=== PATIENT | female | born 1940 | race Caucasian/White ===

== ENCOUNTER 2016-10-29 08:51 | Observation (INO) ==
[2016-10-29] MEDS ORDERED: Aspirin 81 MG TAB.CHEW PO STA (09:18)
--- NOTE | 2016-10-29 09:21 | Emergency Department Note ---
Disposition Clinical Impression: Chest pain, Chest pain, rule out acute myocardial infarction Disposition: Admitted As Inpatient Chest Pain HPI - General Chief Complaint: ED Chest Pain Stated Complaint: CP Time Seen by Provider: 10/29/16 09:07 Source: patient Limitations: no limitations - History of Present Illness HPI Narrative: 76-year-old female with history of mesenteric and splenic vein thrombosis presents with chief complaint of chest pain. Patient said her pain started in her left arm one week ago and then went to her her left shoulder, currently it is in her left neck. Yesterday the pain went to her upper back and chest. Pain is an ache it is not associated nausea, vomiting, diaphoresis, shortness of breath. Denies any history of heart disease. Denies history of congestive heart failure. Patient is an active smoker since age 14. She has a family history of cardiac disease. Severity scale (1-10): 5 - Related Data Home Medications Medication Instructions Recorded Confirmed Metoprolol [Lopressor] 12.5 mg PO DAILY 02/03/15 06/14/15 Simvastatin [Zocor] 10 mg PO HS 02/03/15 06/14/15 GlipiZIDE [Glucotrol] 10 mg PO DAILY 02/18/15 06/14/15 Pantoprazole Sodium [Protonix] 40 mg PO DAILY 02/18/15 06/14/15 Allergies Allergy/AdvReac Type Severity Reaction Status Date / Time codeine AdvReac Gastrointestinal Verified 10/29/16 11:58 Upset Review of Systems: Constitutional: Denies fever, chills HEENT: Denies headache, vision changes, neck pain, sore throat, rhinorrhea Heart: Patient states she has chest pain, denies palpitations Lungs: Denies shortness of breath cough Abdomen: Denies abdominal pain nausea vomiting diarrhea Extremities: Reports swelling, denies lower extremity pain. Neuro: Denies numbness, and tingling Chest Pain PMH - Past Medical History Medical history: Reports: COPD, diabetes - Social History Smoking Status: Current every day smoker Alcohol use: Reports: none Drug use: Reports: none Physical Exam General: Alert and oriented to place time and situation. Without distress HEENT: Head atraumatic, normocephalic, EOMI, PERRLA, neck nontender to palpation , absent Lymphadenopathy, Moist Mucous Membranes, Heart: Regular rate and rhythm with no murmur Lungs: Decreased breath sounds bilaterally with diffuse wheezing. Abdomen: Soft nontender, nondistended positive bowel sounds Extremities: Bilateral 2+ pitting edema with mild redness on the distal fairchild. In: Patient has raised brown crusted lesion on her right back measuring 1.5 cm x 2 cm. She has a similar lesion on her abdomen, Neuro: Cranial nerves II through XII intact, sensation equal bilaterally, strength upper and lower extremity 5/5, alert oriented 3 Vascular: Pedal and radial pulses 2 out of 4 - General Limitations: no limitations General appearance: alert, in no apparent distress Course Course Narrative: Patient.EKG, troponin, chest x-ray, CBC, BMP. - Reevaluation(s) Reevaluation #1: Troponin, EKG, CBC, chest x-ray, BMP negative. BNP 109. Patient echocardiogram in 2014 showing 60% ejection fraction with mild diastolic dysfunction, no valvular disease, no wall motion abnormalities. She had a nuclear stress test in 2013negative for ischemia with a gated EF of 70%. Time: 10:32 Reevaluation #2: CTA negative. Will admit for CP rule out. Time: 11:11 Reevaluation #3: Dr. Figueredo accepted patient. Time: 11:26 Vital Signs Temperature 97.8 F 10/29/16 08:51 Pulse Rate 79 10/29/16 08:51 Respiratory Rate 22 10/29/16 08:51 Blood Pressure 137/75 10/29/16 08:51 O2 Sat by Pulse Oximetry 95 10/29/16 08:51 Temperature 97.8 F 10/29/16 08:51 Pulse Rate 79 10/29/16 08:51 Respiratory Rate 22 10/29/16 08:51 Blood Pressure 137/75 10/29/16 08:51 O2 Sat by Pulse Oximetry 95 10/29/16 08:51 Oxygen Delivery Oxygen Delivery Room Air Chest Pain - Medical Records Medical records reviewed: Yes I reviewed the patient's medical records. - Lab Data Lab results reviewed: Yes I reviewed the patient's lab results. Result diagrams: 10/29/16 09:54 10/29/16 09:54 Lab Results 10/29/16 10/29/16 10/29/16 Range/Units 09:54 09:54 09:54 WBC 7.3 (4.3-11.1) K/mcL RBC 4.52 (3.82-4.97) M/mcL Hgb 12.5 (11.5-15.4) g/dL Hct 38.8 (35.3-44.9) % MCV 85.8 (83.0-100.0) fL MCH 27.7 L (28.0-33.3) pg MCHC 32.2 (31.6-35.5) g/dL RDW 13.9 (11.5-14.5) % Plt Count 288 (140-400) K/mcL MPV 10.1 (9.4-12.4) fL Immature Gran % 0.4 (0-4) % Seg Neutrophils % 62.6 % Lymphocytes % 18.8 % Monocytes % 9.8 % Eosinophils % 7.8 % Basophils % 0.6 % Neutrophils # 4.6 (1.6-8.9) K/mcL Lymphocytes # 1.4 (0.6-4.6) K/mcL Monocytes # 0.7 (0.0-1.3) K/mcL Eosinophils # 0.6 (0.0-0.6) K/mcL Basophils # 0.0 (0.0-0.2) K/mcL Immature Plt Fraction 5.0 (1.1-6.1) % PT 11.1 (9.4-12.1) Seconds INR 1.0 APTT 29.8 (26.0-36.0) Seconds Sodium 141 (136-145) mEq/L Potassium 4.5 (3.5-4.5) mEq/L Chloride 109 (98-109) mEq/L Carbon Dioxide 23 (19-29) mEq/L BUN 15 (7-20) mg/dL Creatinine 0.96 (0.57-1.11) mg/dL Est GFR ( Amer) > 60 (> 60) Est GFR (Non-Af Amer) 57 L (> 60) BUN/Creatinine Ratio 16 (6-26) Glucose 262 H (70-99) mg/dL Calculated Osmolality 302 H (280-300) Calcium 8.8 (8.6-10.8) mg/dL Troponin I (0-0.03) ng/mL B-Natriuretic Peptide (0-100) pg/mL 10/29/16 10/29/16 Range/Units 09:54 09:54 WBC (4.3-11.1) K/mcL RBC (3.82-4.97) M/mcL Hgb (11.5-15.4) g/dL Hct (35.3-44.9) % MCV (83.0-100.0) fL MCH (28.0-33.3) pg MCHC (31.6-35.5) g/dL RDW (11.5-14.5) % Plt Count (140-400) K/mcL MPV (9.4-12.4) fL Immature Gran % (0-4) % Seg Neutrophils % % Lymphocytes % % Monocytes % % Eosinophils % % Basophils % % Neutrophils # (1.6-8.9) K/mcL Lymphocytes # (0.6-4.6) K/mcL Monocytes # (0.0-1.3) K/mcL Eosinophils # (0.0-0.6) K/mcL Basophils # (0.0-0.2) K/mcL Immature Plt Fraction (1.1-6.1) % PT (9.4-12.1) Seconds INR APTT (26.0-36.0) Seconds Sodium (136-145) mEq/L Potassium (3.5-4.5) mEq/L Chloride (98-109) mEq/L Carbon Dioxide (19-29) mEq/L BUN (7-20) mg/dL Creatinine (0.57-1.11) mg/dL Est GFR ( Amer) (> 60) Est GFR (Non-Af Amer) (> 60) BUN/Creatinine Ratio (6-26) Glucose (70-99) mg/dL Calculated Osmolality (280-300) Calcium (8.6-10.8) mg/dL Troponin I 0.00 (0-0.03) ng/mL B-Natriuretic Peptide 109 H (0-100) pg/mL - Radiology Data Radiology results reviewed: Yes I reviewed the patient's radiology results. - EKG Data EKG attestation: Yes I reviewed and interpreted this EKG. EKG results narrative: Sinus with rate 75, no ST elevation or depression, flattening of T waves. No changes from previous EKG. Sinus rhythm. Heart Score - Score History: Moderately Suspicious EKG: Normal Age: Greater than 65 Risk Factors: Equal/Greater than 3 risk factor or history of atherosclerotic disease Troponin: Less than normal limit HEART Score Total: 5 Attestation Statement - Attestation Attestation: I performed a history and physical examination of the patient and discussed his management with the resident. I reviewed the residents note and agree with the documented findings and plan of care. This is a 76-year-old female who presented with chest pain that sounds like she does not really have any previous cardiac history but had multiple risk factors from a cardiac standpoint. She also had a history of a splenic vein thrombosis in the past although when asking the patient about this she did not seem to remember much about that. In any case it seemed to be a potential risk for a pulmonary embolism. We have ruled out pulmonary embolism by a negative CT scan of the chest. Her first troponin has come back negative. She had some lower extremity swelling however there is no evidence of congestive heart failure on her chest x-ray. Her beta natruretic peptide is a little bit elevated. Lungs are clear, heart is regular. EKG interpreted by me showing sinus rhythm at a rate of 75, QRS of 92, QTC of 400, axis of 11. No ischemic changes. We have arranged admission to the hospitalist service See resident note for further details this patient's care.
[2016-10-29 10:04] LABS: Basophils % 0.6 %; Eosinophils # 0.6 K/mcL (0.0-0.6); Eosinophils % 7.8 %; Hematocrit 38.8 % (35.3-44.9); Hemoglobin 12.5 g/dL (11.5-15.4); Immature Granulocytes % 0.4 % (0-4); Lymphocytes # 1.4 K/mcL (0.6-4.6); Lymphocytes % 18.8 %; Mean Corpuscular HGB Conc 32.2 g/dL (31.6-35.5); Mean Corpuscular Hemoglobin 27.7 pg (28.0-33.3); Mean Corpuscular Volume 85.8 fL (83.0-100.0); Mean Platelet Volume 10.1 fL (9.4-12.4); Monocytes # 0.7 K/mcL (0.0-1.3); Monocytes % 9.8 %; Neutrophils # 4.6 K/mcL (1.6-8.9); Platelet Count 288 K/mcL (140-400); Red Blood Count 4.52 M/mcL (3.82-4.97); Red Cell Distribution Width 13.9 % (11.5-14.5); Segmented Neutrophils % 62.6 %
[2016-10-29 10:09] LABS: Prothrombin Time 11.1 Seconds (9.4-12.1)
[2016-10-29 10:11] LABS: Activated Partial Thrombo Time 29.8 Seconds (26.0-36.0)
[2016-10-29 10:17] LABS: BUN/Creatinine Ratio 16 (6-26); Blood Urea Nitrogen 15 mg/dL (7-20); Calcium 8.8 mg/dL (8.6-10.8); Carbon Dioxide 23 mEq/L (19-29); Chloride 109 mEq/L (98-109); Glucose 262 mg/dL (70-99); Osmolality,Calculated 302 (280-300); Potassium 4.5 mEq/L (3.5-4.5); Sodium 141 mEq/L (136-145); eGFR For African Americans > 60 (> 60); eGFR For Non-African Americans 57 (> 60)
[2016-10-29] MEDS ORDERED: Naloxone 0.4 MG/ML INJ IVP PRN (13:12)
--- NOTE | 2016-10-29 13:21 | Internal Med History&Physical ---
Date of Encounter: 10/29/16 Time of Encounter: 12:45 Assessment and Plan (1) Chest pain Current visit: Yes Status: Acute Patient with chest pain radiating to the back. Risk factors for coronary artery disease include age, sex, chronic smoking history, diabetes and hypertension. Will place patient for observation in the hospital. Trend troponins. Get 2-D echocardiogram. Telemetry. Check lipid profile. For associated pedal edema, we will give IV Lasix. Qualifiers: Chest pain type: precordial pain Qualified Code(s): R07.2 - Precordial pain (2) Left shoulder pain Current visit: Yes Status: Acute Acute on chronic left shoulder pain. Related to arthritis, possibly rheumatoid arthritis. Patient is on leflunomide and Plaquenil. Being followed by rheumatology. Patient has developed a erythematous macular spots on her extremities. We will stop leflunomide for now. Consult rheumatology. Qualifiers: Chronicity: acute Qualified Code(s): M25.512 - Pain in left shoulder (3) Essential hypertension Current visit: Yes Status: Chronic Monitor blood pressure. Resume home medications. We will adjust medications based on response (4) Diabetes mellitus Current visit: Yes Status: Chronic Check A1c. Monitor blood sugars. Sliding scale insulin. Diabetic diet. Qualifiers: Diabetes mellitus type: type 2 Diabetes mellitus complication status: with hyperglycemia Diabetes mellitus alf insulin use: without alf use Qualified Code(s): E11.65 - Type 2 diabetes mellitus with hyperglycemia (5) COPD (chronic obstructive pulmonary disease) Current visit: Yes Status: Chronic No acute exacerbation. Use albuterol inhalers as needed. Qualifiers: COPD type: unspecified COPD Qualified Code(s): J44.9 - Chronic obstructive pulmonary disease, unspecified (6) Skin macule or macular rash Current visit: Yes Status: Acute Patient with macular spots on extremities. Will hold leflunomide. Consider dermatology consult. Internal Medicine - H&P: HPI Chief complaint: Left arm pain, shoulder pain and left chest and back pain Admitted From: Emergency Dept Plans for Post Hospital Care: Home History of present illness: Ms. Barber is a 76 year old female patient with a history of arthritis, splenic and mesenteric vein thrombosis, COPD and diabetes mellitus type 2 presented to the ER with complaints of left arm pain that has been going on for about 2 weeks and progressively worsening. She is also been having left-sided chest pain radiating to the back since yesterday. She also has left shoulder pain. She has had arthritis for a long time especially in her left shoulder and is unable to lift her left hand above her head as a result of this. She takes Plaquenil and leflunomide. She denies any fever chills or night sweats. She reports her heart rhythm problem and also reports occasional palpitations and pedal edema. She complains of hearing her heartbeat in her ears. She has also noticed many Red colored spots on her skin especially in her upper extremities. No nausea or vomiting. No fever chills or night sweats. No cough. She does use albuterol inhaler occasionally. Past Med Surg Social Fam HX - Past Medical History Attestation: Yes The following information was validated with the patient. Source: patient, old records reviewed Medical history: COPD, diabetes - Social History Smoking Status: Current every day smoker Alcohol use: none Drug use: none - Additional Family History Additional family history: Reviewed and found to be noncontributory Internal Medicine - H&P: Meds GlipiZIDE [Glucotrol] 20 mg PO DAILY 02/18/15 [History] Pantoprazole Sodium [Protonix] 40 mg PO DAILY 02/18/15 [History] Albuterol Sulfate [Ventolin Hfa] 2 puff IH Q4H PRN 10/29/16 [History] Alendronate Sodium [Fosamax] 70 mg PO QWEEK 10/29/16 [History] Hydroxychloroquine [Plaquenuil] 300 mg PO DAILY 10/29/16 [History] Leflunomide [Arava] 20 mg PO DAILY 10/29/16 [History] Metoprolol XL (24 HR) Succ [Toprol XL] 25 mg PO DAILY 10/29/16 [History] Pravastatin Sodium [Pravachol] 80 mg PO DAILY 10/29/16 [History] Allergies codeine Adverse Reaction (Verified 10/29/16 11:58) Gastrointestinal Upset All Systems PM: A 10-system review of systems was performed and is negative for pertinent findings except as documented above in the HPI. - Constitutional Constitutional: no chills, no fever(s), no night sweats - EENT Eyes: no change in vision, no discharge, no pain, no photophobia Ears: no ear discharge, no ear pain, no tinnitus Nose, mouth and throat: no dysphagia, no nasal discharge, no neck pain, no sore throat - Cardiovascular Cardiovascular ROS IM: chest pain, edema, palpitations, no diaphoresis, no dyspnea, no lightheadedness, no syncope - Respiratory Respiratory: no cough, no dyspnea, no wheezing, no excessive phlegm production - Gastrointestinal Gastrointestinal: no abdominal pain, no diarrhea, no hematemesis, no hematochezia, no melena, no nausea, no vomiting - Genitourinary Genitourinary: no change in urinary stream, no dysuria, no flank pain, no hematuria - Musculoskeletal Musculoskeletal ROS IM: arthralgias, no numbness, no tingling Additional comments: Left shoulder pain - Integumentary Integumentary IM: no rash, no unusual bruising - Neurological Neurological ROS: no confusion, no convulsions, no focal weakness, no numbness, no tingling, no tremor(s) - Hematologic/Lymphatic Hematologic/Lymphatic: no easy bruising - Constitutional Vitals: Temp Pulse Resp BP Pulse Ox 0 F L 69 18 172/85 95 10/29/16 13:05 10/29/16 10:56 10/29/16 13:05 10/29/16 13:05 10/29/16 08:51 General appearance: Present: cooperative, mild distress, A&O X 3, answers questions appropriately - Eye Eye exam: Present: EOMI, PERRL, conjuntiva pink, sclera anicteric - Neck Neck exam general surgery: Present: supple, trachea midline. Absent: lymphadenopathy - Respiratory Respiratory exam: Present: prolonged expiratory phase, rhonchi, wheezes. Absent : accessory muscle use, rales - Cardiovascular Cardiovascular exam: Present: RRR, +S1, +S2. Absent: diastolic murmur, gallop, rubs, systolic murmur - GI/Abdominal GI/Abdominal exam: Present: normal bowel sounds, soft, no peritoneal signs. Absent: distended, tenderness - Extremities Exam Extremities exam: Present: pedal edema (Bilateral pitting), warm, radial pulses palpable and symetrical. Absent: calf tenderness, cyanotic Additional comments: Tenderness over the left shoulder joint over the glenohumeral joint and over the scapula. Decreased range of motion at the left shoulder joint - Neurological Exam Neurological exam: Present: alert, oriented X3, no focal deficits. Absent: facial droop, speech deficit - Skin Skin exam: Present: dry, intact Internal Med - H&P Results - Labs CBC & Chem 7: 10/29/16 09:54 10/29/16 09:54 - EKG Data -: EKG Interpreted by Myself EKG shows normal: sinus rhythm - EKG Data EKG comments: 10/29/16 13:[address] segment changes - Impressions Impressions Chest X-Ray 10/29/16 09:18 IMPRESSION: No acute process. D/ / Sal Moore MD / Sal Moore MD Interpreting Provider: Sal Moore MD Chest CTA 10/29/16 09:26 IMPRESSION: No evidence of pulmonary embolism or acute pulmonary abnormality. D/ / Sal Moore MD / Sal Moore MD Interpreting Provider: Sal Moore MD - Attending Attestation This document has been at least partially created by [employer] recognition technology by Dr. Figeuredo. Errors in grammar, wording or other phrases may exist. If errors are found after the documentation is signed, they will be addressed individually in the addendum section of this document when appropriate.
[2016-10-29] MEDS ORDERED: D5% in Water 1,000 ML IVC PRN (13:33)
[2016-10-29] MEDS ORDERED: Dextrose Gel 15 GM PO PRN ×2 (13:33)
[2016-10-29] MEDS ORDERED: *HR* Dextrose 50 % in Water (Syg) 50 ML SYRINGE IVP PRN (13:33)
[2016-10-29] MEDS: traMADol 50 MG TABLET PO PRN ×2 (15:02→23:37)
[2016-10-29] MEDS ORDERED: *HR* Morphine 2 MG/ML SYRINGE IVP PRN (17:03)
[2016-10-29] MEDS: Insulin LISPRO 300 UNITS/3 ML VIAL SQ SCH ×2 (18:14→20:20)
[2016-10-30 03:59] LABS: Hemoglobin A1C 7.5 %
[2016-10-30 04:05] LABS: Chol/HDL Ratio 3.5 (0-4.9)
[2016-10-30] MEDS: traMADol 50 MG TABLET PO PRN ×2 (04:11→13:13)
[2016-10-30] MEDS: Insulin LISPRO 300 UNITS/3 ML VIAL SQ SCH ×4 (07:59→21:39)
[2016-10-30] MEDS: Metoprolol XL (24 HR) Succ 25 MG TAB.ER.24H PO SCH (08:02)
[2016-10-30] MEDS ORDERED: Regadenoson 0.4 MG/5 ML SYRINGE IVP ONE (08:44)
--- NOTE | 2016-10-30 09:46 | ECHO - Doppler Report ---
Echocardiogram Name: Lorena Barber Date of Study: 10/30/2016 Date: 1940 Ht: 64.0 in Medical Record#: [id number] Age: 76 Wt: 169.0 lb Gender: Female BSA: 1.82 Order #: [id number] Location: [facility] Room #: 3B12 Reading Physician: Patrick Lilly DO, FACCYN Fowler Reconcilement Clerk: Maurisio Glass RN Ordering Physician: Tacho Figueredo MD Primary Physician: Mary Galeana MD Indications: Shortness of breath Impressions: LVEF 60%. Normal LV chamber size, wall thickness and function. Mild left ventricular diastolic dysfunction. Normal right ventricular structure and function. Unable to estimate RVSP due to lack of TR jet. No significant valvular dysfunction. Left Ventricular Wall Motion: Rest Echo Findings All wall segments showed normal motion. Findings: Study Quality * Technically adequate exam. ECG Findings * Normal sinus rhythm. Left Ventricle * LVEF 60%. * Normal LV chamber size, wall thickness and function. * Mild left ventricular diastolic dysfunction. Right Ventricle * Normal right ventricular structure and function. Left Atrium * Mildly dilated left atrium. Right Atrium * Mildly dilated right atrium. Interatrial Septum * No evidence of PFO by color Doppler. Aortic Valve * Trileaflet aortic valve with normal function. * No aortic regurgitation. * No aortic stenosis. Mitral Valve * Normal mitral valve structure and function. * No mitral regurgitation. * No mitral stenosis. Tricuspid Valve * Normal tricuspid valve structure and function. * No tricuspid regurgitation. * Unable to estimate RVSP due to lack of TR jet. Pulmonic Valve * Normal pulmonic valve structure and function. * No pulmonic regurgitation. Aorta * Normally sized aortic root. Pericardium * The pericardium appears normal. IVC * Normal IVC dimensions and inspiratory collapse. Pulmonary Artery * Normal visualized portions of the main pulmonary artery. History Diabetes Hypercholesteremia History of Smoking Years 52 Packs 0.5 Family History of CAD 01/28/2015 a Previous Echo was performed. Measurements: BP: 118/ 75 2D Normal Values RVIDd: 2.20 cm <2.7 cm IVSd: .90 cm 0.6 - 1.0 cm LVIDd: 4.40 cm 3.7 - 5.6 cm LVPWd: .90 cm 0.6 - 1.1 cm LVIDs: 2.80 cm 1.5 - 3.6 cm LA: 3.70 cm 2.0 - 4.0cm %FS: 36.40 cm >25 % LVOT Diam: 1.80 cm LA volume: 60 Mitral Valve Peak E:.60 m/sec Peak A:.99 m/sec E/A Ratio:0.6 Peak E' Lat Cody:9.65 cm/s Peak E' Med Cody:5.56 cm/s E/E' Lat Ratio:6.2 E/E' Med Ratio:10.7 Updated by Patrick Lilly DO, FARRAH, CYN, MELISA on 10/30/2016 9:40:27 AM electronically signed on 10/30/2016 9:41:02 AM with status of Final Wall Motion Palacio: 1=Normal, 2=Hypokinesis, 3=Akinesis, 4=Dyskinesis, 5=Aneurysmal, 6=Hyperkinetic, X=Not Visualized (Blank)=Missing
--- NOTE | 2016-10-30 11:56 | Electrocardiograph Report ---
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
--- NOTE | 2016-10-30 14:20 | Internal Med Progress Note ---
Date of Encounter: 10/30/16 Time of Encounter: 09:50 - Assessment and plan (1) Chest pain Current Visit: Yes Status: Acute Assessment and plan: Troponins have been negative. Echocardiogram shows normal ejection fraction with normal systolic function. There is mild LV diastolic dysfunction. Cardiac stress test was ordered for today. However patient does not wish to undergo a stress test at this time. Continue statin, beta amisha. Qualifiers: Chest pain type: precordial pain Qualified Code(s): R07.2 - Precordial pain (2) Left shoulder pain Current Visit: Yes Status: Acute Assessment and plan: Related to arthritis. Shoulder x-ray shows degenerative changes. Consult orthopedics for further recommendations. Moderate risk for complications due to use of narcotic medications to control pain Qualifiers: Chronicity: acute Qualified Code(s): M25.512 - Pain in left shoulder (3) Essential hypertension Current Visit: Yes Status: Chronic Assessment and plan: Blood pressure is well controlled (4) Diabetes mellitus Current Visit: Yes Status: Chronic Assessment and plan: Blood sugars are uncontrolled. We will add Long-acting insulin. Diabetic diet. Qualifiers: Diabetes mellitus type: type 2 Diabetes mellitus complication status: with hyperglycemia Diabetes mellitus long-term insulin use: without long-term use Qualified Code(s): E11.65 - Type 2 diabetes mellitus with hyperglycemia (5) COPD (chronic obstructive pulmonary disease) Current Visit: Yes Status: Chronic Assessment and plan: Not in acute exacerbation. Qualifiers: COPD type: unspecified COPD Qualified Code(s): J44.9 - Chronic obstructive pulmonary disease, unspecified (6) Skin macule or macular rash Current Visit: Yes Status: Acute Assessment and plan: Discussed with rheumatology. Given the appearance of the rash, he does not appear to be related to leflunomide use. Recommend resuming leflunomide and follow-up with rheumatology as outpatient. - Subjective Interval history: Patient's chest pain has subsided. She continues to have left shoulder pain although this is improving compared to yesterday. No fever chills or night sweats overnight. No palpitations. No shortness of breath. No wheezing - Constitutional Vitals: Temp Pulse Resp BP Pulse Ox 97.3 F L 68 16 115/73 91 10/30/16 07:17 10/30/16 07:17 10/30/16 07:17 10/30/16 07:17 10/30/16 07:17 General appearance: Present: cooperative, mild distress, A&O X 3, answers questions appropriately - Respiratory Respiratory exam: Present: CTAB. Absent: accessory muscle use, rales, rhonchi, wheezes - Cardiovascular Cardiovascular exam: Present: RRR, +S1, +S2. Absent: diastolic murmur, gallop, rubs, systolic murmur - Extremities Exam Extremities exam: Present: tenderness, warm, radial pulses palpable and symetrical. Absent: calf tenderness, cyanotic, pedal edema Additional comments: Tenderness in the left shoulder joint - Neurological Exam Neurological exam: Present: alert, oriented X3, no focal deficits. Absent: facial droop, speech deficit - Skin Skin exam: Present: dry, intact Additional comments: Macular rash spots are improving Internal Medicine: Result - Labs CBC & Chem 7: 10/29/16 09:54 10/29/16 09:54 Labs: Cardiac Enzymes 10/29/16 10/29/16 Range/Units 16:21 23:17 Troponin I 0.00 0.00 (0-0.03) ng/mL - ABG Interpretation ABG results: PT/INR, D-dimer PT 11.1 Seconds (9.4-12.1) 10/29/16 09:54 - Impressions Impressions Shoulder X-Ray 10/30/16 09:39 IMPRESSION: Chronic degenerative changes of the left shoulder. D/ / Sree Ruiz MD / Sree Ruiz MD Interpreting Provider: Sree Ruiz MD Consult Discharge Plan - Plan Referrals: Mary Galeana MD [Primary Care Provider] - - Attending Attestation This document has been at least partially created by [employer] recognition technology by Dr. Figueredo. Errors in grammar, wording or other phrases may exist. If errors are found after the documentation is signed, they will be addressed individually in the addendum section of this document when appropriate.
[2016-10-30] MEDS ORDERED: Acetaminophen 325 MG TABLET PO PRN (16:35)
[2016-10-30] MEDS ORDERED: Dexamethasone 4 MG/ML VIAL INTRAART ONE ×2 (20:04→20:45)
[2016-10-30] MEDS ORDERED: MethylPREDNISolone Acet(DEPOT) 80 MG/ML VIAL INTRAART ONE ×2 (20:06→20:59)
--- NOTE | 2016-10-30 20:20 | Orthopedic Consult Note ---
Date of Encounter: 10/30/16 Time of Encounter: 20:11 History of Present Illness Chief complaint: Left shoulder pain HPI: Ms. Barber is a 76 year old [id number] female who is well-known to me from previous treatment including a left total hip arthroplasty more than 2 years ago. The patient has a history of rheumatoid arthritis and has multiple joint involvement. Patient states that she has had left shoulder and arm pain with extension up into her neck for about the past 2-3 weeks. She also complains of limited ability to elevate or abductor her shoulder. As describes some vague numbness in the fingers. She denies any acute trauma. For complete history and physical data please see the completed portion of the medical record. Pertinent orthopedic examination reveals no overt rotator cuff weakness at the side. Patient does have abduction limitation to probably about 70-75 degrees. She is able to forward flex about 90 degrees. He can passively abduct her to 90 degrees at which point I get strong resistance. She has positive impingement signs. She does have crepitance with range of motion. I reviewed x-rays of the left shoulder. This reveals a somewhat high riding humeral head with a very narrowed subacromial space with near articulation of the humeral head and the acromion. There is rather advanced arthritic changes at the acromioclavicular joint. There are some generalized osteopenia. Impression: Left rotator cuff arthropathy, arthritic shoulder with probable rotator cuff tear. Secondary adhesive capsulitis left shoulder. Recommendation: I discussed with the patient this is a chronic condition and treatment options are either symptomatic or possibly more aggressive. Symptomatic treatment would be a corticosteroid injection and more aggressive treatment would include possible therapy program to try to improve her function or even more aggressive in the form of either a manipulation and arthroscopic surgery or ultimate treatment would be probably a reverse ball shoulder replacement. We discussed his treatment options at length and both came to the conclusion that symptomatic treatment with a subacromial steroid injection would be her best bet. I have made plans to proceed with this now. Informed consent has been obtained. An awaiting medications from pharmacy, 0.5% Marcaine , 10 mg of Decadron and 80 mg of Depo-Medrol will be administered. Patient is stable from an orthopedic sporty view. I will be happy to see her in follow-up as an outpatient. Thank you very much for alignment is seen care for Mrs. Barber. Sincerely, Jose Daniel Lerner,DO Past Med Surg Social Fam HX - Past Medical History Medical history: COPD, diabetes Psychiatric history: no psych history - Past Surgical History Surgical History: - Social History Smoking Status: Current every day smoker Packs per day: 1 Smokeless Tobacco Status: No Alcohol use: none Drug use: none Medications and Allergies GlipiZIDE [Glucotrol] 20 mg PO DAILY 02/18/15 [History] Pantoprazole Sodium [Protonix] 40 mg PO DAILY 02/18/15 [History] Albuterol Sulfate [Ventolin Hfa] 2 puff IH Q4H PRN 10/29/16 [History] Alendronate Sodium [Fosamax] 70 mg PO QWEEK 10/29/16 [History] Hydroxychloroquine [Plaquenuil] 300 mg PO DAILY 10/29/16 [History] Leflunomide [Arava] 20 mg PO DAILY 10/29/16 [History] Metoprolol XL (24 HR) Succ [Toprol XL] 25 mg PO DAILY 10/29/16 [History] Pravastatin Sodium [Pravachol] 80 mg PO DAILY 10/29/16 [History] Allergies codeine Adverse Reaction (Verified 10/29/16 11:58) Gastrointestinal Upset All Systems Reviewed: A 10-system review of systems was performed and is negative for pertinent findings except as documented above in the HPI. Physical Exam - Constitutional Vitals: Temp Pulse Resp BP Pulse Ox 97.6 F 69 16 147/76 93 10/30/16 18:26 10/30/16 18:26 10/30/16 18:26 10/30/16 18:26 10/30/16 18:26 Results - Labs Result Diagrams: 10/29/16 09:54 10/29/16 09:54 Labs: Abnormal lab results MCH 27.7 pg (28.0-33.3) L 10/29/16 09:54 Est GFR (Non-Af Amer) 57 (> 60) L 10/29/16 09:54 Glucose 262 mg/dL (70-99) H 10/29/16 09:54 POC Glucose 235 (58-89) H 10/30/16 10:47 Hemoglobin A1c 7.5 % (-5.6) H 10/30/16 03:22 Calculated Osmolality 302 (280-300) H 10/29/16 09:54 B-Natriuretic Peptide 109 pg/mL (0-100) H 10/29/16 09:54 All other labs normal. - Diagnostic results Shoulder x-ray: image reviewed Consult Discharge Plan - Plan Referrals: Yadira Morse CNP [Advanced Practice Nurse] - 11/10/16 11:00 am Mary Galeana MD [Primary Care Provider] -
[2016-10-31 07:51] VITALS: BP 111/75
[2016-10-31] MEDS: Metoprolol XL (24 HR) Succ 25 MG TAB.ER.24H PO SCH (08:54)
[2016-10-31] MEDS ORDERED: (Leflunomide [Arava] 20 MG) PO SCH (09:00)
--- NOTE | 2016-10-31 10:58 | Discharge Summary ---
Date of Encounter: 10/31/16 Time of Encounter: 10:52 - Discharge Diagnosis (1) Rotator cuff arthropathy Priority: Primary Status: Acute Qualifiers: Laterality: left Qualified Code(s): M12.812 - Other specific arthropathies , not elsewhere classified, left shoulder (2) Chest pain Priority: Primary Status: Acute Qualifiers: Chest pain type: precordial pain Qualified Code(s): R07.2 - Precordial pain (3) Left shoulder pain Priority: Primary Status: Acute Qualifiers: Chronicity: chronic Qualified Code(s): M25.512 - Pain in left shoulder; G89.29 - Other chronic pain (4) Essential hypertension Priority: Secondary Status: Chronic (5) Diabetes mellitus Priority: Secondary Status: Chronic Qualifiers: Diabetes mellitus type: type 2 Diabetes mellitus complication status: with hyperglycemia Diabetes mellitus long-term insulin use: without long-term use Qualified Code(s): E11.65 - Type 2 diabetes mellitus with hyperglycemia (6) COPD (chronic obstructive pulmonary disease) Priority: Secondary Status: Chronic Qualifiers: COPD type: unspecified COPD Qualified Code(s): J44.9 - Chronic obstructive pulmonary disease, unspecified - Discharge Medications Home Medications: GlipiZIDE [Glucotrol] 20 mg PO DAILY 02/18/15 [History] Pantoprazole Sodium [Protonix] 40 mg PO DAILY 02/18/15 [History] Albuterol Sulfate [Ventolin Hfa] 2 puff IH Q4H PRN 10/29/16 [History] Alendronate Sodium [Fosamax] 70 mg PO QWEEK 10/29/16 [History] Hydroxychloroquine [Plaquenuil] 300 mg PO DAILY 10/29/16 [History] Leflunomide [Arava] 20 mg PO DAILY 10/29/16 [History] Metoprolol XL (24 HR) Succ [Toprol Xl] 25 mg PO DAILY 10/29/16 [History] Pravastatin Sodium [Pravachol] 80 mg PO DAILY 10/29/16 [History] Allergies/Adverse Reactions: Allergies codeine Adverse Reaction (Verified 10/29/16 11:58) Gastrointestinal Upset Procedures/tests Complete & Pending: Procedures Performed prior 72 hours Category Date Time Status NM antonella perf SPECT multi [NM] Routine Exams 10/30/16 07:51 Ordered EV echocardiogram Routine Y 10/30/16 13:14 Completed Date of admission: 10/29/16 11:34 Primary care physician: Mary Galeana, Consults: 10/29/16 14:57 Consult to Supervisor Product Inspection [CONS] Routine Reason for SW Consult: 76 home alone 10/30/16 09:40 Consult to Orthopedic Surgery [CONS] Routine Consulting Provider: Jose Daniel Lerner Reason for Consult: Left shoulder pain Time Notified: 09:40 Call Completed: Yes Discharging clinician: Grisel Donahue Anticipated date of discharge: 10/31/16 - Patient Status Disposition: Home, Self-Care Condition: Good Functional capacity at discharge: independent ambulation Overall status at discharge: patient is progressing back to baseline - Discharge Instructions Instructions: Chronic Obstructive Pulmonary Disease (DC) Follow Up With: Yadira Morse CNP [Advanced Practice Nurse] - 11/07/16 2:00 pm Mary Galeana MD [Primary Care Provider] - Additional Instructions: F/up with , Orthopedic Surgery, in 2-3 weeks - Diet and Activity Activity: resume usual activities as tolerated Diet: diabetic diet, low fat, low cholesterol, low salt diet Hospital course: Ms. Barber is a 76 year old female with the above medical problems was admitted with left-sided chest and shoulder pain. Initial labs and EKG done in the emergency room showed no acute abnormality. Telemetry monitoring remained uneventful and serial troponins were negative for ACS. Echocardiogram showed preserved ejection fraction with mild left ventricular diastolic dysfunction. CT angiogram of chest was done which was negative for PE. Patient was recommended stress test, which she refused. Left shoulder x-ray revealed osteoarthritis. Orthopedic surgery was consulted and patient was diagnosed with left shoulder rotator cuff arthropathy and she received steroid injection with improvement in symptoms. Patient is now medically stable for discharge with outpatient follow-up in orthopedics clinic. - Time Spent with Patient Total time spent providing and/or coordinating discharge services: Greater than 30 minutes (45 min) - Constitutional Vitals: Temp Pulse Resp BP Pulse Ox 97.7 F 85 17 111/75 90 10/31/16 07:50 10/31/16 07:50 10/31/16 07:50 10/31/16 07:50 10/31/16 07:50 General appearance: Present: A&O X 3, answers questions appropriately - Respiratory Respiratory exam: Present: CTAB. Absent: accessory muscle use, rales, rhonchi, wheezes - Cardiovascular Cardiovascular exam: Present: RRR, +S1, +S2. Absent: diastolic murmur, gallop, rubs, systolic murmur
--- NOTE | 2016-11-03 08:04 | Nuclear Medicine Stress Report ---
Regadenoson Nuclear Stress Name: Lorena Barber Date of Study: 10/30/2016 Date: 1940 Ht: Medical Record#: [id number] Age: 76 Wt: Gender: Female Order #: [id number] Location: [facility] Room: [facility] [place] Physician: Patrick Lilly DO, FACC, FASE, FASNC Ordering Physician: Tacho Figueredo MD Primary Care Physician: Mary Galeana MD Stress Technologist: Cherie Norton RRT Past Due Accounts Clerk: Sylvain Frazier Indications: CP Impression: The apex, apical anterior, and apical inferior segments demonstrate a mild reduction in perfusion. Per reports, patient refused to complete the study. Stress imaging not obtained. Unclear if defects seen on rest imaging due to artifact or prior infarct. History: Hypertension Diabetes History of Smoking Nuclear Summary: SPECT myocardial perfusion imaging using Tc99m Sestamibi given intravenously was performed at rest and following cardiac stress testing. The resting images were obtained following initial dose of 10.9 mCi. Findings: Apical Perfusion Rest * The apex, apical anterior, and apical inferior segments demonstrate a mild reduction in perfusion. Updated by Patrick Lilly DO, FACC, FASE, FASNC on 11/03/2016 7:59:47 AM electronically signed on 11/03/2016 8:01:17 AM with status of Final
== END 2016-10-31 12:24 | disposition home health service (06) ==
LOC: EMEROO 08:51 → 3BNU 08:51 → SUATTDRO 11:34 → 3BNU 13:10
PROVIDERS: ADMIT Internal Medicine; ATTEND Internal Medicine

== ENCOUNTER 2017-04-18 09:40 | Inpatient (IN) ==
--- NOTE | 2017-04-18 09:55 | Emergency Department Note ---
Disposition Clinical Impression: Pneumonia, Acute exacerbation of chronic obstructive airways disease, ST segment changes on electrocardiogram Disposition: Admitted As Inpatient Condition: Fair General Adult HPI - General Chief complaint: ED Shortness of Breath/Dyspnea Stated complaint: JOHN Time Seen by Provider: 04/18/17 09:48 Source: patient Limitations: no limitations - History of Present Illness Pain Scale: 0 - Related Data Home Medications Medication Instructions Recorded Confirmed GlipiZIDE [Glucotrol] 10 mg PO QPM 02/18/15 04/18/17 Pantoprazole Sodium [Protonix] 40 mg PO DAILY 02/18/15 04/18/17 Albuterol Sulfate [Ventolin Hfa] 2 puff IH Q4H PRN 10/29/16 04/18/17 Alendronate Sodium [Fosamax] 70 mg PO QWEEK 10/29/16 04/18/17 Hydroxychloroquine [Plaquenuil] 300 mg PO DAILY 10/29/16 04/18/17 Leflunomide [Arava] 20 mg PO DAILY 10/29/16 04/18/17 Metoprolol XL (24 HR) Succ [Toprol 25 mg PO DAILY 10/29/16 04/18/17 Xl] Pravastatin Sodium [Pravachol] 80 mg PO DAILY 10/29/16 04/18/17 glipiZIDE [Glucotrol] 15 mg PO QAM 04/18/17 04/18/17 Allergies Allergy/AdvReac Type Severity Reaction Status Date / Time codeine AdvReac Gastrointestinal Verified 04/18/17 09:47 Upset Past Medical History - Past Medical History Medical history: Reports: COPD, diabetes Surgical history: Reports: Psychiatric history: Reports: no psych history - Social History Smoking Status: Current every day smoker Smokeless Tobacco Status: No Alcohol use: Reports: none Drug use: Reports: none Physical Exam - General Limitations: no limitations General appearance: alert, in distress Course Vital Signs Temperature 98.2 F 04/18/17 09:44 Pulse Rate 105 04/18/17 09:44 Respiratory Rate 24 04/18/17 09:44 Blood Pressure 149/63 04/18/17 09:44 O2 Sat by Pulse Oximetry 86 04/18/17 09:44 Temperature 96.8 F L 04/19/17 08:02 Pulse Rate 90 04/19/17 08:02 Respiratory Rate 18 04/19/17 11:13 Blood Pressure 105/54 04/19/17 08:02 O2 Sat by Pulse Oximetry 99 04/19/17 11:13 Oxygen Delivery Oxygen Delivery Nasal Cannula Medical Decision Making - Lab Data Result diagrams: 04/19/17 03:38 04/19/17 03:38 Lab Results 04/18/17 04/18/17 04/18/17 Range/Units 10:02 10:33 10:33 WBC (4.3-11.1) K/mcL RBC (3.82-4.97) M/mcL Hgb (11.5-15.4) g/dL Hct (35.3-44.9) % MCV (83.0-100.0) fL MCH (28.0-33.3) pg MCHC (31.6-35.5) g/dL RDW (11.5-14.5) % Plt Count (140-400) K/mcL MPV (9.4-12.4) fL Immature Gran % (0-4) % Seg Neutrophils % % Lymphocytes % % Monocytes % % Eosinophils % % Basophils % % Neutrophils # (1.6-8.9) K/mcL Lymphocytes # (0.6-4.6) K/mcL Monocytes # (0.0-1.3) K/mcL Eosinophils # (0.0-0.6) K/mcL Basophils # (0.0-0.2) K/mcL PT 12.0 (9.4-12.1) Seconds INR 1.1 APTT 21.5 L (26.0-36.0) Seconds Sodium (136-145) mEq/L Potassium (3.5-4.5) mEq/L Chloride (98-109) mEq/L Carbon Dioxide (19-29) mEq/L BUN (7-20) mg/dL Creatinine (0.57-1.11) mg/dL Est GFR ( Amer) (> 60) Est GFR (Non-Af Amer) (> 60) BUN/Creatinine Ratio (6-26) Glucose (70-99) mg/dL POC Glucose 252 H (58-89) Calculated Osmolality (280-300) Lactic Acid (0.5-2.2) mmol/L Calcium (8.6-10.8) mg/dL Phosphorus (2.3-4.7) mg/dL Magnesium (1.6-2.6) mg/dL Total Bilirubin (0.2-1.2) mg/dL Direct Bilirubin (0.0-0.5) mg/dL Indirect Bilirubin (0.0-1.2) mg/dL AST (5-34) Units/L ALT (0-55) Units/L Alkaline Phosphatase (38-126) Units/L Troponin I (0-0.03) ng/mL B-Natriuretic Peptide 97 (0-100) pg/mL Serum Total Protein (6.0-8.3) g/dL Albumin (3.5-5.0) g/dL Globulin (2.4-3.5) g/dL Albumin/Globulin Ratio (1.1-2.2) Urine Color (Yellow) Urine Clarity (Clear) Urine pH (5.0-8.0) pH Units Ur Specific Carlton (1.010-1.025) Urine Protein (Neg-Trace) mg/dL Urine Glucose (UA) (Normal) mg/dL Urine Ketones (Negative) mg/dL Urine Blood (Negative) Urine Nitrite (Negative) Urine Bilirubin (Negative) Urine Urobilinogen (Normal) mg/dL Ur Leukocyte Esterase (Negative) Urine Microscopic RBC (0-3) per hpf Urine Microscopic WBC (0-3) per hpf Ur Squamous Epith Cells (None-Few) per lpf Urine Bacteria (None-Few) per hpf Hyaline Casts (None-Few) per lpf Ur Culture Indicated? (NO) A. baumannii (PCR) (Not Detect) Betty albicans (PCR) (Not Detect) C. glabrata (PCR) (Not Detect) C. krusei (PCR) (Not Detect) C. parapsilosis (PCR) (Not Detect) C. tropicalis (PCR) (Not Detect) Enterobacteriac sp PCR (Not Detect) E. cloacae complex PCR (Not Detect) Enterococcus sp PCR (Not Detect) E. coli (PCR) (Not Detect) H. influenzae (PCR) (Not Detect) Klebsiella oxytoca PCR (Not Detect) Klebsiella pneumoniae (Not Detect) List. monocytogenes PCR (Not Detect) N. meningitidis (PCR) (Not Detect) Proteus species (PCR) (Not Detect) Serratia marcescens PCR (Not Detect) Staphylococcus sp PCR (Not Detect) Staph aureus (PCR) (Not Detect) mecA-Methicil Res Gene (Not Detect) Streptococcus sp PCR (Not Detect) Group A Strep DNA (Not Detect) Group B Strep (PCR) (Not Detect) Strep pneumoniae (PCR) (Not Detect) P. aeruginosa (PCR) (Not Detect) Brian/B-Vanco Res Genes (Not Detect) KPC (blaKPC) Detect PCR (Not Detect) 04/18/17 04/18/17 04/18/17 Range/Units 10:33 10:33 10:33 WBC 19.7 H (4.3-11.1) K/mcL RBC 4.98 H (3.82-4.97) M/mcL Hgb 14.1 (11.5-15.4) g/dL Hct 43.3 (35.3-44.9) % MCV 86.9 (83.0-100.0) fL MCH 28.3 (28.0-33.3) pg MCHC 32.6 (31.6-35.5) g/dL RDW 14.5 (11.5-14.5) % Plt Count 243 (140-400) K/mcL MPV 10.5 (9.4-12.4) fL Immature Gran % 1.0 (0-4) % Seg Neutrophils % 91.1 % Lymphocytes % 2.5 % Monocytes % 5.0 % Eosinophils % 0.1 % Basophils % 0.3 % Neutrophils # 17.9 H (1.6-8.9) K/mcL Lymphocytes # 0.5 L (0.6-4.6) K/mcL Monocytes # 1.0 (0.0-1.3) K/mcL Eosinophils # 0.0 (0.0-0.6) K/mcL Basophils # 0.1 (0.0-0.2) K/mcL PT (9.4-12.1) Seconds INR APTT (26.0-36.0) Seconds Sodium 135 L (136-145) mEq/L Potassium 4.3 (3.5-4.5) mEq/L Chloride 103 (98-109) mEq/L Carbon Dioxide 23 (19-29) mEq/L BUN 10 (7-20) mg/dL Creatinine 0.86 (0.57-1.11) mg/dL Est GFR ( Amer) > 60 (> 60) Est GFR (Non-Af Amer) > 60 (> 60) BUN/Creatinine Ratio 12 (6-26) Glucose 245 H (70-99) mg/dL POC Glucose (58-89) Calculated Osmolality 287 (280-300) Lactic Acid (0.5-2.2) mmol/L Calcium 8.9 (8.6-10.8) mg/dL Phosphorus (2.3-4.7) mg/dL Magnesium (1.6-2.6) mg/dL Total Bilirubin (0.2-1.2) mg/dL Direct Bilirubin (0.0-0.5) mg/dL Indirect Bilirubin (0.0-1.2) mg/dL AST (5-34) Units/L ALT (0-55) Units/L Alkaline Phosphatase (38-126) Units/L Troponin I 0.00 (0-0.03) ng/mL B-Natriuretic Peptide (0-100) pg/mL Serum Total Protein (6.0-8.3) g/dL Albumin (3.5-5.0) g/dL Globulin (2.4-3.5) g/dL Albumin/Globulin Ratio (1.1-2.2) Urine Color (Yellow) Urine Clarity (Clear) Urine pH (5.0-8.0) pH Units Ur Specific Carlton (1.010-1.025) Urine Protein (Neg-Trace) mg/dL Urine Glucose (UA) (Normal) mg/dL Urine Ketones (Negative) mg/dL Urine Blood (Negative) Urine Nitrite (Negative) Urine Bilirubin (Negative) Urine Urobilinogen (Normal) mg/dL Ur Leukocyte Esterase (Negative) Urine Microscopic RBC (0-3) per hpf Urine Microscopic WBC (0-3) per hpf Ur Squamous Epith Cells (None-Few) per lpf Urine Bacteria (None-Few) per hpf Hyaline Casts (None-Few) per lpf Ur Culture Indicated? (NO) A. baumannii (PCR) (Not Detect) Betty albicans (PCR) (Not Detect) C. glabrata (PCR) (Not Detect) C. krusei (PCR) (Not Detect) C. parapsilosis (PCR) (Not Detect) C. tropicalis (PCR) (Not Detect) Enterobacteriac sp PCR (Not Detect) E. cloacae complex PCR (Not Detect) Enterococcus sp PCR (Not Detect) E. coli (PCR) (Not Detect) H. influenzae (PCR) (Not Detect) Klebsiella oxytoca PCR (Not Detect) Klebsiella pneumoniae (Not Detect) List. monocytogenes PCR (Not Detect) N. meningitidis (PCR) (Not Detect) Proteus species (PCR) (Not Detect) Serratia marcescens PCR (Not Detect) Staphylococcus sp PCR (Not Detect) Staph aureus (PCR) (Not Detect) mecA-Methicil Res Gene (Not Detect) Streptococcus sp PCR (Not Detect) Group A Strep DNA (Not Detect) Group B Strep (PCR) (Not Detect) Strep pneumoniae (PCR) (Not Detect) P. aeruginosa (PCR) (Not Detect) Brian/B-Vanco Res Genes (Not Detect) KPC (blaKPC) Detect PCR (Not Detect) 04/18/17 04/18/17 04/18/17 Range/Units 10:52 11:09 11:09 WBC (4.3-11.1) K/mcL RBC (3.82-4.97) M/mcL Hgb (11.5-15.4) g/dL Hct (35.3-44.9) % MCV (83.0-100.0) fL MCH (28.0-33.3) pg MCHC (31.6-35.5) g/dL RDW (11.5-14.5) % Plt Count (140-400) K/mcL MPV (9.4-12.4) fL Immature Gran % (0-4) % Seg Neutrophils % % Lymphocytes % % Monocytes % % Eosinophils % % Basophils % % Neutrophils # (1.6-8.9) K/mcL Lymphocytes # (0.6-4.6) K/mcL Monocytes # (0.0-1.3) K/mcL Eosinophils # (0.0-0.6) K/mcL Basophils # (0.0-0.2) K/mcL PT (9.4-12.1) Seconds INR APTT (26.0-36.0) Seconds Sodium (136-145) mEq/L Potassium (3.5-4.5) mEq/L Chloride (98-109) mEq/L Carbon Dioxide (19-29) mEq/L BUN (7-20) mg/dL Creatinine (0.57-1.11) mg/dL Est GFR ( Amer) (> 60) Est GFR (Non-Af Amer) (> 60) BUN/Creatinine Ratio (6-26) Glucose (70-99) mg/dL POC Glucose (58-89) Calculated Osmolality (280-300) Lactic Acid 1.9 (0.5-2.2) mmol/L Calcium (8.6-10.8) mg/dL Phosphorus 1.3 L (2.3-4.7) mg/dL Magnesium 1.6 (1.6-2.6) mg/dL Total Bilirubin 0.5 (0.2-1.2) mg/dL Direct Bilirubin 0.4 (0.0-0.5) mg/dL Indirect Bilirubin 0.1 (0.0-1.2) mg/dL AST 11 (5-34) Units/L ALT 13 (0-55) Units/L Alkaline Phosphatase 90 (38-126) Units/L Troponin I (0-0.03) ng/mL B-Natriuretic Peptide (0-100) pg/mL Serum Total Protein 6.8 (6.0-8.3) g/dL Albumin 3.1 L (3.5-5.0) g/dL Globulin 3.7 H (2.4-3.5) g/dL Albumin/Globulin Ratio 0.8 L (1.1-2.2) Urine Color Yellow (Yellow) Urine Clarity Clear (Clear) Urine pH 6.5 (5.0-8.0) pH Units Ur Specific Carlton 1.017 (1.010-1.025) Urine Protein Trace (Neg-Trace) mg/dL Urine Glucose (UA) Normal (Normal) mg/dL Urine Ketones 15 H (Negative) mg/dL Urine Blood Negative (Negative) Urine Nitrite Negative (Negative) Urine Bilirubin Negative (Negative) Urine Urobilinogen Normal (Normal) mg/dL Ur Leukocyte Esterase Negative (Negative) Urine Microscopic RBC 0-3 (0-3) per hpf Urine Microscopic WBC 0-3 (0-3) per hpf Ur Squamous Epith Cells Many H (None-Few) per lpf Urine Bacteria None Seen (None-Few) per hpf Hyaline Casts None Seen (None-Few) per lpf Ur Culture Indicated? NO (NO) A. baumannii (PCR) (Not Detect) Betty albicans (PCR) (Not Detect) C. glabrata (PCR) (Not Detect) C. krusei (PCR) (Not Detect) C. parapsilosis (PCR) (Not Detect) C. tropicalis (PCR) (Not Detect) Enterobacteriac sp PCR (Not Detect) E. cloacae complex PCR (Not Detect) Enterococcus sp PCR (Not Detect) E. coli (PCR) (Not Detect) H. influenzae (PCR) (Not Detect) Klebsiella oxytoca PCR (Not Detect) Klebsiella pneumoniae (Not Detect) List. monocytogenes PCR (Not Detect) N. meningitidis (PCR) (Not Detect) Proteus species (PCR) (Not Detect) Serratia marcescens PCR (Not Detect) Staphylococcus sp PCR (Not Detect) Staph aureus (PCR) (Not Detect) mecA-Methicil Res Gene (Not Detect) Streptococcus sp PCR (Not Detect) Group A Strep DNA (Not Detect) Group B Strep (PCR) (Not Detect) Strep pneumoniae (PCR) (Not Detect) P. aeruginosa (PCR) (Not Detect) Biran/B-Vanco Res Genes (Not Detect) KPC (blaKPC) Detect PCR (Not Detect) 04/18/17 Range/Units 11:09 WBC (4.3-11.1) K/mcL RBC (3.82-4.97) M/mcL Hgb (11.5-15.4) g/dL Hct (35.3-44.9) % MCV (83.0-100.0) fL MCH (28.0-33.3) pg MCHC (31.6-35.5) g/dL RDW (11.5-14.5) % Plt Count (140-400) K/mcL MPV (9.4-12.4) fL Immature Gran % (0-4) % Seg Neutrophils % % Lymphocytes % % Monocytes % % Eosinophils % % Basophils % % Neutrophils # (1.6-8.9) K/mcL Lymphocytes # (0.6-4.6) K/mcL Monocytes # (0.0-1.3) K/mcL Eosinophils # (0.0-0.6) K/mcL Basophils # (0.0-0.2) K/mcL PT (9.4-12.1) Seconds INR APTT (26.0-36.0) Seconds Sodium (136-145) mEq/L Potassium (3.5-4.5) mEq/L Chloride (98-109) mEq/L Carbon Dioxide (19-29) mEq/L BUN (7-20) mg/dL Creatinine (0.57-1.11) mg/dL Est GFR ( Amer) (> 60) Est GFR (Non-Af Amer) (> 60) BUN/Creatinine Ratio (6-26) Glucose (70-99) mg/dL POC Glucose (58-89) Calculated Osmolality (280-300) Lactic Acid (0.5-2.2) mmol/L Calcium (8.6-10.8) mg/dL Phosphorus (2.3-4.7) mg/dL Magnesium (1.6-2.6) mg/dL Total Bilirubin (0.2-1.2) mg/dL Direct Bilirubin (0.0-0.5) mg/dL Indirect Bilirubin (0.0-1.2) mg/dL AST (5-34) Units/L ALT (0-55) Units/L Alkaline Phosphatase (38-126) Units/L Troponin I (0-0.03) ng/mL B-Natriuretic Peptide (0-100) pg/mL Serum Total Protein (6.0-8.3) g/dL Albumin (3.5-5.0) g/dL Globulin (2.4-3.5) g/dL Albumin/Globulin Ratio (1.1-2.2) Urine Color (Yellow) Urine Clarity (Clear) Urine pH (5.0-8.0) pH Units Ur Specific Carlton (1.010-1.025) Urine Protein (Neg-Trace) mg/dL Urine Glucose (UA) (Normal) mg/dL Urine Ketones (Negative) mg/dL Urine Blood (Negative) Urine Nitrite (Negative) Urine Bilirubin (Negative) Urine Urobilinogen (Normal) mg/dL Ur Leukocyte Esterase (Negative) Urine Microscopic RBC (0-3) per hpf Urine Microscopic WBC (0-3) per hpf Ur Squamous Epith Cells (None-Few) per lpf Urine Bacteria (None-Few) per hpf Hyaline Casts (None-Few) per lpf Ur Culture Indicated? (NO) A. baumannii (PCR) Not Detected (Not Detect) Betty albicans (PCR) Not Detected (Not Detect) C. glabrata (PCR) Not Detected (Not Detect) C. krusei (PCR) Not Detected (Not Detect) C. parapsilosis (PCR) Not Detected (Not Detect) C. tropicalis (PCR) Not Detected (Not Detect) Enterobacteriac sp PCR Not Detected (Not Detect) E. cloacae complex PCR Not Detected (Not Detect) Enterococcus sp PCR Not Detected (Not Detect) E. coli (PCR) Not Detected (Not Detect) H. influenzae (PCR) DETECTED A (Not Detect) Klebsiella oxytoca PCR Not Detected (Not Detect) Klebsiella pneumoniae Not Detected (Not Detect) List. monocytogenes PCR Not Detected (Not Detect) N. meningitidis (PCR) Not Detected (Not Detect) Proteus species (PCR) Not Detected (Not Detect) Serratia marcescens PCR Not Detected (Not Detect) Staphylococcus sp PCR Not Detected (Not Detect) Staph aureus (PCR) Not Detected (Not Detect) mecA-Methicil Res Gene Not Detected (Not Detect) Streptococcus sp PCR Not Detected (Not Detect) Group A Strep DNA Not Detected (Not Detect) Group B Strep (PCR) Not Detected (Not Detect) Strep pneumoniae (PCR) Not Detected (Not Detect) P. aeruginosa (PCR) Not Detected (Not Detect) Brian/B-Vanco Res Genes Not Detected (Not Detect) KPC (blaKPC) Detect PCR Not Detected (Not Detect) Critical Care Time Critical Care Time: Yes Total Critical Care Time: 30 Attestation: SIRS criteria, meets sepsis criteria for PNA. Empiric antibiotics initiated. Patient admitted Attestation Statement - Attestation Attestation: I examined this patient and my medical decision-making was reviewed with the Resident Physician. I agree with the documented findings, disposition and treatment plan as described except to the extent set forth below. [id number] time provided Patient presents with shortness of breath. She is visibly dyspneic on exam and is using accessory muscles to breathe. She is not oxygen dependent at baseline
[2017-04-18] MEDS ORDERED: Aspirin 81 MG TAB.CHEW PO ONE (09:58)
[2017-04-18] MEDS ORDERED: Ipratropium/Albuterol Neb 3 ML IH ONE (10:01)
[2017-04-18] MEDS ORDERED: methylPREDNISolone 125 MG/2 ML VIAL IVP ONE (10:02)
--- NOTE | 2017-04-18 10:13 | Emergency Department Note ---
Disposition Clinical Impression: Acute exacerbation of chronic obstructive airways disease, ST segment changes on electrocardiogram Pneumonia Qualifiers: Pneumonia type: due to unspecified organism Laterality: right Lung location: lower lobe of lung Qualified Code(s): J18.1 - Lobar pneumonia, unspecified organism Disposition: Admitted As Inpatient Condition: Fair Referrals: Mary Galeana MD [Primary Care Provider] - Forms: ED Satisfaction Letter Time of Disposition: 12:37 General Adult HPI - General Chief complaint: ED Shortness of Breath/Dyspnea Stated complaint: JOHN Time Seen by Provider: 04/18/17 09:48 Source: patient Limitations: no limitations Nursing Notes Reviewed: Yes Vital Signs Reviewed: Yes - History of Present Illness HPI Narrative: 76-year-old female with a previous medical history of COPD, DVT, hypertension, diabetes presents to the emergency department with shortness of breath. Patient states that she has pleuritic pain as well as chest pressure and tightness. Patient is not on nasal cannula home Pain Scale: 0 - Related Data Home Medications Medication Instructions Recorded Confirmed GlipiZIDE [Glucotrol] 20 mg PO DAILY 02/18/15 10/29/16 Pantoprazole Sodium [Protonix] 40 mg PO DAILY 02/18/15 10/29/16 Albuterol Sulfate [Ventolin Hfa] 2 puff IH Q4H PRN 10/29/16 10/29/16 Alendronate Sodium [Fosamax] 70 mg PO QWEEK 10/29/16 10/29/16 Hydroxychloroquine [Plaquenuil] 300 mg PO DAILY 10/29/16 10/29/16 Leflunomide [Arava] 20 mg PO DAILY 10/29/16 10/29/16 Metoprolol XL (24 HR) Succ [Toprol 25 mg PO DAILY 10/29/16 10/29/16 Xl] Pravastatin Sodium [Pravachol] 80 mg PO DAILY 10/29/16 10/29/16 glipiZIDE [Glucotrol] 15 mg PO QAM 04/18/17 04/18/17 Allergies Allergy/AdvReac Type Severity Reaction Status Date / Time codeine AdvReac Gastrointestinal Verified 04/18/17 09:47 Upset All systems ED: reviewed and negative except as stated. Review of Systems: As Per HPI Constitutional: Denies: fever, chills Eyes: Denies: eye pain ENT ED: Denies: ear pain Cardiovascular: Reports: chest pain, palpitations Respiratory: Reports: cough, dyspnea, wheezes Gastrointestinal: Denies: nausea, vomiting, diarrhea Musculoskeletal: Denies: back pain, neck pain Integumentary: Denies: rash Neurological: Denies: headache, weakness Past Medical History - Past Medical History Medical history: Reports: COPD, diabetes Surgical history: Reports: Psychiatric history: Reports: no psych history - Social History Smoking Status: Current every day smoker Smokeless Tobacco Status: No Alcohol use: Reports: none Drug use: Reports: none Physical Exam General: Elderly female in respiratory distress. Head: autraumatic, EOMI, no conjuncitval pallor, no scleral icterus, Mouth: oral mucous membranes moist Neck: neck soft, trachea midline Chest:: Equal chest wall rise Lungs: Diffuse wheezes throughout, respiratory distress Heart: normal heart sounds, normal rhythm Abdomen: soft, non-tender, no rigidity, no guarding, no rebdound tenderness Lower Extremities: no pedal edema, calves non-tender Integumentary: Skin warm, dry, and intact Neuro: Alert Psych: normal affect, normal mood - General Limitations: no limitations General appearance: alert, in distress Course Course Narrative: 76-year-old female presents to the emergency department with shortness of breath and chest pain. We have concern for ACS due to ST depressions on her electrocardiogram. Patient may also have a COPD exacerbation. Patient has a history of DVTs, so there is concern for a pulmonary embolus. We will be performing a CT angiogram of the chest. Patient is not on nasal cannula at home and she came to the emergency department with a O2 saturation of 86% on room air. We are providing this patient with 3 DuoNeb's, 125 mg of Solu-Medrol , and 325 mg of aspirin. Patient was febrile at 103.5, tachycardic, had a leukocytosis. This patient meets SIRS criteria. Patient was given 2.5 L of normal saline bolus via sepsis protocol. Chest x-ray revealed right lower lobe pneumonia. A CT angiogram also confirm this. There are no signs of pulmonary embolism. Patient was doing a lot better after her administration 3 DuoNeb. Patient's troponin was negative. Patient was not complaining of any chest pressure or tightness upon repeat exam. Patient was admitted to the hospitalist for right lower lobe pneumonia as well as COPD exacerbation. Patient is hemodynamically stable at time of admission. Vital Signs Temperature 98.2 F 04/18/17 09:44 Pulse Rate 105 04/18/17 09:44 Respiratory Rate 24 04/18/17 09:44 Blood Pressure 149/63 04/18/17 09:44 O2 Sat by Pulse Oximetry 86 04/18/17 09:44 Temperature 103.2 F H 04/18/17 11:02 Pulse Rate 115 04/18/17 11:02 Respiratory Rate 24 04/18/17 11:02 Blood Pressure 116/44 04/18/17 11:02 O2 Sat by Pulse Oximetry 92 04/18/17 10:14 Oxygen Delivery Oxygen Delivery Nasal Cannula Medical Decision Making - Medical Records Medical records reviewed: Yes I reviewed the patient's medical records. - Lab Data Lab results reviewed: Yes I reviewed the patient's lab results. Result diagrams: 04/18/17 10:33 04/18/17 10:33 Lab Results 04/18/17 04/18/17 04/18/17 Range/Units 10:02 10:33 10:33 WBC (4.3-11.1) K/mcL RBC (3.82-4.97) M/mcL Hgb (11.5-15.4) g/dL Hct (35.3-44.9) % MCV (83.0-100.0) fL MCH (28.0-33.3) pg MCHC (31.6-35.5) g/dL RDW (11.5-14.5) % Plt Count (140-400) K/mcL MPV (9.4-12.4) fL Immature Gran % (0-4) % Seg Neutrophils % % Lymphocytes % % Monocytes % % Eosinophils % % Basophils % % Neutrophils # (1.6-8.9) K/mcL Lymphocytes # (0.6-4.6) K/mcL Monocytes # (0.0-1.3) K/mcL Eosinophils # (0.0-0.6) K/mcL Basophils # (0.0-0.2) K/mcL PT 12.0 (9.4-12.1) Seconds INR 1.1 APTT 21.5 L (26.0-36.0) Seconds Sodium (136-145) mEq/L Potassium (3.5-4.5) mEq/L Chloride (98-109) mEq/L Carbon Dioxide (19-29) mEq/L BUN (7-20) mg/dL Creatinine (0.57-1.11) mg/dL Est GFR ( Amer) (> 60) Est GFR (Non-Af Amer) (> 60) BUN/Creatinine Ratio (6-26) Glucose (70-99) mg/dL POC Glucose 252 H (58-89) Calculated Osmolality (280-300) Lactic Acid (0.5-2.2) mmol/L Calcium (8.6-10.8) mg/dL Phosphorus (2.3-4.7) mg/dL Magnesium (1.6-2.6) mg/dL Total Bilirubin (0.2-1.2) mg/dL Direct Bilirubin (0.0-0.5) mg/dL Indirect Bilirubin (0.0-1.2) mg/dL AST (5-34) Units/L ALT (0-55) Units/L Alkaline Phosphatase (38-126) Units/L Troponin I (0-0.03) ng/mL B-Natriuretic Peptide 97 (0-100) pg/mL Serum Total Protein (6.0-8.3) g/dL Albumin (3.5-5.0) g/dL Globulin (2.4-3.5) g/dL Albumin/Globulin Ratio (1.1-2.2) Urine Color (Yellow) Urine Clarity (Clear) Urine pH (5.0-8.0) pH Units Ur Specific Lane (1.010-1.025) Urine Protein (Neg-Trace) mg/dL Urine Glucose (UA) (Normal) mg/dL Urine Ketones (Negative) mg/dL Urine Blood (Negative) Urine Nitrite (Negative) Urine Bilirubin (Negative) Urine Urobilinogen (Normal) mg/dL Ur Leukocyte Esterase (Negative) Urine Microscopic RBC (0-3) per hpf Urine Microscopic WBC (0-3) per hpf Ur Squamous Epith Cells (None-Few) per lpf Urine Bacteria (None-Few) per hpf Hyaline Casts (None-Few) per lpf Ur Culture Indicated? (NO) 04/18/17 04/18/17 04/18/17 Range/Units 10:33 10:33 10:33 WBC 19.7 H (4.3-11.1) K/mcL RBC 4.98 H (3.82-4.97) M/mcL Hgb 14.1 (11.5-15.4) g/dL Hct 43.3 (35.3-44.9) % MCV 86.9 (83.0-100.0) fL MCH 28.3 (28.0-33.3) pg MCHC 32.6 (31.6-35.5) g/dL RDW 14.5 (11.5-14.5) % Plt Count 243 (140-400) K/mcL MPV 10.5 (9.4-12.4) fL Immature Gran % 1.0 (0-4) % Seg Neutrophils % 91.1 % Lymphocytes % 2.5 % Monocytes % 5.0 % Eosinophils % 0.1 % Basophils % 0.3 % Neutrophils # 17.9 H (1.6-8.9) K/mcL Lymphocytes # 0.5 L (0.6-4.6) K/mcL Monocytes # 1.0 (0.0-1.3) K/mcL Eosinophils # 0.0 (0.0-0.6) K/mcL Basophils # 0.1 (0.0-0.2) K/mcL PT (9.4-12.1) Seconds INR APTT (26.0-36.0) Seconds Sodium 135 L (136-145) mEq/L Potassium 4.3 (3.5-4.5) mEq/L Chloride 103 (98-109) mEq/L Carbon Dioxide 23 (19-29) mEq/L BUN 10 (7-20) mg/dL Creatinine 0.86 (0.57-1.11) mg/dL Est GFR ( Amer) > 60 (> 60) Est GFR (Non-Af Amer) > 60 (> 60) BUN/Creatinine Ratio 12 (6-26) Glucose 245 H (70-99) mg/dL POC Glucose (58-89) Calculated Osmolality 287 (280-300) Lactic Acid (0.5-2.2) mmol/L Calcium 8.9 (8.6-10.8) mg/dL Phosphorus (2.3-4.7) mg/dL Magnesium (1.6-2.6) mg/dL Total Bilirubin (0.2-1.2) mg/dL Direct Bilirubin (0.0-0.5) mg/dL Indirect Bilirubin (0.0-1.2) mg/dL AST (5-34) Units/L ALT (0-55) Units/L Alkaline Phosphatase (38-126) Units/L Troponin I 0.00 (0-0.03) ng/mL B-Natriuretic Peptide (0-100) pg/mL Serum Total Protein (6.0-8.3) g/dL Albumin (3.5-5.0) g/dL Globulin (2.4-3.5) g/dL Albumin/Globulin Ratio (1.1-2.2) Urine Color (Yellow) Urine Clarity (Clear) Urine pH (5.0-8.0) pH Units Ur Specific Lane (1.010-1.025) Urine Protein (Neg-Trace) mg/dL Urine Glucose (UA) (Normal) mg/dL Urine Ketones (Negative) mg/dL Urine Blood (Negative) Urine Nitrite (Negative) Urine Bilirubin (Negative) Urine Urobilinogen (Normal) mg/dL Ur Leukocyte Esterase (Negative) Urine Microscopic RBC (0-3) per hpf Urine Microscopic WBC (0-3) per hpf Ur Squamous Epith Cells (None-Few) per lpf Urine Bacteria (None-Few) per hpf Hyaline Casts (None-Few) per lpf Ur Culture Indicated? (NO) 04/18/17 04/18/17 04/18/17 Range/Units 10:52 11:09 11:09 WBC (4.3-11.1) K/mcL RBC (3.82-4.97) M/mcL Hgb (11.5-15.4) g/dL Hct (35.3-44.9) % MCV (83.0-100.0) fL MCH (28.0-33.3) pg MCHC (31.6-35.5) g/dL RDW (11.5-14.5) % Plt Count (140-400) K/mcL MPV (9.4-12.4) fL Immature Gran % (0-4) % Seg Neutrophils % % Lymphocytes % % Monocytes % % Eosinophils % % Basophils % % Neutrophils # (1.6-8.9) K/mcL Lymphocytes # (0.6-4.6) K/mcL Monocytes # (0.0-1.3) K/mcL Eosinophils # (0.0-0.6) K/mcL Basophils # (0.0-0.2) K/mcL PT (9.4-12.1) Seconds INR APTT (26.0-36.0) Seconds Sodium (136-145) mEq/L Potassium (3.5-4.5) mEq/L Chloride (98-109) mEq/L Carbon Dioxide (19-29) mEq/L BUN (7-20) mg/dL Creatinine (0.57-1.11) mg/dL Est GFR ( Amer) (> 60) Est GFR (Non-Af Amer) (> 60) BUN/Creatinine Ratio (6-26) Glucose (70-99) mg/dL POC Glucose (58-89) Calculated Osmolality (280-300) Lactic Acid 1.9 (0.5-2.2) mmol/L Calcium (8.6-10.8) mg/dL Phosphorus 1.3 L (2.3-4.7) mg/dL Magnesium 1.6 (1.6-2.6) mg/dL Total Bilirubin 0.5 (0.2-1.2) mg/dL Direct Bilirubin 0.4 (0.0-0.5) mg/dL Indirect Bilirubin 0.1 (0.0-1.2) mg/dL AST 11 (5-34) Units/L ALT 13 (0-55) Units/L Alkaline Phosphatase 90 (38-126) Units/L Troponin I (0-0.03) ng/mL B-Natriuretic Peptide (0-100) pg/mL Serum Total Protein 6.8 (6.0-8.3) g/dL Albumin 3.1 L (3.5-5.0) g/dL Globulin 3.7 H (2.4-3.5) g/dL Albumin/Globulin Ratio 0.8 L (1.1-2.2) Urine Color Yellow (Yellow) Urine Clarity Clear (Clear) Urine pH 6.5 (5.0-8.0) pH Units Ur Specific Lane 1.017 (1.010-1.025) Urine Protein Trace (Neg-Trace) mg/dL Urine Glucose (UA) Normal (Normal) mg/dL Urine Ketones 15 H (Negative) mg/dL Urine Blood Negative (Negative) Urine Nitrite Negative (Negative) Urine Bilirubin Negative (Negative) Urine Urobilinogen Normal (Normal) mg/dL Ur Leukocyte Esterase Negative (Negative) Urine Microscopic RBC 0-3 (0-3) per hpf Urine Microscopic WBC 0-3 (0-3) per hpf Ur Squamous Epith Cells Many H (None-Few) per lpf Urine Bacteria None Seen (None-Few) per hpf Hyaline Casts None Seen (None-Few) per lpf Ur Culture Indicated? NO (NO) - EKG Data EKG #1 EKG attestation: Yes I reviewed and interpreted this EKG. EKG results narrative: 9:53 Ventricular rate 107 bpm, TN interval 156 ms, QRS duration 79 ms, QT 287 ms, QTC 350 ms, normal axis. Sinus tachycardia with a ventricular rate of 107 bpm. There is half a millimeter of ST depression in the inferior lead two and aVF. There is evidence of [address] segment in V4, V5, V6 that is new in comparison with an electrocardiogram performed on 10/29/2016
[2017-04-18] MEDS ORDERED: 0.9 % Sodium Chloride 1,000 ML IVC ONE ×2 (10:42→10:46)
[2017-04-18 10:46] LABS: Basophils # 0.1 K/mcL (0.0-0.2); Basophils % 0.3 %; Eosinophils % 0.1 %; Hematocrit 43.3 % (35.3-44.9); Hemoglobin 14.1 g/dL (11.5-15.4); INR 1.1; Lymphocytes # 0.5 K/mcL (0.6-4.6); Lymphocytes % 2.5 %; Mean Corpuscular HGB Conc 32.6 g/dL (31.6-35.5); Mean Corpuscular Hemoglobin 28.3 pg (28.0-33.3); Mean Corpuscular Volume 86.9 fL (83.0-100.0); Mean Platelet Volume 10.5 fL (9.4-12.4); Neutrophils # 17.9 K/mcL (1.6-8.9); Platelet Count 243 K/mcL (140-400); Red Blood Count 4.98 M/mcL (3.82-4.97); Red Cell Distribution Width 14.5 % (11.5-14.5); Segmented Neutrophils % 91.1 %
[2017-04-18 10:48] LABS: Activated Partial Thrombo Time 21.5 Seconds (26.0-36.0)
[2017-04-18 10:58] LABS: BUN/Creatinine Ratio 12 (6-26); Blood Urea Nitrogen 10 mg/dL (7-20); Calcium 8.9 mg/dL (8.6-10.8); Carbon Dioxide 23 mEq/L (19-29); Chloride 103 mEq/L (98-109); Glucose 245 mg/dL (70-99); Osmolality,Calculated 287 (280-300); Potassium 4.3 mEq/L (3.5-4.5); Sodium 135 mEq/L (136-145); eGFR For African Americans > 60 (> 60); eGFR For Non-African Americans > 60 (> 60)
[2017-04-18] MEDS ORDERED: Levofloxacin 750 MG/150 ML 750 MG/150 ML BAG IVPB SCH (11:00)
[2017-04-18 11:08] LABS: Bilirubin,Urine Negative (Negative); Blood,Urine Negative (Negative); Clarity,Urine Clear (Clear); Color,Urine Yellow (Yellow); Glucose,Urine (UA) Normal (Normal); Ketones,Urine 15 mg/dL (Negative); Leukocyte Esterase,Urine Negative (Negative); Nitrite,Urine Negative (Negative); PH,Urine 6.5 pH Units (5.0-8.0); Protein,Urine Trace mg/dL (Neg-Trace); Specific Gravity,Urine 1.017 (1.010-1.025); Urobilinogen,Urine Normal (Normal)
[2017-04-18 11:10] LABS: Bacteria,Urine None Seen per hpf (None-Few); Hyaline Casts,Urine None Seen per lpf (None-Few); RBC,Urine 0-3 per hpf (0-3); Squamous Epithelial Cell,Urine Many per lpf (None-Few); WBC,Urine 0-3 per hpf (0-3)
[2017-04-18 11:33] LABS: Albumin 3.1 g/dL (3.5-5.0); Albumin/Globulin Ratio 0.8 (1.1-2.2); Bilirubin,Direct 0.4 mg/dL (0.0-0.5); Bilirubin,Indirect 0.1 mg/dL (0.0-1.2); Bilirubin,Total 0.5 mg/dL (0.2-1.2); Globulin 3.7 g/dL (2.4-3.5); Magnesium 1.6 mg/dL (1.6-2.6); Phosphorous 1.3 mg/dL (2.3-4.7); Total Protein 6.8 g/dL (6.0-8.3)
[2017-04-18] MEDS ORDERED: Levofloxacin 750 MG/150 ML 750 MG/150 ML BAG IVPB ONE (11:56)
[2017-04-18] MEDS ORDERED: 0.9 % Sodium Chloride 500 ML IVC ONE (12:08)
[2017-04-18] MEDS ORDERED: Ondansetron 4 MG/2 ML VIAL IVP PRN (13:22)
[2017-04-18] MEDS ORDERED: Naloxone 0.4 MG/ML INJ IVP PRN (13:22)
[2017-04-18] MEDS ORDERED: Acetaminophen 325 MG TABLET PO PRN (13:22)
[2017-04-18] MEDS ORDERED: Benzonatate 100 MG CAPSULE PO PRN (13:30)
[2017-04-18] MEDS ORDERED: Dextrose Gel 15 GM PO PRN ×2 (13:34)
[2017-04-18] MEDS ORDERED: D5% in Water 1,000 ML IVC PRN (13:34)
[2017-04-18] MEDS ORDERED: *HR* Dextrose 50 % in Water (Syg) 50 ML SYRINGE IVP PRN (13:34)
[2017-04-18] MEDS: 0.9 % Sodium Chloride 1,000 ML IVC SCH (13:54)
--- NOTE | 2017-04-18 13:54 | Internal Med History&Physical ---
<Bo Gunter - Last Filed: 04/18/17 17:22> Date of Encounter: 04/18/17 Internal Medicine - H&P: HPI History of present illness: Ms. Barber is a 76 year old female Internal Medicine - H&P: Meds GlipiZIDE [Glucotrol] 10 mg PO QPM 02/18/15 [History] Pantoprazole Sodium [Protonix] 40 mg PO DAILY 02/18/15 [History] Albuterol Sulfate [Ventolin Hfa] 2 puff IH Q4H PRN 10/29/16 [History] Alendronate Sodium [Fosamax] 70 mg PO QWEEK 10/29/16 [History] Hydroxychloroquine [Plaquenuil] 300 mg PO DAILY 10/29/16 [History] Leflunomide [Arava] 20 mg PO DAILY 10/29/16 [History] Metoprolol XL (24 HR) Succ [Toprol Xl] 25 mg PO DAILY 10/29/16 [History] Pravastatin Sodium [Pravachol] 80 mg PO DAILY 10/29/16 [History] glipiZIDE [Glucotrol] 15 mg PO QAM 04/18/17 [History] 3 Allergy/AdvReac Type Severity Reaction Status Date / Time codeine AdvReac Gastrointestinal Verified 04/18/17 09:47 Upset All Systems PM: A 10-system review of systems was performed and is negative for pertinent findings except as documented above in the HPI. - Constitutional Vitals: Temp Pulse Resp BP Pulse Ox 98.4 F 94 20 97/50 93 04/18/17 16:31 04/18/17 16:31 04/18/17 16:31 04/18/17 16:31 04/18/17 16:31 Internal Med - H&P Results - Labs CBC & Chem 7: 04/18/17 10:33 04/18/17 10:33 Labs: Cardiac Enzymes 04/18/17 Range/Units 16:04 Troponin I 0.00 (0-0.03) ng/mL - Attending Attestation I independently obtained history and examined this patient and my medical decision-making was reviewed with the nurse practitioner. I agree with the documented findings, disposition and treatment plan as described. My findings are summarized below: Patient presented to the hospital with shortness of breath. She also reported right-sided chest pain worse with cough and deep inspiration. Chest pain has resolved after she received inhaled bronchodilators. On exam she has expiratory wheezing and bilateral crackles. Plan: IV Levaquin for pneumonia. Sputum culture and Legionella antigen. Check urine pneumococcal antigen. Increase Solu-Medrol to 60 mg every 6 hours. I discussed smoking cessation with the patient. Bo Gunter MD <Raudel Harris - Last Filed: 04/19/17 10:12> Date of Encounter: 04/19/17 Time of Encounter: 12:00 Assessment and Plan (1) SIRS (systemic inflammatory response syndrome) Current visit: Yes Status: Acute Patient presents with SIRS criteria related to current pneumonia dx. WBC 19.7, temperature 103.2 F, heart rate 1:15 bpm, respiratory rate 24. BP on admission 116/44. Patient received 30 mL/kg IV fluids with follow-up of 125 mL/HR. Blood cultures x2 ordered. IVPB levaquin administered in the ED and will be continued for infection coverage. Initial lactic acid 1.9. Will repeat lactic. Patient placed on supplemental O2 with titration and SpO2 monitoring. Patient placed on continuous cardiac telemetry for tachycardia. Follow-up labs ordered. Will monitor patient for signs of increased infection, cardiac, and/or respiratory distress. (2) Pneumonia Current visit: Yes Status: Acute Patient is is shortness of breath, dyspnea, and cough 2 days. Patient reports cough producing white to perea sputum. Patient denies recent illness or recent hospitalization. 1-View CXR today shows infiltrates in the right midlung zone concerning for pneumonia. Follow-up radiographs are recommended to ensure resolution as malignancy cannot be excluded. Previous concern was for PE, however CT a of the chest today shows right lower lobe consolidation involving the superior segment compatible with pneumonia. Radiographic or CT follow-up is suggested in 2-3 months to confirm resolution. IVPB levaquin 750 mg daily administered in the ED and will be continued for infection coverage. Follow-up labs ordered to monitor infection status. Supplemental O2 with SpO2 monitoring, DuoNeb Q4 scheduled, Tessalon 100 mg TID for cough. Blood cultures x2. Sputum culture. Qualifiers: Pneumonia type: due to unspecified organism Laterality: right Lung location: lower lobe of lung Qualified Code(s): J18.1 - Lobar pneumonia, unspecified organism (3) Chest pain, rule out acute myocardial infarction Current visit: Yes Status: Acute Patient is with acute chest pain is most likely pleuritic pain as she describes it under her right breast and worse with inspiration. Patient denies any previous cardiac history. Initial troponin 0.00. Will trend 2. Patient placed on continuous cardiac telemetry. Will monitor patient closely. (4) Hyponatremia Current visit: Yes Status: Acute Patient presents with acute hyponatremia with sodium of 135 on admission. Patient receiving IV fluids per SIRS criteria which should resolve hyponatremia. Monitor follow-up labs for sodium status. (5) COPD (chronic obstructive pulmonary disease) Current visit: Yes Status: Chronic Hx of chronic COPD. Patient denies use of home oxygen, BiPAP, CPAP, breathing treatments. Patient reports she is a former smoker smoking one half pack per day and quitting 2 weeks ago. Supplemental O2 with titration at SPO2 monitoring. Solu-Medrol 40 mg every 12 ordered. Qualifiers: COPD type: unspecified COPD Qualified Code(s): J44.9 - Chronic obstructive pulmonary disease, unspecified (6) Diabetes mellitus Current visit: No Status: Chronic Hx of chronic diabetes controlled with oral antihyperglycemic medication. BG on admission is 245. Will hold patient's glipizide and administer low-dose correction insulin sliding scale with hypoglycemic protocol. BG checks ACHS. A1c ordered in a.m. labs. Qualifiers: Diabetes mellitus type: type 2 Diabetes mellitus complication status: with hyperglycemia Diabetes mellitus fci insulin use: without fci use Qualified Code(s): E11.65 - Type 2 diabetes mellitus with hyperglycemia (7) DVT prophylaxis Current visit: Yes Status: Acute Heparin 5,000 units SQ every 8 for DVT prophylaxis. Internal Medicine - H&P: HPI Chief complaint: SOB/Dyspnea Admitted From: Emergency Dept Plans for Post Hospital Care: Home History of present illness: Ms. Barber is a 76 year old female medical history of COPD and diabetes controlled with oral anti-hyperglycemic medications percents from the ED with chief complaint of shortness of breath, dyspnea, cough, and fever for the past 2 days. Patient reports chest pressure and tightness with pleuritic pain located under the right breast with inspiration. Patient also reports heart palpitations. Patient is a former smoker, smoking one half pack per day and reporting that she quit 2 weeks ago. Patient denies use of home oxygen and breathing treatments. Patient denies recent illness, chills, nausea, vomiting, changes in vision, diarrhea, constipation, headache, weakness, lightheadedness, presyncope, or syncope. Patient currently meets SIRS criteria based on leukocytosis of 19.7, temperature 103.2 F, heart rate of 1:15 bpm, and respiratory rate of 24. Past Med Surg Social Fam HX - Past Medical History Source: patient, old records reviewed Medical history: COPD, diabetes Psychiatric history: no psych history - Past Surgical History Surgical History: (x4), orthopedic, other (Left hip replacement), other (Tonsillectomy) - Social History Smoking Status: Former smoker Packs per day: /2 PPD - Reports quitting 2 weeks ago Smokeless Tobacco Status: No Alcohol use: none Drug use: none Current living situation: Home Activity Level: Independent ambulation Recent Out of Country Travel Within the Last 8 Weeks: No Exposure or Possible Exposure to Illness During Travel: No All Systems PM: A 10-system review of systems was performed and is negative for pertinent findings except as documented above in the HPI. - Constitutional Constitutional: as per HPI, fever(s) (103.2F on admission), no chills, no night sweats - EENT Eyes: no change in vision, no discharge, no pain, no photophobia Ears: no ear discharge, no ear pain, no tinnitus Nose, mouth and throat: no dysphagia, no nasal discharge, no neck pain, no sore throat - Breasts Breasts: as per HPI - Cardiovascular Cardiovascular ROS IM: as per HPI, chest pain, dyspnea, dyspnea on exertion, palpitations - Respiratory Respiratory: as per HPI, cough, dyspnea, dyspnea on exertion, wheezing - Gastrointestinal Gastrointestinal: no abdominal pain, no diarrhea, no hematemesis, no hematochezia, no melena, no nausea, no vomiting - Genitourinary Genitourinary: no change in urinary stream, no dysuria, no flank pain, no hematuria Menstruation: as per HPI - Musculoskeletal Musculoskeletal ROS IM: no numbness, no tingling - Integumentary Integumentary IM: no rash, no unusual bruising - Neurological Neurological ROS: no confusion, no convulsions, no focal weakness, no numbness, no tingling, no tremor(s) - Psychiatric Psychiatric: as per HPI - Endocrine Endocrine IM: as per HPI - Hematologic/Lymphatic Hematologic/Lymphatic: no easy bruising - Allergic/Immunologic Allergic/Immunologic: as per HPI - Constitutional Vitals: Temp Pulse Resp BP Pulse Ox 101.2 F H 105 20 97/56 92 04/18/17 13:30 04/18/17 12:23 04/18/17 13:30 04/18/17 13:30 04/18/17 12:23 General appearance: Present: cooperative, mild distress, A&O X 3, pleasant, obese, answers questions appropriately - Head Head exam: Present: atraumatic, normocephalic - Eye Eye exam: Present: PERRL, conjuntiva pink, sclera anicteric Pupils: Present: PERRL - ENT ENT exam: Present: normal exam, normal external ear exam - Neck Neck exam general surgery: Present: normal inspection, supple, trachea midline. Absent: lymphadenopathy - Respiratory Respiratory exam: Present: accessory muscle use, wheezes (Inspiratory and expiratory wheezes bilaterally) - Cardiovascular Cardiovascular exam: Present: tachycardia - GI/Abdominal GI/Abdominal exam: Present: normal bowel sounds, soft, no peritoneal signs. Absent: distended, tenderness - Rectal Rectal exam: Present: deferred - Additional comments: exam deferred. - Extremities Exam Extremities exam: Present: pedal edema (Mild, non-pitting edema bilaterally that patient reports is chronic), warm, radial pulses palpable and symmetrical - Back Exam Back exam: Present: normal inspection - Neurological Exam Neurological exam: Present: alert, CN II-XII intact, oriented X3, no focal deficits. Absent: pronater drift, facial droop, speech deficit - Psychiatric Psychiatric exam: Present: normal affect, normal mood - Skin Skin exam: Present: dry, intact Internal Med - H&P Results - Labs CBC & Chem 7: 04/19/17 03:38 04/19/17 03:38 - EKG Data EKG shows normal: sinus rhythm Rate: tachycardia - EKG Data Prior EKG available for review: yes Interpretation IM: suggestive of ischemia EKG comments: 04/18/17 14:04 EKG dated 10/29/16 shows sinus rhythm and nonspecific T-wave abnormality.'EKG dated 04/18/[address] deviation and moderate T-wave abnormality, consider lateral ischemia. - Diagnostic Studies Chest x-ray Additional comments: Impressions Chest X-Ray 04/18/17 09:59 IMPRESSION: 1. Infiltrate in the right mid lung zone, concerning for pneumonia. Follow-up radiographs are recommended to ensure resolution as malignancy cannot be excluded. D/ / 04/18/2017 10:24:15 Alfredo Chavez MD / sheela Interpreting Provider: Alfredo Chavez MD Other Images Additional comments: Impressions Chest CTA 04/18/17 10:01 IMPRESSION: Right lower lobe consolidation involving the superior segment compatible with pneumonia. Radiographic or CT follow-up is suggested in 2-3 months to confirm resolution. D/ / 04/18/2017 11:57:50 Jatinder Nelson MD / sierra Interpreting Provider: Jatinder Nelson MD
[2017-04-18] MEDS: Pantoprazole 40 MG VIAL IVP SCH (13:58)
[2017-04-18] MEDS: Ipratropium/Albuterol Neb 3 ML IH SCH ×3 (16:09→23:55)
[2017-04-18] MEDS: Insulin LISPRO 300 UNITS/3 ML VIAL SQ SCH ×2 (16:59→21:04)
[2017-04-18] MEDS: *HR* Heparin 5,000 UNIT/ML VIAL SQ SCH (17:00)
[2017-04-18] MEDS ORDERED: MethylPREDNISolone 40 MG/ML VIAL IVP SCH (18:00)
[2017-04-18] MEDS: methylPREDNISolone 125 MG/2 ML VIAL IVP SCH (18:26)
[2017-04-19] MEDS: *HR* Heparin 5,000 UNIT/ML VIAL SQ SCH ×4 (00:01→23:44)
[2017-04-19] MEDS: methylPREDNISolone 125 MG/2 ML VIAL IVP SCH ×4 (00:02→17:01)
[2017-04-19] MEDS: 0.9 % Sodium Chloride 1,000 ML IVC SCH ×2 (00:10→07:31)
[2017-04-19 04:11] LABS: Basophils % 0.1 %; Hematocrit 32.8 % (35.3-44.9); Immature Granulocytes % 0.9 % (0-4); Lymphocytes # 0.8 K/mcL (0.6-4.6); Lymphocytes % 3.7 %; Mean Corpuscular Hemoglobin 27.8 pg (28.0-33.3); Mean Corpuscular Volume 86.8 fL (83.0-100.0); Mean Platelet Volume 10.5 fL (9.4-12.4); Monocytes # 0.8 K/mcL (0.0-1.3); Monocytes % 3.9 %; Platelet Count 222 K/mcL (140-400); Red Blood Count 3.78 M/mcL (3.82-4.97); Red Cell Distribution Width 14.6 % (11.5-14.5); Segmented Neutrophils % 91.4 %
[2017-04-19 04:12] LABS: Hemoglobin 10.5 g/dL (11.5-15.4)
[2017-04-19] MEDS: Ipratropium/Albuterol Neb 3 ML IH SCH ×6 (04:29→23:03)
[2017-04-19 04:32] LABS: Alanine Aminotransferase 8 Units/L (0-55); Albumin/Globulin Ratio 0.7 (1.1-2.2); Alkaline Phosphatase 60 Units/L (38-126); Aspartate Amino Transferase 12 Units/L (5-34); BUN/Creatinine Ratio 20 (6-26); Bilirubin,Total 0.3 mg/dL (0.2-1.2); Blood Urea Nitrogen 17 mg/dL (7-20); Carbon Dioxide 18 mEq/L (19-29); Chloride 111 mEq/L (98-109); Cholesterol 127 mg/dL (< 200); Globulin 3.2 g/dL (2.4-3.5); Glucose 338 mg/dL (70-99); Magnesium 1.4 mg/dL (1.6-2.6); Osmolality,Calculated 299 (280-300); Potassium 3.9 mEq/L (3.5-4.5); Sodium 137 mEq/L (136-145); Total Protein 5.5 g/dL (6.0-8.3); Triglycerides 50 mg/dL (< 150); eGFR For African Americans > 60 (> 60); eGFR For Non-African Americans > 60 (> 60)
[2017-04-19 04:34] LABS: Albumin 2.3 g/dL (3.5-5.0); Calcium 7.2 mg/dL (8.6-10.8); INR 1.4; Prothrombin Time 15.1 Seconds (9.4-12.1)
[2017-04-19 04:51] LABS: Chol/HDL Ratio 2.8 (0-4.9); HDL Cholesterol 46 mg/dL (40-59); LDL Cholesterol,Calculated 71 mg/dL (0-99)
[2017-04-19] MEDS ORDERED: (Alendronate Sodium [Fosamax] 70 MG) PO SCH (07:00)
[2017-04-19] MEDS: Pantoprazole 40 MG VIAL IVP SCH (07:31)
[2017-04-19] MEDS: Metoprolol XL (24 HR) Succ 25 MG TAB.ER.24H PO SCH (08:48)
[2017-04-19] MEDS: Insulin LISPRO 300 UNITS/3 ML VIAL SQ SCH ×5 (08:50→20:37)
[2017-04-19] MEDS: (Leflunomide [Arava] 20 MG) PO SCH (08:51)
[2017-04-19 09:18] LABS: Acinetobacter baumannii by PCR Not Detected (Not Detect); Candida albicans by PCR Not Detected (Not Detect); Candida glabrata by PCR Not Detected (Not Detect); Candida krusei by PCR Not Detected (Not Detect); Candida parapsilosis by PCR Not Detected (Not Detect); Candida tropicalis by PCR Not Detected (Not Detect); Enterococcus by PCR Not Detected (Not Detect); Escherichia coli by PCR Not Detected (Not Detect); Klebsiella oxytoca by PCR Not Detected (Not Detect); Klebsiella pneumoniae by PCR Not Detected (Not Detect); Pseudomonas aeruginosa by PCR Not Detected (Not Detect); Serratia marcescens by PCR Not Detected (Not Detect); Staphylococcus aureus by PCR Not Detected (Not Detect); Streptococcus agalactiae(B)PCR Not Detected (Not Detect); Streptococcus by PCR Not Detected (Not Detect); Streptococcus pneumoniae PCR Not Detected (Not Detect); Streptococcus pyogenes (A) PCR Not Detected (Not Detect); blaKPC Carbapenem-Resist Gene Not Detected (Not Detect); mecA Methicillin-Resist Gene Not Detected (Not Detect); vanA/B Vancomycin-Resist Genes Not Detected (Not Detect)
--- NOTE | 2017-04-19 10:22 | Internal Med Progress Note ---
Date of Encounter: 04/19/17 Time of Encounter: 10:21 - Assessment and plan (1) Sepsis Current Visit: Yes Status: Acute Assessment and plan: patient presented with pleuritic chest pain, cough, SOB, WBC 19.7, temperature 103.2 F, heart rate 1:15 bpm, respiratory rate 24. BP on admission 116/44 CXR showed RLL pneumonia Blood culture with H.influenza Received levaquin on admission Started on 2g Ceftriaxone daily today Add Azithromycin for atypicals Blood culture 04/18 growing H.infleunzae-follow final reports Repeat blood culture a.m Leukocytosis picture may be impacted by high dose steroids, will continue to monitor BP is acceptable, hold IVF for now High risk condition, Qualifiers: Sepsis type: Haemophilus influenzae Qualified Code(s): A41.3 - Sepsis due to Hemophilus influenzae (2) Bacteremia Current Visit: Yes Status: Acute Assessment and plan: As above (3) Essential hypertension Current Visit: Yes Status: Chronic Assessment and plan: Continue current meds (4) Diabetes mellitus Current Visit: Yes Status: Chronic Assessment and plan: Uncontrolled , with hyperglycemia, exacerbated by steroids A1C 8.0 Increase basal insulin, add prandial and low dose coverage FS ACHS ADA diet Qualifiers: Diabetes mellitus type: type 2 Diabetes mellitus complication status: with hyperglycemia Diabetes mellitus intermediate card tender insulin use: without intermediate card tender use Qualified Code(s): E11.65 - Type 2 diabetes mellitus with hyperglycemia (5) Pneumonia Current Visit: Yes Status: Acute Assessment and plan: As in sepsis Qualifiers: Pneumonia type: due to Haemophilus influenzae Laterality: right Lung location: lower lobe of lung Qualified Code(s): J14 - Pneumonia due to Hemophilus influenzae (6) Acute exacerbation of chronic obstructive airways disease Current Visit: Yes Status: Acute Assessment and plan: Continue duonebs, solumedrol Change solumedrol to prednisone po am (7) Hypomagnesemia Current Visit: Yes Status: Acute Assessment and plan: Mag replaced, continue to monitor - Subjective Interval history: Seen and evaluated at bedside patient with sepsis secondary to RLL pneumonia, H. influenza bacteremia, Pleuritic chest pain secondary to PNA and COPDE She is seen at bedside, diffusely wheezing Blood culture growing H. influenza-change a/b to drug of choice-bacteremia/ sepsis dose - Constitutional Vitals: Temp Pulse Resp BP Pulse Ox 96.8 F L 90 18 105/54 99 04/19/17 08:02 04/19/17 08:02 04/19/17 08:02 04/19/17 08:02 04/19/17 08:02 General appearance: Present: cooperative, A&O X 3, pleasant, no acute distress, obese, answers questions appropriately - Head Head exam: Present: atraumatic, normocephalic - Eye Eye exam: Present: PERRL, conjuntiva pink, sclera anicteric Pupils: Present: PERRL - Neck Neck exam general surgery: Present: supple, trachea midline. Absent: lymphadenopathy - Respiratory Respiratory exam: Present: rhonchi, wheezes. Absent: accessory muscle use, rales - Cardiovascular Cardiovascular exam: Present: RRR, +S1, +S2. Absent: diastolic murmur, gallop, rubs, systolic murmur - GI/Abdominal GI/Abdominal exam: Present: normal bowel sounds, soft, no peritoneal signs. Absent: distended, tenderness - Extremities Exam Extremities exam: Present: warm, radial pulses palpable and symmetrical. Absent : calf tenderness, cyanotic, pedal edema - Neurological Exam Neurological exam: Present: alert, CN II-XII intact, oriented X3, no focal deficits. Absent: pronater drift, facial droop, speech deficit - Skin Skin exam: Present: dry, intact Internal Medicine: Result - Labs CBC & Chem 7: 04/19/17 03:38 04/19/17 03:38 Labs: Short CBC 04/19/17 Range/Units 03:38 WBC 20.8 H (4.3-11.1) K/mcL Hgb 10.5 L D (11.5-15.4) g/dL Hct 32.8 L (35.3-44.9) % Plt Count 222 (140-400) K/mcL Neutrophils # 19.0 H (1.6-8.9) K/mcL BMP 04/19/17 03:38 Sodium 137 Potassium 3.9 Chloride 111 H Carbon Dioxide 18 L BUN 17 Creatinine 0.86 Glucose 338 H Calcium 7.2 L D Cardiac Enzymes 04/18/17 04/18/17 Range/Units 16:04 22:37 Troponin I 0.00 0.00 (0-0.03) ng/mL Liver Function 04/19/17 Range/Units 03:38 Total Bilirubin 0.3 (0.2-1.2) mg/dL AST 12 (5-34) Units/L ALT 8 (0-55) Units/L Alkaline Phosphatase 60 (38-126) Units/L Albumin 2.3 L D (3.5-5.0) g/dL - ABG Interpretation ABG results: PT/INR, D-dimer PT 15.1 Seconds (9.4-12.1) H 04/19/17 03:38 D-Dimer 1048 ng/mLFEU (0-500) H 04/18/17 17:46 Consult Discharge Plan - Plan Referrals: Yadira Morse, MAXILLOFACIAL PROSTHETICS DENTIST [Advanced Practice Nurse] - 04/25/17 2:00 pm
[2017-04-19] MEDS ORDERED: Ipratropium/Albuterol Neb 3 ML IH ONE (10:33)
[2017-04-19] MEDS: Azithromycin 500 MG in D5% in Water 250 ML IVPB SCH (11:49)
[2017-04-19] MEDS ORDERED: Magnesium Sulfate 2 GM in D5% in Water 100 ML IVPB ONE (15:00)
[2017-04-19] MEDS ORDERED: Insulin DETEMIR 100 UNIT/ML X5UNITS SQ SCH (21:00)
[2017-04-20] MEDS: Ipratropium/Albuterol Neb 3 ML IH SCH ×5 (04:12→20:58)
[2017-04-20 04:13] LABS: Basophils % 0.1 %; Hematocrit 31.6 % (35.3-44.9); Hemoglobin 10.2 g/dL (11.5-15.4); Lymphocytes # 0.8 K/mcL (0.6-4.6); Lymphocytes % 4.9 %; Mean Corpuscular HGB Conc 32.3 g/dL (31.6-35.5); Mean Corpuscular Hemoglobin 27.3 pg (28.0-33.3); Mean Corpuscular Volume 84.7 fL (83.0-100.0); Mean Platelet Volume 10.9 fL (9.4-12.4); Monocytes # 0.7 K/mcL (0.0-1.3); Monocytes % 4.1 %; Neutrophils # 15.5 K/mcL (1.6-8.9); Platelet Count 261 K/mcL (140-400); Red Blood Count 3.73 M/mcL (3.82-4.97); Red Cell Distribution Width 14.8 % (11.5-14.5); Segmented Neutrophils % 89.9 %
[2017-04-20 04:22] LABS: Alanine Aminotransferase 10 Units/L (0-55); Albumin 2.3 g/dL (3.5-5.0); Albumin/Globulin Ratio 0.7 (1.1-2.2); Alkaline Phosphatase 57 Units/L (38-126); Aspartate Amino Transferase 13 Units/L (5-34); BUN/Creatinine Ratio 23 (6-26); Bilirubin,Total 0.2 mg/dL (0.2-1.2); Blood Urea Nitrogen 18 mg/dL (7-20); Calcium 7.2 mg/dL (8.6-10.8); Carbon Dioxide 19 mEq/L (19-29); Chloride 103 mEq/L (98-109); Globulin 3.3 g/dL (2.4-3.5); Glucose 303 mg/dL (70-99); Osmolality,Calculated 281 (280-300); Potassium 3.9 mEq/L (3.5-4.5); Total Protein 5.6 g/dL (6.0-8.3); eGFR For African Americans > 60 (> 60); eGFR For Non-African Americans > 60 (> 60)
[2017-04-20 04:25] LABS: Sodium 129 mEq/L (136-145)
[2017-04-20] MEDS: Pantoprazole 40 MG VIAL IVP SCH (07:42)
[2017-04-20] MEDS: *HR* Heparin 5,000 UNIT/ML VIAL SQ SCH ×2 (07:42→15:46)
[2017-04-20] MEDS: Metoprolol XL (24 HR) Succ 25 MG TAB.ER.24H PO SCH (07:42)
[2017-04-20] MEDS: Insulin LISPRO 300 UNITS/3 ML VIAL SQ SCH ×7 (07:42→21:24)
[2017-04-20] MEDS ORDERED: Levofloxacin 750 MG/150 ML 750 MG/150 ML BAG IVPB SCH (09:00)
[2017-04-20] MEDS: predniSONE 20 MG TABLET PO SCH (09:02)
--- NOTE | 2017-04-20 09:48 | Internal Med Progress Note ---
Date of Encounter: 04/20/17 Time of Encounter: 09:43 - Assessment and plan (1) Sepsis Current Visit: Yes Status: Acute Assessment and plan: patient presented with pleuritic chest pain, cough, SOB, WBC 19.7, temperature 103.2 F, heart rate 115 bpm, respiratory rate 24. BP on admission 116/44 CXR showed RLL pneumonia Blood culture with H.influenza, sensitivity is pending Received levaquin on admission Started on 2g Ceftriaxone daily -day 2, continue same Continue Azithromycin-day 2 Blood culture 04/18 grdone today 04/20, will follow Leukocytosis picture may be impacted by high dose steroids, will continue to monitor BP is acceptable, D/C IVF High risk condition, Qualifiers: Sepsis type: Haemophilus influenzae Qualified Code(s): A41.3 - Sepsis due to Hemophilus influenzae (2) Bacteremia Current Visit: Yes Status: Acute Assessment and plan: As above (3) Essential hypertension Current Visit: Yes Status: Chronic Assessment and plan: Continue current meds (4) Diabetes mellitus Current Visit: Yes Status: Chronic Assessment and plan: Uncontrolled , with hyperglycemia, exacerbated by steroids A1C 8.0 Increase basal insulin, add prandial and low dose coverage FS ACHS ADA diet Qualifiers: Diabetes mellitus type: type 2 Diabetes mellitus complication status: with hyperglycemia Diabetes mellitus skilled nursing insulin use: without skilled nursing use Qualified Code(s): E11.65 - Type 2 diabetes mellitus with hyperglycemia (5) Pneumonia Current Visit: Yes Status: Acute Assessment and plan: As in sepsis Qualifiers: Pneumonia type: due to Haemophilus influenzae Laterality: right Lung location: lower lobe of lung Qualified Code(s): J14 - Pneumonia due to Hemophilus influenzae (6) Acute exacerbation of chronic obstructive airways disease Current Visit: Yes Status: Acute Assessment and plan: Continue duonebs, prednisone, antibiotics for pneumonia (7) Hypomagnesemia Current Visit: Yes Status: Acute Assessment and plan: Mag replaced, continue to monitor (8) Rheumatoid arthritis Current Visit: Yes Status: Chronic Qualifiers: Rheumatoid arthritis location: unspecified site Rheumatoid factor presence : unspecified presence Qualified Code(s): M06.9 - Rheumatoid arthritis, unspecified - Subjective Interval history: Seen and evaluated at bedside patient with sepsis secondary to RLL pneumonia, H. influenza bacteremia, Pleuritic chest pain secondary to PNA and COPDE She denies new complains She also reports resolution of chest pain - Constitutional Vitals: Temp Pulse Resp BP Pulse Ox 97.8 F 91 16 103/66 92 04/20/17 05:09 04/20/17 05:20 04/20/17 08:02 04/20/17 05:09 04/20/17 08:02 General appearance: Present: cooperative, A&O X 3, pleasant, no acute distress, obese, answers questions appropriately - Head Head exam: Present: atraumatic, normocephalic - Eye Eye exam: Present: PERRL, conjuntiva pink, sclera anicteric Pupils: Present: PERRL - Neck Neck exam general surgery: Present: supple, trachea midline. Absent: lymphadenopathy - Respiratory Respiratory exam: Present: rhonchi, wheezes. Absent: accessory muscle use, rales - Cardiovascular Cardiovascular exam: Present: RRR, +S1, +S2. Absent: diastolic murmur, gallop, rubs, systolic murmur - GI/Abdominal GI/Abdominal exam: Present: normal bowel sounds, soft, no peritoneal signs. Absent: distended, tenderness - Extremities Exam Extremities exam: Present: warm, radial pulses palpable and symmetrical. Absent : calf tenderness, cyanotic, pedal edema - Neurological Exam Neurological exam: Present: alert, CN II-XII intact, oriented X3, no focal deficits. Absent: pronater drift, facial droop, speech deficit - Skin Skin exam: Present: dry, intact Internal Medicine: Result - Labs CBC & Chem 7: 04/20/17 03:13 04/20/17 03:13 Labs: Short CBC 04/20/17 Range/Units 03:13 WBC 17.3 H (4.3-11.1) K/mcL Hgb 10.2 L (11.5-15.4) g/dL Hct 31.6 L (35.3-44.9) % Plt Count 261 (140-400) K/mcL Neutrophils # 15.5 H (1.6-8.9) K/mcL BMP 04/20/17 03:13 Sodium 129 L D Potassium 3.9 Chloride 103 Carbon Dioxide 19 BUN 18 Creatinine 0.80 Glucose 303 H Calcium 7.2 L Liver Function 04/20/17 Range/Units 03:13 Total Bilirubin 0.2 (0.2-1.2) mg/dL AST 13 (5-34) Units/L ALT 10 (0-55) Units/L Alkaline Phosphatase 57 (38-126) Units/L Albumin 2.3 L (3.5-5.0) g/dL - ABG Interpretation ABG results: PT/INR, D-dimer PT 15.1 Seconds (9.4-12.1) H 04/19/17 03:38 D-Dimer 1048 ng/mLFEU (0-500) H 04/18/17 17:46 Consult Discharge Plan - Plan Referrals: Yadira Morse, INNERSOLE FITTER [Advanced Practice Nurse] - 04/25/17 2:00 pm
[2017-04-20] MEDS: Azithromycin 500 MG in D5% in Water 250 ML IVPB SCH (11:53)
[2017-04-20] MEDS: (Leflunomide [Arava] 20 MG) PO SCH (18:16)
[2017-04-20] MEDS: Insulin DETEMIR 100 UNIT/ML X5UNITS SQ SCH (21:25)
[2017-04-21] MEDS: *HR* Heparin 5,000 UNIT/ML VIAL SQ SCH ×3 (00:35→16:44)
[2017-04-21] MEDS: Ipratropium/Albuterol Neb 3 ML IH SCH ×7 (00:54→23:58)
[2017-04-21 06:27] LABS: Basophils % 0.1 %; Hematocrit 32.5 % (35.3-44.9); Hemoglobin 10.6 g/dL (11.5-15.4); Immature Granulocytes % 0.7 % (0-4); Lymphocytes # 1.3 K/mcL (0.6-4.6); Lymphocytes % 12.3 %; Mean Corpuscular HGB Conc 32.6 g/dL (31.6-35.5); Mean Corpuscular Hemoglobin 27.5 pg (28.0-33.3); Mean Corpuscular Volume 84.2 fL (83.0-100.0); Mean Platelet Volume 10.5 fL (9.4-12.4); Monocytes # 0.7 K/mcL (0.0-1.3); Monocytes % 6.6 %; Neutrophils # 8.4 K/mcL (1.6-8.9); Platelet Count 279 K/mcL (140-400); Red Blood Count 3.86 M/mcL (3.82-4.97); Red Cell Distribution Width 14.9 % (11.5-14.5); Segmented Neutrophils % 80.3 %
[2017-04-21 06:45] LABS: Alanine Aminotransferase 12 Units/L (0-55); Albumin 2.4 g/dL (3.5-5.0); Albumin/Globulin Ratio 0.8 (1.1-2.2); Alkaline Phosphatase 57 Units/L (38-126); Aspartate Amino Transferase 12 Units/L (5-34); BUN/Creatinine Ratio 21 (6-26); Bilirubin,Total 0.2 mg/dL (0.2-1.2); Blood Urea Nitrogen 16 mg/dL (7-20); Calcium 7.7 mg/dL (8.6-10.8); Carbon Dioxide 20 mEq/L (19-29); Chloride 108 mEq/L (98-109); Globulin 3.2 g/dL (2.4-3.5); Glucose 109 mg/dL (70-99); Osmolality,Calculated 282 (280-300); Potassium 4.1 mEq/L (3.5-4.5); Sodium 135 mEq/L (136-145); Total Protein 5.6 g/dL (6.0-8.3); eGFR For African Americans > 60 (> 60); eGFR For Non-African Americans > 60 (> 60)
[2017-04-21] MEDS: Insulin LISPRO 300 UNITS/3 ML VIAL SQ SCH ×7 (07:46→20:46)
[2017-04-21] MEDS: Metoprolol XL (24 HR) Succ 25 MG TAB.ER.24H PO SCH (07:52)
[2017-04-21] MEDS: predniSONE 20 MG TABLET PO SCH (07:52)
[2017-04-21] MEDS: (Leflunomide [Arava] 20 MG) PO SCH (07:54)
--- NOTE | 2017-04-21 10:33 | Internal Med Progress Note ---
Date of Encounter: 04/21/17 Time of Encounter: 10:33 - Assessment and plan (1) Sepsis Current Visit: Yes Status: Acute Assessment and plan: patient presented with pleuritic chest pain, cough, SOB, WBC 19.7, temperature 103.2 F, heart rate 115 bpm, respiratory rate 24. BP on admission 116/44 CXR showed RLL pneumonia Blood culture with H.influenza, sensitivity is pending Received levaquin on admission Started on 2g Ceftriaxone daily -day 3, continue same Continue Azithromycin-day 3 Blood culture 04/18 with H.infleunza, Repeat blood culture done 04/20 preliminary no growth Leukocytosis resolved Await final blood culture report patient may be transferred out of SDU prn Qualifiers: Sepsis type: Haemophilus influenzae Qualified Code(s): A41.3 - Sepsis due to Hemophilus influenzae (2) Bacteremia Current Visit: Yes Status: Acute Assessment and plan: As above (3) Essential hypertension Current Visit: Yes Status: Chronic Assessment and plan: Continue current meds (4) Diabetes mellitus Current Visit: Yes Status: Chronic Assessment and plan: Uncontrolled , with hyperglycemia, exacerbated by steroids A1C 8.0 Increase basal insulin, add prandial and low dose coverage FS ACHS ADA diet Qualifiers: Diabetes mellitus type: type 2 Diabetes mellitus complication status: with hyperglycemia Diabetes mellitus fci insulin use: without fci use Qualified Code(s): E11.65 - Type 2 diabetes mellitus with hyperglycemia (5) Pneumonia Current Visit: Yes Status: Acute Assessment and plan: As in sepsis Qualifiers: Pneumonia type: due to Haemophilus influenzae Laterality: right Lung location: lower lobe of lung Qualified Code(s): J14 - Pneumonia due to Hemophilus influenzae (6) Acute exacerbation of chronic obstructive airways disease Current Visit: Yes Status: Acute Assessment and plan: Continue duonebs, prednisone, antibiotics for pneumonia (7) Hypomagnesemia Current Visit: Yes Status: Acute Assessment and plan: Mag replaced, continue to monitor (8) Rheumatoid arthritis Current Visit: Yes Status: Chronic Assessment and plan: Continue home meds Qualifiers: Rheumatoid arthritis location: unspecified site Rheumatoid factor presence : unspecified presence Qualified Code(s): M06.9 - Rheumatoid arthritis, unspecified - Subjective Interval history: Seen and evaluated at bedside patient with sepsis secondary to RLL pneumonia, H. influenza bacteremia, Pleuritic chest pain secondary to PNA and COPDE She denies new complains She is ambulatory She has some mild wheezing on exam Repeat blood culture preliminary negative - Constitutional Vitals: Temp Pulse Resp BP Pulse Ox 97.5 F L 85 16 110/53 93 04/21/17 07:24 04/21/17 08:01 04/21/17 08:06 04/21/17 08:06 04/21/17 08:06 General appearance: Present: cooperative, A&O X 3, pleasant, no acute distress, obese, answers questions appropriately - Head Head exam: Present: atraumatic, normocephalic - Eye Eye exam: Present: PERRL, conjuntiva pink, sclera anicteric Pupils: Present: PERRL - Neck Neck exam general surgery: Present: supple, trachea midline. Absent: lymphadenopathy - Respiratory Respiratory exam: Present: rhonchi, wheezes (few, scattered) - Cardiovascular Cardiovascular exam: Present: RRR, +S1, +S2. Absent: diastolic murmur, gallop, rubs, systolic murmur - GI/Abdominal GI/Abdominal exam: Present: normal bowel sounds, soft, no peritoneal signs. Absent: distended, tenderness - Extremities Exam Extremities exam: Present: warm, radial pulses palpable and symmetrical. Absent : calf tenderness, cyanotic, pedal edema - Neurological Exam Neurological exam: Present: alert, CN II-XII intact, oriented X3, no focal deficits. Absent: pronater drift, facial droop, speech deficit - Skin Skin exam: Present: dry, intact Internal Medicine: Result - Labs CBC & Chem 7: 04/21/17 05:48 04/21/17 05:48 Labs: Short CBC 04/21/17 Range/Units 05:48 WBC 10.5 (4.3-11.1) K/mcL Hgb 10.6 L (11.5-15.4) g/dL Hct 32.5 L (35.3-44.9) % Plt Count 279 (140-400) K/mcL Neutrophils # 8.4 (1.6-8.9) K/mcL BMP 04/21/17 05:48 Sodium 135 L Potassium 4.1 Chloride 108 Carbon Dioxide 20 BUN 16 Creatinine 0.75 Glucose 109 H Calcium 7.7 L Liver Function 04/21/17 Range/Units 05:48 Total Bilirubin 0.2 (0.2-1.2) mg/dL AST 12 (5-34) Units/L ALT 12 (0-55) Units/L Alkaline Phosphatase 57 (38-126) Units/L Albumin 2.4 L (3.5-5.0) g/dL - ABG Interpretation ABG results: PT/INR, D-dimer PT 15.1 Seconds (9.4-12.1) H 04/19/17 03:38 D-Dimer 1048 ng/mLFEU (0-500) H 04/18/17 17:46 Consult Discharge Plan - Plan Referrals: Yadira Morse, VACUUM CLEANER OPERATOR [Advanced Practice Nurse] - 04/25/17 2:00 pm
[2017-04-21] MEDS: Azithromycin 500 MG in D5% in Water 250 ML IVPB SCH (12:07)
[2017-04-21] MEDS: Insulin DETEMIR 100 UNIT/ML X5UNITS SQ SCH (20:46)
[2017-04-22] MEDS: *HR* Heparin 5,000 UNIT/ML VIAL SQ SCH ×2 (01:11→08:03)
[2017-04-22] MEDS: Ipratropium/Albuterol Neb 3 ML IH SCH ×3 (04:36→11:21)
[2017-04-22 06:54] VITALS: BP 111/57
[2017-04-22] MEDS: Insulin LISPRO 300 UNITS/3 ML VIAL SQ SCH ×2 (07:58→08:02)
[2017-04-22] MEDS: predniSONE 20 MG TABLET PO SCH (08:02)
[2017-04-22] MEDS: Metoprolol XL (24 HR) Succ 25 MG TAB.ER.24H PO SCH (08:02)
[2017-04-22] MEDS: (Leflunomide [Arava] 20 MG) PO SCH (08:02)
--- NOTE | 2017-04-22 08:49 | Discharge Summary ---
Date of Encounter: 04/22/17 Time of Encounter: 08:49 - Discharge Diagnosis (1) Sepsis Priority: Primary Status: Resolved Qualifiers: Sepsis type: Haemophilus influenzae Qualified Code(s): A41.3 - Sepsis due to Hemophilus influenzae (2) Bacteremia Priority: Primary Status: Resolved (3) Essential hypertension Priority: Secondary Status: Chronic (4) Diabetes mellitus Priority: Secondary Status: Chronic Qualifiers: Diabetes mellitus type: type 2 Diabetes mellitus complication status: with hyperglycemia Diabetes mellitus residential insulin use: without residential use Qualified Code(s): E11.65 - Type 2 diabetes mellitus with hyperglycemia (5) Pneumonia Priority: Primary Status: Acute Qualifiers: Pneumonia type: due to Haemophilus influenzae Laterality: right Lung location: lower lobe of lung Qualified Code(s): J14 - Pneumonia due to Hemophilus influenzae (6) Acute exacerbation of chronic obstructive airways disease Priority: Primary Status: Acute (7) Hypomagnesemia Priority: Primary Status: Resolved (8) Rheumatoid arthritis Priority: Secondary Status: Chronic Qualifiers: Rheumatoid arthritis location: unspecified site Rheumatoid factor presence : unspecified presence Qualified Code(s): M06.9 - Rheumatoid arthritis, unspecified - Discharge Medications Prescriptions: Azithromycin [Zithromax Tri-Patrice] 500 mg PO DAILY #2 tablet Benzonatate [Tessalon] 100 mg PO TID PRN #12 capsule PRN Reason: Cough Cefdinir [Omnicef] 300 mg PO BID #10 capsule predniSONE [PredniSONE] 40 mg PO DAILY #4 tablet Home Medications: GlipiZIDE [Glucotrol] 10 mg PO QPM 02/18/15 [History] Pantoprazole Sodium [Protonix] 40 mg PO DAILY 02/18/15 [History] Albuterol Sulfate [Ventolin Hfa] 2 puff IH Q4H PRN 10/29/16 [History] Alendronate Sodium [Fosamax] 70 mg PO QWEEK 10/29/16 [History] Hydroxychloroquine [Plaquenuil] 300 mg PO DAILY 10/29/16 [History] Leflunomide [Arava] 20 mg PO DAILY 10/29/16 [History] Metoprolol XL (24 HR) Succ [Toprol Xl] 25 mg PO DAILY 10/29/16 [History] Pravastatin Sodium [Pravachol] 80 mg PO DAILY 10/29/16 [History] glipiZIDE [Glucotrol] 15 mg PO QAM 04/18/17 [History] Azithromycin [Zithromax Tri-Patrice] 500 mg PO DAILY #2 tablet 04/22/17 [Rx] Benzonatate [Tessalon] 100 mg PO TID PRN #12 capsule 04/22/17 [Rx] Cefdinir [Omnicef] 300 mg PO BID #10 capsule 04/22/17 [Rx] predniSONE [PredniSONE] 40 mg PO DAILY #4 tablet 04/22/17 [Rx] Allergies/Adverse Reactions: 3 Allergy/AdvReac Type Severity Reaction Status Date / Time codeine AdvReac Gastrointestinal Verified 04/18/17 09:47 Upset Date of admission: 04/18/17 12:24 Primary care physician: Mary Galeana, Consults: 04/18/17 13:27 Consult to Campaign Specialist [CONS] Routine Reason for SW Consult: Please assess patient for home needs for post- discharge planning. Patient reports she does not currently use home O2. [facility] Discharging clinician: Sumeet Gordillo Anticipated date of discharge: 04/22/17 - Patient Status Disposition: Home, Self-Care Condition: Fair - Discharge Instructions Instructions: Benzonatate (By mouth), Prednisone (By mouth), Azithromycin (By mouth), Cefdinir (By mouth) Follow Up With: Yadira Morse, BODY SANDER [Advanced Practice Nurse] - 04/25/17 2:00 pm Additional Instructions: Follow-up appointments: If there is not an appointment listed below, please call your physician and schedule a follow-up appointment. If you have congestive heart failure and your symptoms return, make an appointment with your physician. Medication List: Carry an up to date list of medications you are taking at all time. We have given you an updated medication list including any new medications that you have been prescribed. Please provide that list to your primary provider If you smoke, STOP: Smoking or tobacco use significantly increases your risk of heart and lung disease. Your chance of disease greatly increases if you continue to smoke. For more information, call the [place] tobacco quit line for smoking cessation - QUIT-NOW ( ) - Diet and Activity Activity: resume usual activities as tolerated Diet: diabetic diet, low fat, low cholesterol, low salt diet Interval History: See below Hospital course: Ms. Barber is a 76 year old female who was admitted for management of sepsis secondary to H.infleunza pnemonia and bacteremia She has a PMH of rheumatoid arthritis, HTN, DM She presented with pleuritic chest pain, cough, SOB, WBC 19.7, temperature 103.2 F, heart rate 115 bpm, respiratory rate 24. BP on admission 116/44, her admitting CXR showed RLL pneumonia and admitting Blood culture with H.influenza , sensitivity is pending Received levaquin on admission and started on IV 2g Ceftriaxone daily and 500mg azithromycin, she recived a total of 4 days of antibiotics Repeat blood culture done 04/20 preliminary no growth, with clearance of bactremia demonstrated, Leukocytosis resolved Patient was seen and evaluated at bedside and is clinically improved, she has no O2 requirement and her chest exam is remarkably improved. Sepsis has resolved. She is stable to be discharged home for total of 10 days of cephalosporin and 5 days azithromycin She Refused flu shot Follow up with PCP Plan of care discussed, verbalized understanding - Time Spent with Patient Total time spent providing and/or coordinating discharge services: Greater than 30 minutes - Constitutional Vitals: Temp Pulse Resp BP Pulse Ox 97.7 F 81 16 111/57 94 04/22/17 06:50 04/22/17 08:08 04/22/17 07:48 04/22/17 06:50 04/22/17 07:48 General appearance: Present: cooperative, A&O X 3, pleasant, no acute distress, obese, answers questions appropriately - Head Head exam: Present: atraumatic, normocephalic - Eye Eye exam: Present: PERRL, conjuntiva pink, sclera anicteric Pupils: Present: PERRL - Neck Neck exam general surgery: Present: supple, trachea midline. Absent: lymphadenopathy - Respiratory Additional comments: rhonchorous on R lung zone, no wheezing - Cardiovascular Cardiovascular exam: Present: RRR, +S1, +S2. Absent: diastolic murmur, gallop, rubs, systolic murmur - GI/Abdominal GI/Abdominal exam: Present: normal bowel sounds, soft, no peritoneal signs. Absent: distended, tenderness - Extremities Exam Extremities exam: Present: warm, radial pulses palpable and symmetrical. Absent : calf tenderness, cyanotic, pedal edema - Neurological Exam Neurological exam: Present: alert, CN II-XII intact, oriented X3, no focal deficits. Absent: pronater drift, facial droop, speech deficit - Skin Skin exam: Present: dry, intact
[2017-04-22 10:00] LABS: Basophils % 0.3 %; Hemoglobin 11.8 g/dL (11.5-15.4); Immature Granulocytes % 1.6 % (0-4); Lymphocytes # 1.6 K/mcL (0.6-4.6); Mean Corpuscular HGB Conc 31.9 g/dL (31.6-35.5); Mean Corpuscular Hemoglobin 27.6 pg (28.0-33.3); Mean Corpuscular Volume 86.4 fL (83.0-100.0); Mean Platelet Volume 10.2 fL (9.4-12.4); Neutrophils # 6.8 K/mcL (1.6-8.9); Platelet Count 268 K/mcL (140-400); Red Blood Count 4.28 M/mcL (3.82-4.97); Red Cell Distribution Width 15.4 % (11.5-14.5); Segmented Neutrophils % 71.1 %
--- NOTE | 2017-04-22 10:02 | Physician Discharge Referral ---
Home Health/Hosp Referral Info Transfer to: Home Health Attending Provider: Rand Provider in Charge Post Discharge: PCP - Diagnosis (1) Sepsis Priority: Primary Status: Resolved (2) Bacteremia Priority: Primary Status: Resolved (3) Essential hypertension Priority: Secondary Status: Chronic (4) Diabetes mellitus Priority: Secondary Status: Chronic (5) Pneumonia Priority: Primary Status: Acute (6) Acute exacerbation of chronic obstructive airways disease Priority: Primary Status: Acute (7) Hypomagnesemia Priority: Primary Status: Resolved (8) Rheumatoid arthritis Priority: Secondary Status: Chronic - Respiratory Orders Smoking Cessation: Smoking cessation has been advised. For more information, call the [place] Tobacco Quit Line at 7-382-VDAH-NOW. - Services Needed Following services are medically necessary services: Home Health Aide - Transfer Medications Prescriptions: Azithromycin [Zithromax Tri-Patrice] 500 mg PO DAILY #2 tablet Benzonatate [Tessalon] 100 mg PO TID PRN #12 capsule PRN Reason: Cough Cefdinir [Omnicef] 300 mg PO BID #10 capsule predniSONE [PredniSONE] 40 mg PO DAILY #4 tablet Home Medications: GlipiZIDE [Glucotrol] 10 mg PO QPM 02/18/15 [History] Pantoprazole Sodium [Protonix] 40 mg PO DAILY 02/18/15 [History] Albuterol Sulfate [Ventolin Hfa] 2 puff IH Q4H PRN 10/29/16 [History] Alendronate Sodium [Fosamax] 70 mg PO QWEEK 10/29/16 [History] Hydroxychloroquine [Plaquenuil] 300 mg PO DAILY 10/29/16 [History] Leflunomide [Arava] 20 mg PO DAILY 10/29/16 [History] Metoprolol XL (24 HR) Succ [Toprol Xl] 25 mg PO DAILY 10/29/16 [History] Pravastatin Sodium [Pravachol] 80 mg PO DAILY 10/29/16 [History] glipiZIDE [Glucotrol] 15 mg PO QAM 04/18/17 [History] Azithromycin [Zithromax Tri-Patrice] 500 mg PO DAILY #2 tablet 04/22/17 [Rx] Benzonatate [Tessalon] 100 mg PO TID PRN #12 capsule 04/22/17 [Rx] Cefdinir [Omnicef] 300 mg PO BID #10 capsule 04/22/17 [Rx] predniSONE [PredniSONE] 40 mg PO DAILY #4 tablet 04/22/17 [Rx] Allergies/Adverse Reactions: 3 Allergy/AdvReac Type Severity Reaction Status Date / Time codeine AdvReac Gastrointestinal Verified 04/18/17 09:47 Upset Certification: Further, I certify that my clinical findings support that this patient is homebound (i.e. absences from home require considerable and taxing effort and are for medical reasons or worship services or infrequently or short duration when for other reasons) because: Homebound Reason: Patient requires assistance of a person or device to safely leave home Attestation: My signature below is to certify that this patient is under my care and that I, or nurse practitioner, or a physician's custody assistant working with me, has a face-to -face encounter with this patient.
[2017-04-22 10:12] LABS: Alanine Aminotransferase 15 Units/L (0-55); Albumin 2.7 g/dL (3.5-5.0); Albumin/Globulin Ratio 0.8 (1.1-2.2); Alkaline Phosphatase 60 Units/L (38-126); Aspartate Amino Transferase 16 Units/L (5-34); BUN/Creatinine Ratio 21 (6-26); Bilirubin,Total 0.3 mg/dL (0.2-1.2); Blood Urea Nitrogen 17 mg/dL (7-20); Calcium 8.3 mg/dL (8.6-10.8); Carbon Dioxide 22 mEq/L (19-29); Chloride 113 mEq/L (98-109); Globulin 3.3 g/dL (2.4-3.5); Glucose 98 mg/dL (70-99); Osmolality,Calculated 296 (280-300); Potassium 4.1 mEq/L (3.5-4.5); eGFR For African Americans > 60 (> 60); eGFR For Non-African Americans > 60 (> 60)
[2017-04-22 10:13] LABS: Sodium 142 mEq/L (136-145)
== END 2017-04-22 12:10 | disposition home or self-care (01) | DRG 871 ==
LOC: EMEROO 09:40 → 2NNU 12:24
PROVIDERS: ADMIT Nurse Practitioner Family; ATTEND Internal Medicine

== ENCOUNTER 2018-04-05 18:16 | Observation (INO) ==
[2018-04-05] MEDS ORDERED: Acetaminophen 325 MG TABLET PO ONE (18:46)
--- NOTE | 2018-04-05 21:52 | Emergency Department Note ---
Disposition Clinical Impression: Unable to ambulate Closed fibular fracture Qualifiers: Encounter type: initial encounter Fibula location: shaft Fracture morphology: unspecified fracture morphology Laterality: left Qualified Code(s): S82.402A - Unspecified fracture of shaft of left fibula, initial encounter for closed fracture Disposition: Admitted As Inpatient Condition: Good Referrals: Mary Galeana MD [Primary Care Provider] - Forms: ED Satisfaction Letter General Adult HPI - General Chief complaint: ED Fall Stated complaint: fall Time Seen by Provider: 04/05/18 18:46 Source: patient, EMS Limitations: no limitations Nursing Notes Reviewed: Yes Vital Signs Reviewed: Yes - History of Present Illness HPI Narrative: Patient presents today with daughter for evaluation after fall. Patient was trying to walk out the door where there is a small step to get to the porch. Patient fell onto the left leg. Patient was unable to get up afterwards. Daughter was unable to help her get up and had to call EMS. The patient states that she did not hit her head. It does appear to be a mechanical fall. Patient does not take any anticoagulation. We will perform x-rays of the left leg as this is where she is tender. Patient has no other obvious trauma. Patient has no C-spine tenderness. She has no numbness and tingling in the upper arms or the extremities. There is no other bruising other than what she states is related to aging in her upper extremities. Pain Scale: 5 - Related Data Home Medications Medication Instructions Recorded Confirmed GlipiZIDE [Glucotrol] 10 mg PO QPM 02/18/15 04/18/17 Pantoprazole Sodium [Protonix] 40 mg PO DAILY 02/18/15 04/18/17 Albuterol Sulfate [Ventolin Hfa] 2 puff IH Q4H PRN 10/29/16 04/18/17 Alendronate Sodium [Fosamax] 70 mg PO QWEEK 10/29/16 04/18/17 Hydroxychloroquine [Plaquenuil] 300 mg PO DAILY 10/29/16 04/18/17 Leflunomide [Arava] 20 mg PO DAILY 10/29/16 04/18/17 Metoprolol XL (24 HR) Succ [Toprol 25 mg PO DAILY 10/29/16 04/18/17 Xl] Pravastatin Sodium [Pravachol] 80 mg PO DAILY 10/29/16 04/18/17 glipiZIDE [Glucotrol] 15 mg PO QAM 04/18/17 04/18/17 Previous Rx's Medication Instructions Recorded Azithromycin [Zithromax Tri-Patrice] 500 mg PO DAILY #2 tablet 04/22/17 Benzonatate [Tessalon] 100 mg PO TID PRN #12 capsule 04/22/17 Cefdinir [Omnicef] 300 mg PO BID #10 capsule 04/22/17 predniSONE [PredniSONE] 40 mg PO DAILY #4 tablet 04/22/17 Lidocaine Patch [Lidoderm 5% patch] 1 each TP BID PRN #1 packet 02/26/18 Tramadol HCl [Ultram] 50 mg PO BID PRN 3 Days #6 tab 02/26/18 Allergies Allergy/AdvReac Type Severity Reaction Status Date / Time codeine AdvReac Gastrointestinal Verified 08/31/17 22:54 Upset Oxycodone AdvReac Gastrointestinal Verified 08/31/17 22:55 Upset Review of Systems: CONSTITUTIONAL: No weight loss, fever, chills, weakness or fatigue. HEENT: Eyes: No visual changes. Ears, Nose, Throat: No hearing loss, difficulty talking or unable to swallow. SKIN: No rash or itching. CARDIOVASCULAR: No chest pain, chest pressure or chest discomfort. No palpitations or edema. RESPIRATORY: No shortness of breath, cough or sputum. GASTROINTESTINAL: No anorexia, nausea, vomiting or diarrhea. No abdominal pain or blood. GENITOURINARY: No burning on urination or hematuria. NEUROLOGICAL: No headache, dizziness, syncope, paralysis, ataxia, numbness or tingling in the extremities. No change in bowel or bladder control. MUSCULOSKELETAL: Left leg pain Past Medical History - Past Medical History Medical history: Reports: COPD, diabetes Surgical history: Reports: Psychiatric history: Reports: no psych history - Social History Smoking Status: Former smoker Smokeless Tobacco Status: No Alcohol use: Reports: none Drug use: Reports: none Physical Exam General appearance: NAD, conversant Eyes: anicteric sclerae, moist conjunctivae; no lid-lag; PERRL HENT: Atraumatic; oropharynx clear with moist mucous membranes Neck: Normal appearance; Trachea midline Chest: Symmetrical chest rise; No respiratory distress; Lungs clear to auscultation bilaterally Heart regular rate and rhythm Extremities: Left leg with tenderness to the proximal ankle. Neurovascularly intact distally. Mild associated edema. Skin: Normal temperature, turgor and texture; no rash, ulcers or subcutaneous nodules Psych: Appropriate mood and affect Neuro: Awake and alert - General Limitations: no limitations General appearance: alert, in no apparent distress Course - Reevaluation(s) Reevaluation #1: X-ray shows concern for a midshaft fibula fracture. Tib-fib films were ordered and no show any other signs of injury. The case was discussed with Dr. Livingston, orthopedic surgery, the patient cannot be seen until Sunday for evaluation of possible walking boot. We will attempt to splint the ankle as she is allowed her weight on the side. We will attempt to walk patient with a walker. Patient was unable to tolerate the and ablation trial. Not go very well at all. Patient will need admission for inability to ambulate. - Consultations Consultation #1: Discussed with orthopedic surgery. Please see above. Consultation #2: Discussed with hospitalist. Patient accepted for admission. Vital Signs Temperature 98.3 F 04/05/18 18:19 Pulse Rate 76 04/05/18 18:19 Respiratory Rate 16 04/05/18 18:19 Blood Pressure 121/63 04/05/18 18:19 O2 Sat by Pulse Oximetry 97 04/05/18 18:19 Temperature 98.3 F 04/05/18 18:19 Pulse Rate 68 04/05/18 20:51 Respiratory Rate 16 04/05/18 20:51 Blood Pressure 122/64 04/05/18 20:51 O2 Sat by Pulse Oximetry 95 04/05/18 20:51 Oxygen Delivery Oxygen Delivery Room Air
[2018-04-05 23:49] LABS: Basophils % 0.3 %; Eosinophils # 0.3 K/mcL (0.0-0.6); Eosinophils % 2.5 %; Hematocrit 35.6 % (35.3-44.9); Hemoglobin 12.1 g/dL (11.5-15.4); Immature Granulocytes % 0.7 % (0-4); Lymphocytes # 2.2 K/mcL (0.6-4.6); Lymphocytes % 21.2 %; Mean Corpuscular Volume 85.4 fL (83.0-100.0); Mean Platelet Volume 9.4 fL (9.4-12.4); Monocytes # 0.9 K/mcL (0.0-1.3); Monocytes % 8.8 %; Neutrophils # 6.8 K/mcL (1.6-8.9); Platelet Count 268 K/mcL (140-400); Red Blood Count 4.17 M/mcL (3.82-4.97); Red Cell Distribution Width 13.4 % (11.5-14.5); Segmented Neutrophils % 66.5 %
[2018-04-06 00:09] LABS: BUN/Creatinine Ratio 18 (6-26); Blood Urea Nitrogen 16 mg/dL (8-23); Calcium 8.6 mg/dL (8.6-10.3); Carbon Dioxide 25 mEq/L (23-29); Chloride 101 mEq/L (98-107); Glucose 121 mg/dL (70-105); Osmolality,Calculated 278 (280-300); Potassium 3.8 mEq/L (3.5-5.1); Sodium 133 mEq/L (136-145); eGFR For Non-African Americans > 60 (> 60)
[2018-04-06] MEDS ORDERED: Acetaminophen 325 MG TABLET PO PRN (00:44)
[2018-04-06] MEDS ORDERED: Naloxone 0.4 MG/ML INJ IVP PRN (00:44)
[2018-04-06] MEDS ORDERED: D5% in Water 1,000 ML IVC PRN (00:45)
[2018-04-06] MEDS ORDERED: *HR* Dextrose 50 % in Water (Syg) 50 ML SYRINGE IVP PRN (00:45)
[2018-04-06] MEDS ORDERED: Dextrose Gel 15 GM/37.5 ML TUBE PO PRN ×2 (00:45)
--- NOTE | 2018-04-06 00:48 | Internal Med History&Physical ---
Date of Encounter: 04/06/18 Time of Encounter: 00:34 Internal Medicine - H&P: HPI Chief complaint: Left fibula fracture Admitted From: Emergency Dept Plans for Post Hospital Care: Home History of present illness: Ms. Barber is a 77 year old female Patient states she was walking from her back patio into her garage. There is a high step that leads into the garage, she tripped on this landing on her left side. After which she had pain in her left leg and was not able to get up so ambulance was called. She denies hitting her head or other injuries. In the emergency room left ankle x-ray showed oblique fracture of the mid-shaft fibula, left tibial fibula x-ray showed a fracture of mid-shaft fibula as well. Orthopedic surgery was contacted and stated that she would not be able to be seen until Sunday outpatient where she would be fitted for a walking boot. Emergency room placed the patient in a splint and tried to ambulate her, but she was unable to walk. She was admitted to the hospital for inability to ambulate. Upon my evaluation patient states that she is not in any pain as she rests in the hospital bed. She denies nausea, vomiting, diarrhea, constipation, chest pain and abdominal pain. Past Med Surg Social Fam HX - Past Medical History Medical history: COPD, diabetes Psychiatric history: no psych history - Past Surgical History Surgical History: Additional surgical history: TUBAL LIGATION. L hip - Social History Smoking Status: Former smoker Smokeless Tobacco Status: No Alcohol use: none Drug use: none - Family History Father Hx Family Cardiac Disorders: Yes (pacemaker) Mother Hx Family Cardiac Disorders: Yes (heart problems) Hx Family Cancer: Yes (liver) Internal Medicine - H&P: Meds Albuterol Sulfate [Ventolin Hfa] 2 puff IH Q4H PRN 10/29/16 [History] Alendronate Sodium [Fosamax] 70 mg PO QWEEK 10/29/16 [History] Hydroxychloroquine [Plaquenuil] 300 mg PO DAILY 10/29/16 [History] Leflunomide [Arava] 20 mg PO DAILY 10/29/16 [History] Metoprolol XL (24 HR) Succ [Toprol Xl] 25 mg PO DAILY 10/29/16 [History] Pravastatin Sodium [Pravachol] 80 mg PO DAILY 10/29/16 [History] glipiZIDE [Glucotrol] 15 mg PO QAM 04/18/17 [History] Budesonide/Formoterol 160/4.5 [Symbicort 160/4.5] 2 puff IH BID 04/05/18 [ History] Furosemide [Lasix] 20 mg PO DAILY 04/05/18 [History] Liraglutide [Victoza 2-Patrice] 1.2 mg SQ DAILY 04/05/18 [History] glipiZIDE [Glucotrol] 10 mg PO QPM 04/05/18 [History] 3 Allergy/AdvReac Type Severity Reaction Status Date / Time codeine AdvReac Gastrointestinal Verified 08/31/17 22:54 Upset Oxycodone AdvReac Gastrointestinal Verified 08/31/17 22:55 Upset All Systems PM: A 10-system review of systems was performed and is negative for pertinent findings except as documented above in the HPI. - Constitutional Vitals: Temp Pulse Resp BP Pulse Ox 97.7 F 74 18 125/83 95 04/06/18 00:18 04/06/18 00:18 04/06/18 00:18 04/06/18 00:18 04/06/18 00:18 General appearance: Present: cooperative, A&O X 3, pleasant, no acute distress, answers questions appropriately Exam: As above - Head Head exam: Present: normal inspection - Eye Eye exam: Present: EOMI, normal appearance - Neck Neck exam general surgery: Present: full ROM - Respiratory Respiratory exam: Present: CTAB, wheezes. Absent: chest wall tenderness, decreased breath sounds, rales, respiratory distress, rhonchi - Cardiovascular Cardiovascular exam: Present: RRR. Absent: diastolic murmur, systolic murmur - GI/Abdominal GI/Abdominal exam: Present: normal bowel sounds, soft. Absent: tenderness - Extremities Exam Extremities exam: Present: pedal edema, warm, radial pulses palpable and symmetrical. Absent: tenderness Additional comments: 1+ pitting edema right lower extremity Left lower extremity in splint from knee to foot. - Neurological Exam Neurological exam: Present: no focal deficits. Absent: motor sensory deficit, facial droop, speech deficit - Skin Skin exam: Present: dry, normal color, warm Internal Med - H&P Results - Labs CBC & Chem 7: 04/05/18 23:42 04/05/18 23:42 Labs: Short CBC 04/05/18 Range/Units 23:42 WBC 10.3 (4.3-11.1) K/mcL Hgb 12.1 (11.5-15.4) g/dL Hct 35.6 (35.3-44.9) % Plt Count 268 (140-400) K/mcL Neutrophils # 6.8 (1.6-8.9) K/mcL BMP 04/05/18 23:42 Sodium 133 L Potassium 3.8 Chloride 101 Carbon Dioxide 25 BUN 16 Creatinine 0.87 Glucose 121 H Calcium 8.6 - Assessment and plan (1) Closed fibular fracture Current Visit: Yes Status: Acute Assessment and plan: Patient fell while stepping up to a high step into her garage. She landed on her left side and then could not get up afterwards. Left tibia-fibula x-ray showed fracture of the midshaft fibula. She was trialed in the ER to ambulate but was not able to. Orthopedic surgery called from the ER, recommended walking boot Continue Tylenol for pain as needed Qualifiers: Encounter type: initial encounter Fibula location: shaft Fracture morphology: unspecified fracture morphology Laterality: left Qualified Code( s): S82.402A - Unspecified fracture of shaft of left fibula, initial encounter for closed fracture (2) Unable to ambulate Current Visit: Yes Status: Acute Assessment and plan: Patient unable to walk secondary to pain in the left leg. Physical therapy evaluation in the morning Occupational therapy evaluation in the morning (3) Lower extremity edema Current Visit: Yes Status: Acute Assessment and plan: Chronic, takes furosemide at home. Continue home meds (4) Diabetes mellitus Current Visit: No Status: Chronic Assessment and plan: Monitor sugars with meals and at night Low-dose sliding scale insulin as needed Qualifiers: Diabetes mellitus type: type 2 Diabetes mellitus forestry adviser insulin use: without forestry adviser use Diabetes mellitus complication status: with hyperglycemia Qualified Code(s): E11.65 - Type 2 diabetes mellitus with hyperglycemia (5) DVT prophylaxis Current Visit: No Status: Acute Assessment and plan: Heparin subcutaneous - Time Spent With Patient Total time spent is greater than 50% in coordination of care (as documented) at patient's floor/unit and/or counseling patient: Greater than 35 minutes
[2018-04-06] MEDS: *HR* Heparin 5,000 UNIT/ML VIAL SQ SCH ×2 (06:02→16:47)
--- NOTE | 2018-04-06 08:48 | Internal Med Progress Note ---
Hospitalist Progress Note - Encounter Date of Encounter: 04/06/18 Time of Encounter: 08:45 - Subjective Interval History: No acute changes overnight. She reports that she was able to ambulate to the bedside chair without difficulty with assistance and a walker. - Exam Vitals: Temp Pulse Resp BP Pulse Ox 97.8 F 73 16 115/69 94 04/06/18 07:57 04/06/18 07:57 04/06/18 07:57 04/06/18 07:57 04/06/18 07:57 Exam: PHYSICAL EXAMINATION: GENERAL: The patient is a elderly female, alert and oriented x3. HEENT: Head is normocephalic and atraumatic. Extraocular muscles are intact. Pupils are equal, round, and reactive to light and accommodation. NECK: Supple. No carotid bruits. No lymphadenopathy or thyromegaly. LUNGS: Clear to auscultation B/L AP and L. HEART: Regular rate and rhythm, S1, S2 without murmur rubs or gallops. ABDOMEN: Soft, nontender, and nondistended. Positive bowel sounds. No hepatosplenomegaly was noted. EXTREMITIES: No extremity lesion swelling or edema. Intact distal circulation and LLE - Assessment and Plan (1) Closed fibular fracture Current Visit: Yes Status: Acute Assessment and Plan: Closed fibular fracture S/P fall with ambulatory dysfunction. Left tibia- fibula x-ray shows fracture midshaft fibula. Failed ambulation trial and ED resulting in admission for ambulatory dysfunction. ED physician spoke with orthopedic surgeon who recommends walking boot and follow-up Sunday04/08/18. Patient will need Rx for walker at DC and follow-up appointment with orthopedic surgery. Continue to treat pain with Tylenol as needed. Today she was able to ambulate around the room with minimal assistance and a walker. Walking boot to be delivered to room and fit prior to DC (2) Unable to ambulate Current Visit: Yes Status: Acute Assessment and Plan: Admitted with ambulatory dysfunction S/P fall with fibula fracture. PTOT seen patient this morning. She reports she was able to ambulate with walker to bedside chair with minimal assistance. Consider discharge home this afternoon with walker. She will need an Rx for this. Patient to follow-up with fourth toe on Sunday04/08/18 for walking boot. Schedule follow-up prior to DC (3) Lower extremity edema Current Visit: Yes Status: Acute Assessment and Plan: Chronic, generalized. Takes furosemide at home, and tinea while inpatient (4) Diabetes mellitus Current Visit: No Status: Chronic Assessment and Plan: Prior history, but glucose stable, 93 this morning. Continue sliding scale coverage DVT Prophylaxis: Subcutaneous heparin - Time Spent with Patient Total time spent is greater than 50% in coordination of care (as documented) at patient's floor/unit and/or counseling patient: less than 15 minutes Plan of Care Discussed with: patient Internal Medicine: Result - Labs CBC & Chem 7: 04/05/18 23:42 04/05/18 23:42 Labs: Short CBC 04/05/18 Range/Units 23:42 WBC 10.3 (4.3-11.1) K/mcL Hgb 12.1 (11.5-15.4) g/dL Hct 35.6 (35.3-44.9) % Plt Count 268 (140-400) K/mcL Neutrophils # 6.8 (1.6-8.9) K/mcL BMP 04/05/18 23:42 Sodium 133 L Potassium 3.8 Chloride 101 Carbon Dioxide 25 BUN 16 Creatinine 0.87 Glucose 121 H Calcium 8.6 Consult Discharge Plan - Plan Referrals: Mary Galeana MD [Primary Care Provider] - (1) Closed fibular fracture Qualifiers: Encounter type: initial encounter Fibula location: shaft Fracture morphology : unspecified fracture morphology Laterality: left Qualified Code(s): S82.402A - Unspecified fracture of shaft of left fibula, initial encounter for closed fracture (4) Diabetes mellitus Qualifiers: Diabetes mellitus type: type 2 Diabetes mellitus correction insulin use: without correction use Diabetes mellitus complication status: with hyperglycemia Qualified Code(s): E11.65 - Type 2 diabetes mellitus with hyperglycemia
[2018-04-06] MEDS: Insulin LISPRO 300 UNITS/3 ML VIAL SQ SCH ×3 (10:01→16:44)
--- NOTE | 2018-04-06 10:31 | Orthopedic Consult Note ---
Date of Encounter: 04/06/18 Time of Encounter: 10:31 Assessment and Plan (1) Closed fibular fracture Current Visit: Yes Status: Acute The diagnosis and recommended treatment options were discussed with patient. She may be weight-bear as tolerated in a walking boot. Continue with nonoperative management of the left leg. We will sign off, follow-up in orthopedic clinic in 2-3 weeks. Qualifiers: Encounter type: initial encounter Fibula location: shaft Fracture morphology: unspecified fracture morphology Laterality: left Qualified Code( s): S82.402A - Unspecified fracture of shaft of left fibula, initial encounter for closed fracture History of Present Illness HPI: Ms. Barber is a 77 year old female with COPD, diabetes admitted with left leg pain and midshaft fibula fracture after a fall yesterday. Patient had a mechanical fall on the left leg and had pain and inability to ambulate afterwards. She is brought to the emergency department and x-rays revealed a minimally displaced midshaft fibular fracture. She was unable to ambulate and so was admitted for pain control purposes. Denies numbness or tingling. Denies pain in other extremities. Denies previous injury to the leg. No prodromal symptoms prior to fall. Past Med Surg Social Fam HX - Past Medical History Medical history: COPD, diabetes Psychiatric history: no psych history - Past Surgical History Surgical History: Additional surgical history: TUBAL LIGATION. L hip - Social History Smoking Status: Former smoker Smokeless Tobacco Status: No Alcohol use: none Drug use: none - Family History Father Hx Family Cardiac Disorders: Yes (pacemaker) Mother Hx Family Cardiac Disorders: Yes (heart problems) Hx Family Cancer: Yes (liver) Medications and Allergies Albuterol Sulfate [Ventolin Hfa] 2 puff IH Q4H PRN 10/29/16 [History] Alendronate Sodium [Fosamax] 70 mg PO QWEEK 10/29/16 [History] Hydroxychloroquine [Plaquenuil] 300 mg PO DAILY 10/29/16 [History] Leflunomide [Arava] 20 mg PO DAILY 10/29/16 [History] Metoprolol XL (24 HR) Succ [Toprol Xl] 25 mg PO DAILY 10/29/16 [History] Pravastatin Sodium [Pravachol] 80 mg PO DAILY 04/30/17 [History] glipiZIDE [Glucotrol] 15 mg PO QAM 04/18/17 [History] Budesonide/Formoterol 160/4.5 [Symbicort 160/4.5] 2 puff IH BID 04/05/18 [ History] Furosemide [Lasix] 20 mg PO DAILY 04/05/18 [History] Liraglutide [Victoza 2-Patrice] 1.2 mg SQ DAILY 04/05/18 [History] glipiZIDE [Glucotrol] 10 mg PO QPM 04/05/18 [History] 3 Allergy/AdvReac Type Severity Reaction Status Date / Time codeine AdvReac Gastrointestinal Verified 08/31/17 22:54 Upset Oxycodone AdvReac Gastrointestinal Verified 08/31/17 22:55 Upset All Systems Reviewed: The remainder of the systems were reviewed and are negative except as noted in the history of present illness. Physical Exam - Constitutional Vitals: Temp Pulse Resp BP Pulse Ox 97.8 F 73 16 115/69 94 04/06/18 07:57 04/06/18 07:57 04/06/18 07:57 04/06/18 07:57 04/06/18 07:57 Exam: Consult Exam: Constitutional -Vitals reviewed -The patient is well developed and well nourished. -Mood is pleasant. -The patient is well groomed. Psychiatric -The patient is fully alert and oriented x 3. Respiratory: -Respiratory effort normal Abdomen: -Soft abdomen -Non tender -Non distended: Left upper extremity: -No deformities. The overlying skin is intact. No obvious signs of acute trauma. -No tenderness to palpation throughout. -No significant pain with passive motion of the shoulder, elbow, wrist, and fingers within the limits of the bed. -Able to make an "OK" sign, cross the index and long fingers, and extend the thumb. -Sensation grossly intact to light touch throughout the median, radial, and ulnar distributions. -Radial pulse is present; Fingers have good capillary refill. Right upper extremity: -No deformities. The overlying skin is intact. No obvious signs of acute trauma. -No tenderness to palpation throughout. -No significant pain with passive motion of the shoulder, elbow, wrist, and fingers within the limits of the bed. -Able to make an "OK" sign, cross the index and long fingers, and extend the thumb. -Sensation grossly intact to light touch throughout the median, radial, and ulnar distributions. -Radial pulse is present; Fingers have good capillary refill. Left lower extremity: -No deformities. The overlying skin is intact. No obvious signs of acute trauma. -Tenderness palpation over lateral aspect of the lower leg. -No pain with passive motion of the hip, knee, ankle, and toes within the limits of the bed. -No pain with axial loading of the thigh. -Able to dorsiflex and plantarflex the ankle and toes. -Sensation is grossly intact to light touch throughout the sural, saphenous, superficial peroneal, and deep peroneal distributions. -Toes have good capillary refill. Right lower extremity: -No deformities. The overlying skin is intact. No obvious signs of acute trauma. -No tenderness to palpation throughout. -No pain with passive motion of the hip, knee, ankle, and toes within the limits of the bed. -No pain with axial loading of the thigh. -Able to dorsiflex and plantarflex the ankle and toes. -Sensation is grossly intact to light touch throughout the sural, saphenous, superficial peroneal, and deep peroneal distributions. -Toes have good capillary refill. Results - Labs Result Diagrams: 04/05/18 23:42 04/05/18 23:42 Labs: Abnormal lab results Sodium 133 mEq/L (136-145) L 04/05/18 23:42 Glucose 121 mg/dL (70-105) H 04/05/18 23:42 POC Glucose 115 mg/dL (70-99) H 04/05/18 22:57 Calculated Osmolality 278 (280-300) L 04/05/18 23:42 H & H 04/05/18 Range/Units 23:42 Hgb 12.1 (11.5-15.4) g/dL Hct 35.6 (35.3-44.9) % All other labs normal. - Diagnostic results Knee x-ray: image reviewed (No fracture dislocation of the knee) Ankle/Foot x-ray: image reviewed (Midshaft fracture of the left fibula with minimal displacement and cortical apposition.) Consult Discharge Plan - Plan Referrals: Mary Galeana MD [Primary Care Provider] -
[2018-04-06] MEDS: Furosemide 20 MG TABLET PO SCH (10:43)
--- NOTE | 2018-04-06 12:55 | Discharge Summary ---
- NOTES TO OUTPATIENT PROVIDER Notes to Outpatient Provider: f/u with ortho in 2-3 weeks for fibular fracture Orders not resulted at time of discharge: Pending orders 04/05/18 23:14 EKG [ECG 12 lead ECG] [ECG] Stat Date of Encounter: 04/06/18 Time of Encounter: 12:52 - Discharge Diagnosis (1) Closed fibular fracture Priority: Primary Status: Acute Assessment and Plan: Closed fibular fracture S/P fall with ambulatory dysfunction. Left tibia- fibula x-ray shows a minimally displaced fracture midshaft fibula. Failed ambulation trial and ED resulting in admission for ambulatory dysfunction. Continue to treat pain with Tylenol as needed. On day of DC she has been able to ambulate around the room with minimal assistance and a walker. Recommendations per orthopedic surgeon are for weight bearing as tolerated in walking boot and continue with nonoperative management and conservative pain management measures. Follow up with orthopedic clinic in 2-3 weeks. Qualifiers: Encounter type: initial encounter Fibula location: shaft Fracture morphology: unspecified fracture morphology Laterality: left Qualified Code( s): S82.402A - Unspecified fracture of shaft of left fibula, initial encounter for closed fracture (2) Unable to ambulate Priority: Secondary Status: Acute Assessment and Plan: Admitted with ambulatory dysfunction S/P fall with fibula fracture. PTOT seen patient this morning. She reports she was able to ambulate with walker to bedside chair with minimal assistance. Consider discharge home this afternoon with walker. She will need an Rx for this. Patient to follow-up with fourth toe on Sunday04/08/18 for walking boot. Schedule follow-up prior to DC (3) Lower extremity edema Priority: Secondary Status: Acute Assessment and Plan: Chronic, generalized. Takes furosemide at home, and tinea while inpatient (4) Diabetes mellitus Priority: Secondary Status: Chronic Assessment and Plan: Prior history, but glucose stable, 93 this morning. Continue sliding scale coverage Qualifiers: Diabetes mellitus type: type 2 Diabetes mellitus mcc insulin use: without mcc use Diabetes mellitus complication status: with hyperglycemia Qualified Code(s): E11.65 - Type 2 diabetes mellitus with hyperglycemia Hospital course: Ms. Barber is a 77 year old female who presented from home after a fall. She reports that there is a high step to the garage to which she tripped and landed on her left leg. After the fall patient was unable to stand or weight bear. Failed to ambulate in the ED resulting in admission for ambulatory dysfunction and closed fibular fracture. Left tibia-fibula x-ray shows a minimally displaced fracture midshaft fibula. Continue to treat pain with Tylenol as needed. On day of DC she has been able to ambulate around the room with minimal assistance and a walker. Recommendations per orthopedic surgeon are for weight bearing as tolerated in walking boot and continue with nonoperative management and conservative pain management measures. Follow up with orthopedic clinic in 2-3 weeks. - Time Spent with Patient Total time spent providing and/or coordinating discharge services: - Discharge Medications Home Medications: Albuterol Sulfate [Ventolin Hfa] 2 puff IH Q4H PRN 10/29/16 [History] Alendronate Sodium [Fosamax] 70 mg PO QWEEK 10/29/16 [History] Hydroxychloroquine [Plaquenuil] 300 mg PO DAILY 10/29/16 [History] Leflunomide [Arava] 20 mg PO DAILY 10/29/16 [History] Metoprolol XL (24 HR) Succ [Toprol Xl] 25 mg PO DAILY 10/29/16 [History] Pravastatin Sodium [Pravachol] 80 mg PO DAILY 10/29/16 [History] glipiZIDE [Glucotrol] 15 mg PO QAM 04/18/17 [History] Budesonide/Formoterol 160/4.5 [Symbicort 160/4.5] 2 puff IH BID 04/05/18 [ History] Furosemide [Lasix] 20 mg PO DAILY 04/05/18 [History] Liraglutide [Victoza 2-Patrice] 1.2 mg SQ DAILY 04/05/18 [History] glipiZIDE [Glucotrol] 10 mg PO QPM 04/05/18 [History] Allergies/Adverse Reactions: 3 Allergy/AdvReac Type Severity Reaction Status Date / Time codeine AdvReac Gastrointestinal Verified 08/31/17 22:54 Upset Oxycodone AdvReac Gastrointestinal Verified 08/31/17 22:55 Upset Date of admission: 04/05/18 23:04 Primary care physician: Mary Galeana MD Consults: 04/06/18 01:12 Consult to Physical Therapy [CONS] Routine Comment: Evaluate, develop and implement POC Reason for Consult: Patient fell, has left fibula fracture. Unable to ambulate Does patient have active BEDREST order?: No Is patient medically & hemodynamically stable?: Yes Discharging clinician: Parrish Loja Anticipated date of discharge: 04/06/18 - Constitutional Vitals: Temp Pulse Resp BP Pulse Ox 98.0 F 76 14 114/72 96 04/06/18 11:31 04/06/18 11:31 04/06/18 11:31 04/06/18 11:31 04/06/18 11:31 General appearance: Present: cooperative, A&O X 3, pleasant, no acute distress, answers questions appropriately Exam: PHYSICAL EXAMINATION: GENERAL: The patient is a elderly female, alert and oriented x3. HEENT: Head is normocephalic and atraumatic. Extraocular muscles are intact. Pupils are equal, round, and reactive to light and accommodation. NECK: Supple. No carotid bruits. No lymphadenopathy or thyromegaly. LUNGS: Clear to auscultation B/L AP and L. HEART: Regular rate and rhythm, S1, S2 without murmur rubs or gallops. ABDOMEN: Soft, nontender, and nondistended. Positive bowel sounds. No hepatosplenomegaly was noted. EXTREMITIES: No extremity lesion swelling or edema. Intact distal circulation and LLE - Patient Status Disposition: Home, Self-Care Condition: Good Functional capacity at discharge: uses cane/walker Overall status at discharge: patient is not back to baseline - Discharge Instructions Follow Up With: Mary Galeana MD [Primary Care Provider] - - Diet and Activity Activity: ambulate only with your walker, other (Weightbearing as tolerated with walking boot) Diet: diabetic diet, low fat, low cholesterol, low salt diet
[2018-04-06] MEDS ORDERED: Insulin LISPRO 300 UNITS/3 ML VIAL SQ SCH (21:00)
[2018-04-06] MEDS: Budesonide/Formoterol 160/4.5 1 PUFF INH IH SCH (21:32)
[2018-04-07] MEDS: *HR* Heparin 5,000 UNIT/ML VIAL SQ SCH (05:36)
[2018-04-07] MEDS: Furosemide 20 MG TABLET PO SCH (07:39)
[2018-04-07] MEDS: Insulin LISPRO 300 UNITS/3 ML VIAL SQ SCH (07:39)
[2018-04-07] MEDS: Budesonide/Formoterol 160/4.5 1 PUFF INH IH SCH (08:16)
[2018-04-07] MEDS ORDERED: Metoprolol XL (24 HR) Succ 25 MG TAB.ER.24H PO SCH (09:00)
[2018-04-07] MEDS ORDERED: (Leflunomide [Arava] 20 MG) PO SCH (09:00)
--- NOTE | 2018-04-07 11:12 | Event Note ---
Date of Encounter: 04/07/18 Time of Encounter: 11:09 Patient was discharged yesterday however she did not leave this expected. Her daughter refused to take her yesterday evening because there would not have been enough resources or family at home. There was some additional concern regarding whether or not the patient would have been able to get up C3 stairs and safely into the house without the additional help. The patient and daughter reports that there will be healthier today and the patient will be able to go home without difficulty. Additionally, she will be discharged with his prescription for a wheeled walker and a shower chair as well as a raised commode.
[2018-04-07 11:18] VITALS: BP 103/65
--- NOTE | 2018-04-09 09:48 | Electrocardiograph Report ---
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
== END 2018-04-07 12:12 | disposition home or self-care (01) ==
LOC: 3NENU 18:16 → EMEROOARM 18:16 → 3NENU 23:55
PROVIDERS: ADMIT Pediatrics; ATTEND Pediatrics

== ENCOUNTER 2018-07-28 21:29 | Observation (INO) ==
[2018-07-28] MEDS ORDERED: Aspirin 81 MG TAB.CHEW PO ONE (21:32)
[2018-07-28] MEDS ORDERED: Ipratropium/Albuterol Neb 3 ML IH ONE (21:47)
[2018-07-28] MEDS ORDERED: methylPREDNISolone 125 MG/2 ML VIAL IVP ONE (21:47)
[2018-07-28 22:16] LABS: Bilirubin,Urine Negative (Negative); Blood,Urine Negative (Negative); Clarity,Urine Clear (Clear); Color,Urine Yellow (Yellow); Glucose,Urine (UA) 100 mg/dL (Normal); Ketones,Urine Negative (Negative); Leukocyte Esterase,Urine Negative (Negative); Nitrite,Urine Negative (Negative); PH,Urine 6.5 pH Units (5.0-8.0); Protein,Urine Negative (Neg-Trace); Specific Gravity,Urine 1.013 (1.010-1.025); Urobilinogen,Urine Normal (Normal)
[2018-07-28 22:16] LABS: Basophils % 0.4 %; Eosinophils # 0.2 K/mcL (0.0-0.6); Eosinophils % 2.5 %; Hematocrit 39.7 % (35.3-44.9); Hemoglobin 13.1 g/dL (11.5-15.4); Immature Granulocytes % 0.6 % (0-4); Lymphocytes # 1.4 K/mcL (0.6-4.6); Lymphocytes % 14.9 %; Mean Corpuscular Hemoglobin 28.7 pg (28.0-33.3); Mean Corpuscular Volume 86.9 fL (83.0-100.0); Mean Platelet Volume 9.8 fL (9.4-12.4); Monocytes # 0.9 K/mcL (0.0-1.3); Monocytes % 9.2 %; Neutrophils # 6.8 K/mcL (1.6-8.9); Platelet Count 304 K/mcL (140-400); Red Blood Count 4.57 M/mcL (3.82-4.97); Segmented Neutrophils % 72.4 %
--- NOTE | 2018-07-28 22:20 | Emergency Department Note ---
Disposition Clinical Impression: Palpitation, Sinus arrhythmia, COPD exacerbation Chest pain Qualifiers: Chest pain type: unspecified Qualified Code(s): R07.9 - Chest pain, unspecified Disposition: Admitted As Inpatient Condition: Fair Referrals: NONE,PCP [Primary Care Provider] - Forms: ED Satisfaction Letter General Adult HPI - General Chief complaint: ED Chest Pain Stated complaint: High Blood Sugar Time Seen by Provider: 07/28/18 21:32 Source: patient, EMS Mode of arrival: EMS Limitations: no limitations Nursing Notes Reviewed: Yes Vital Signs Reviewed: Yes - History of Present Illness HPI Narrative: Patient is a 78-year-old female with a past medical history of COPD and diabetes presenting to the emergency department for evaluation of palpitations as well as increased cough. Patient states that earlier today while she was sitting in her chair she felt that her heart was beating irregularly. She states that she also has had intermittent chest pain over the past 3 weeks and describes it as a sharp stabbing pain that is substernal and last for a couple seconds and then goes away states she has not had any episodes in the past few hours and is currently asymptomatic as far as chest pain. She denies dyspnea but states that she has had a worsening cough states that she does inhaler treatments for his COPD once in the morning and once at night. She also has chronic lower ext edema and it is worse than usual. Pain Scale: 0 - Related Data Home Medications Medication Instructions Recorded Confirmed Albuterol Sulfate [Ventolin Hfa] 2 puff IH Q4H PRN 10/29/16 04/05/18 Alendronate Sodium [Fosamax] 70 mg PO QWEEK 10/29/16 04/05/18 Hydroxychloroquine [Plaquenuil] 300 mg PO DAILY 10/29/16 04/05/18 Leflunomide [Arava] 20 mg PO DAILY 10/29/16 04/05/18 Metoprolol XL (24 HR) Succ [Toprol 25 mg PO DAILY 10/29/16 04/05/18 Xl] Pravastatin Sodium [Pravachol] 80 mg PO DAILY 10/29/16 04/05/18 glipiZIDE [Glucotrol] 15 mg PO QAM 04/18/17 04/05/18 Budesonide/Formoterol 160/4.5 2 puff IH BID 04/05/18 04/05/18 [Symbicort 160/4.5] Furosemide [Lasix] 20 mg PO DAILY 04/05/18 04/05/18 Liraglutide [Victoza 2-Patrice] 1.2 mg SQ DAILY 04/05/18 04/05/18 glipiZIDE [Glucotrol] 10 mg PO QPM 04/05/18 04/05/18 Allergies Allergy/AdvReac Type Severity Reaction Status Date / Time codeine AdvReac Gastrointestinal Verified 08/31/17 22:54 Upset oxycodone [Oxycodone] AdvReac Gastrointestinal Verified 08/31/17 22:55 Upset All systems ED: reviewed and negative except as stated. Review of Systems: As Per HPI Constitutional: Denies: fever, chills Cardiovascular: Reports: chest pain, palpitations, edema. Denies: dyspnea on exertion Respiratory: Reports: cough, wheezes. Denies: dyspnea, sputum production Gastrointestinal: Denies: nausea, vomiting Genitourinary: Denies: urgency, dysuria Musculoskeletal: Denies: back pain Past Medical History - Past Medical History Attestation: Yes The following information was validated with the patient. Medical history: Reports: COPD, diabetes Surgical history: Reports: Psychiatric history: Reports: no psych history - Social History Smoking Status: Former smoker Smokeless Tobacco Status: No Alcohol use: Reports: none Drug use: Reports: none Physical Exam CONSTITUTIONAL: Well-appearing; well-nourished; A&O X 3, in no apparent distress. Vitals within normal limits. HEAD: Normocephalic; atraumatic EYES: PERRL, no scleral icterus NOSE: The nose is normal in appearance without rhinorrhea NECK: No JVD or distended neck veins RESP: Wheezes throughout all lung [place], no rhonchi or rales CARD: Irregular rhythm and rate, without murmurs, rub or gallop ABD: Non-distended; non-tender, soft, without rigidity, rebound or guarding,no pulsatile mass CHEST: No pain with palpation SKIN: Normal for age and race; warm and dry without diaphoresis ; no apparent lesions EXTREMITIES: Pulses are 2 plus and equal times 4 extremities, positive for peripheral edema 2+ pitting and no calf muscle pain - General Limitations: no limitations General appearance: alert, in no apparent distress Course Course Narrative: Patient will undergo evaluation for palpitations with EKG and cardiac workup as well as her chest pain. She received a full dose of aspirin. She denies any chest symptoms at this time. She does sound very wheezy on exam however her oxygen saturation is normal. Discussed that we will treat her for COPD exacerbation at this time with steroids and breathing treatments. We will also send off BNP given her edema in her lower extremities even though she is denying any dyspnea. Patient will most likely need to come in due to her symptoms of intermittent chest pain, wheezing and her her regular rhythm. Her EKG mainly shows a sinus arrhythmia with a rate that is mostly in the 80s but occasionally jumping up to the low 100s. Vital Signs Temperature 97.8 F 07/28/18 21:35 Pulse Rate 102 07/28/18 21:35 Respiratory Rate 19 07/28/18 21:35 Blood Pressure 157/92 07/28/18 21:35 O2 Sat by Pulse Oximetry 96 07/28/18 21:35 Temperature 97.8 F 07/28/18 21:35 Pulse Rate 102 07/28/18 21:35 Respiratory Rate 14 07/28/18 22:11 Blood Pressure 157/92 07/28/18 21:35 O2 Sat by Pulse Oximetry 100 07/28/18 22:11 Oxygen Delivery Oxygen Delivery Room Air Medical Decision Making - Medical Records Medical records reviewed: Yes I reviewed the patient's medical records. - Lab Data Lab results reviewed: Yes I reviewed the patient's lab results. Result diagrams: 07/28/18 22:01 07/28/18 22:01 Lab Results 07/28/18 07/28/18 Range/Units 21:54 22:01 WBC 9.4 (4.3-11.1) K/mcL RBC 4.57 (3.82-4.97) M/mcL Hgb 13.1 (11.5-15.4) g/dL Hct 39.7 (35.3-44.9) % MCV 86.9 (83.0-100.0) fL MCH 28.7 (28.0-33.3) pg MCHC 33.0 (31.6-35.5) g/dL RDW 13.0 (11.5-14.5) % Plt Count 304 (140-400) K/mcL MPV 9.8 (9.4-12.4) fL Immature Gran % 0.6 (0-4) % Seg Neutrophils % 72.4 % Lymphocytes % 14.9 % Monocytes % 9.2 % Eosinophils % 2.5 % Basophils % 0.4 % Neutrophils # 6.8 (1.6-8.9) K/mcL Lymphocytes # 1.4 (0.6-4.6) K/mcL Monocytes # 0.9 (0.0-1.3) K/mcL Eosinophils # 0.2 (0.0-0.6) K/mcL Basophils # 0.0 (0.0-0.2) K/mcL Urine Color Yellow (Yellow) Urine Clarity Clear (Clear) Urine pH 6.5 (5.0-8.0) pH Units Ur Specific Bland 1.013 (1.010-1.025) Urine Protein Negative (Neg-Trace) mg/dL Urine Glucose (UA) 100 H (Normal) mg/dL Urine Ketones Negative (Negative) mg/dL Urine Blood Negative (Negative) Urine Nitrite Negative (Negative) Urine Bilirubin Negative (Negative) Urine Urobilinogen Normal (Normal) mg/dL Ur Leukocyte Esterase Negative (Negative) Ur Culture Indicated? NO (NO) - Radiology Data Radiology results reviewed: Yes I reviewed the patient's radiology results. Chest X-Ray 07/28/18 21:33 IMPRESSION: 1. No radiographic evidence of acute cardiopulmonary process. 2. Findings suggestive of COPD. D/ / Bernard Crawford MD / Bernard Crawford MD Interpreting Provider: Bernard Crawford MD - EKG Data EKG #1 EKG attestation: Yes I reviewed and interpreted this EKG. EKG results narrative: NoEKG dated on done at 21:36 shows sinus arrhythmia at a rate of 89 bpm. Normal axis. Intervals within normal limits, except for increased VA interval. No signs of ST elevation, ST depression or Q waves present. Patient does have occasional PVC. Attestation Statement - Attestation Attestation: I, Chava Kam DO, examined this patient [id number] and my medical decision-making was reviewed with Dr. Cristopher Rodriguez, Resident Physician. I agree with the documented findings, disposition and treatment plan as described except to the extent set forth below. Please see my progress notes for details.
[2018-07-28 22:27] LABS: INR 0.9; Prothrombin Time 10.6 Seconds (9.4-12.1)
[2018-07-28 22:29] LABS: Activated Partial Thrombo Time 30.8 Seconds (26.0-36.0)
[2018-07-28 22:39] LABS: BUN/Creatinine Ratio 19 (6-26); Blood Urea Nitrogen 16 mg/dL (8-23); Calcium 9.1 mg/dL (8.6-10.3); Carbon Dioxide 23 mEq/L (23-29); Chloride 99 mEq/L (98-107); Glucose 282 mg/dL (70-105); Magnesium 1.9 mg/dL (1.6-2.6); Osmolality,Calculated 283 (280-300); Potassium 3.5 mEq/L (3.5-5.1); Sodium 131 mEq/L (136-145); Troponin I < 0.03 ng/mL (< 0.04); eGFR For Non-African Americans > 60 (> 60)
--- NOTE | 2018-07-28 22:52 | Emergency Department Note ---
Disposition Clinical Impression: Palpitation, Sinus arrhythmia, COPD exacerbation Chest pain Qualifiers: Chest pain type: unspecified Qualified Code(s): R07.9 - Chest pain, unspecified Disposition: Admitted As Inpatient Condition: Fair Referrals: NONE,PCP [Primary Care Provider] - Forms: ED Satisfaction Letter Time of Disposition: 22:54 General Adult HPI - General Chief complaint: ED Chest Pain Stated complaint: High Blood Sugar Time Seen by Provider: 07/28/18 21:32 Source: patient, EMS Mode of arrival: EMS Limitations: no limitations - History of Present Illness Pain Scale: 0 - Related Data Home Medications Medication Instructions Recorded Confirmed Albuterol Sulfate [Ventolin Hfa] 2 puff IH Q4H PRN 10/29/16 04/05/18 Alendronate Sodium [Fosamax] 70 mg PO QWEEK 10/29/16 04/05/18 Hydroxychloroquine [Plaquenuil] 300 mg PO DAILY 10/29/16 04/05/18 Leflunomide [Arava] 20 mg PO DAILY 10/29/16 04/05/18 Metoprolol XL (24 HR) Succ [Toprol 25 mg PO DAILY 10/29/16 04/05/18 Xl] Pravastatin Sodium [Pravachol] 80 mg PO DAILY 10/29/16 04/05/18 glipiZIDE [Glucotrol] 15 mg PO QAM 04/18/17 04/05/18 Budesonide/Formoterol 160/4.5 2 puff IH BID 04/05/18 04/05/18 [Symbicort 160/4.5] Furosemide [Lasix] 20 mg PO DAILY 04/05/18 04/05/18 Liraglutide [Victoza 2-Patrice] 1.2 mg SQ DAILY 04/05/18 04/05/18 glipiZIDE [Glucotrol] 10 mg PO QPM 04/05/18 04/05/18 Allergies Allergy/AdvReac Type Severity Reaction Status Date / Time codeine AdvReac Gastrointestinal Verified 08/31/17 22:54 Upset oxycodone [Oxycodone] AdvReac Gastrointestinal Verified 08/31/17 22:55 Upset Constitutional: Denies: fever, chills Cardiovascular: Reports: chest pain, palpitations, edema. Denies: dyspnea on exertion Respiratory: Reports: cough, wheezes. Denies: dyspnea, sputum production Gastrointestinal: Denies: nausea, vomiting Genitourinary: Denies: urgency, dysuria Musculoskeletal: Denies: back pain Past Medical History - Past Medical History Medical history: Reports: COPD, diabetes Surgical history: Reports: Psychiatric history: Reports: no psych history - Social History Smoking Status: Former smoker Smokeless Tobacco Status: No Alcohol use: Reports: none Drug use: Reports: none Physical Exam - General Limitations: no limitations General appearance: alert, in no apparent distress Course Vital Signs Temperature 97.8 F 07/28/18 21:35 Pulse Rate 102 07/28/18 21:35 Respiratory Rate 19 07/28/18 21:35 Blood Pressure 157/92 07/28/18 21:35 O2 Sat by Pulse Oximetry 96 07/28/18 21:35 Temperature 97.8 F 07/28/18 21:35 Pulse Rate 104 07/28/18 22:44 Respiratory Rate 20 07/28/18 22:44 Blood Pressure 133/56 07/28/18 22:44 O2 Sat by Pulse Oximetry 95 07/28/18 22:44 Oxygen Delivery Oxygen Delivery Room Air Medical Decision Making - Lab Data Result diagrams: 07/28/18 22:01 07/28/18 22:01 Lab Results 07/28/18 07/28/18 07/28/18 Range/Units 21:54 22:01 22:01 WBC (4.3-11.1) K/mcL RBC (3.82-4.97) M/mcL Hgb (11.5-15.4) g/dL Hct (35.3-44.9) % MCV (83.0-100.0) fL MCH (28.0-33.3) pg MCHC (31.6-35.5) g/dL RDW (11.5-14.5) % Plt Count (140-400) K/mcL MPV (9.4-12.4) fL Immature Gran % (0-4) % Seg Neutrophils % % Lymphocytes % % Monocytes % % Eosinophils % % Basophils % % Neutrophils # (1.6-8.9) K/mcL Lymphocytes # (0.6-4.6) K/mcL Monocytes # (0.0-1.3) K/mcL Eosinophils # (0.0-0.6) K/mcL Basophils # (0.0-0.2) K/mcL PT 10.6 (9.4-12.1) Seconds INR 0.9 APTT 30.8 (26.0-36.0) Seconds Sodium (136-145) mEq/L Potassium (3.5-5.1) mEq/L Chloride (98-107) mEq/L Carbon Dioxide (23-29) mEq/L BUN (8-23) mg/dL Creatinine (0.60-1.20) mg/dL Est GFR ( Amer) (> 60) Est GFR (Non-Af Amer) (> 60) BUN/Creatinine Ratio (6-26) Glucose (70-105) mg/dL Calculated Osmolality (280-300) Calcium (8.6-10.3) mg/dL Magnesium (1.6-2.6) mg/dL Troponin I (< 0.04) ng/mL B-Natriuretic Peptide 94 (Less than 100) pg/mL Urine Color Yellow (Yellow) Urine Clarity Clear (Clear) Urine pH 6.5 (5.0-8.0) pH Units Ur Specific [place] 1.013 (1.010-1.025) Urine Protein Negative (Neg-Trace) mg/dL Urine Glucose (UA) 100 H (Normal) mg/dL Urine Ketones Negative (Negative) mg/dL Urine Blood Negative (Negative) Urine Nitrite Negative (Negative) Urine Bilirubin Negative (Negative) Urine Urobilinogen Normal (Normal) mg/dL Ur Leukocyte Esterase Negative (Negative) Ur Culture Indicated? NO (NO) 07/28/18 07/28/18 Range/Units 22:01 22:01 WBC 9.4 (4.3-11.1) K/mcL RBC 4.57 (3.82-4.97) M/mcL Hgb 13.1 (11.5-15.4) g/dL Hct 39.7 (35.3-44.9) % MCV 86.9 (83.0-100.0) fL MCH 28.7 (28.0-33.3) pg MCHC 33.0 (31.6-35.5) g/dL RDW 13.0 (11.5-14.5) % Plt Count 304 (140-400) K/mcL MPV 9.8 (9.4-12.4) fL Immature Gran % 0.6 (0-4) % Seg Neutrophils % 72.4 % Lymphocytes % 14.9 % Monocytes % 9.2 % Eosinophils % 2.5 % Basophils % 0.4 % Neutrophils # 6.8 (1.6-8.9) K/mcL Lymphocytes # 1.4 (0.6-4.6) K/mcL Monocytes # 0.9 (0.0-1.3) K/mcL Eosinophils # 0.2 (0.0-0.6) K/mcL Basophils # 0.0 (0.0-0.2) K/mcL PT (9.4-12.1) Seconds INR APTT (26.0-36.0) Seconds Sodium 131 L (136-145) mEq/L Potassium 3.5 (3.5-5.1) mEq/L Chloride 99 (98-107) mEq/L Carbon Dioxide 23 (23-29) mEq/L BUN 16 (8-23) mg/dL Creatinine 0.84 (0.60-1.20) mg/dL Est GFR ( Amer) > 60 (> 60) Est GFR (Non-Af Amer) > 60 (> 60) BUN/Creatinine Ratio 19 (6-26) Glucose 282 H (70-105) mg/dL Calculated Osmolality 283 (280-300) Calcium 9.1 (8.6-10.3) mg/dL Magnesium 1.9 (1.6-2.6) mg/dL Troponin I < 0.03 (< 0.04) ng/mL B-Natriuretic Peptide (Less than 100) pg/mL Urine Color (Yellow) Urine Clarity (Clear) Urine pH (5.0-8.0) pH Units Ur Specific [place] (1.010-1.025) Urine Protein (Neg-Trace) mg/dL Urine Glucose (UA) (Normal) mg/dL Urine Ketones (Negative) mg/dL Urine Blood (Negative) Urine Nitrite (Negative) Urine Bilirubin (Negative) Urine Urobilinogen (Normal) mg/dL Ur Leukocyte Esterase (Negative) Ur Culture Indicated? (NO) Attestation Statement - Attestation Attestation: I, Chava Kam DO, examined this patient [id number] and my medical decision-making was reviewed with Dr. Cristopher Rodriguez, Resident Physician. I agree with the documented findings, disposition and treatment plan as described except to the extent set forth below. Please see my progress notes for details. 78-year-old female presents emergency room with complaint of palpitations and shortness of breath. Patient had initial glucoses stable home but was elevated and transit. Patient denies any chest pain, shortness breath, fevers, chills. Denies any nausea vomiting or diarrhea. Denies any headache or vision change. Currently denying any falls trauma or injury. During transport the patient fluctuations in her heart rate from 80 up to 130. Vital signs otherwise stable. Patient is alert she is oriented she speaking in full sentences. She does not describe any other symptoms or issue. Lungs are clear to auscultation. Heart is irregular with what appears to be a sinus arrhythmia. Abdomen is soft nontender nondistended. No pulsatile masses or lesions noted at this point. Patient is otherwise stable. Extremities are normal. Patient has no signs of pitting edema or swelling. Patient moves all 4 of her extremities without any difficulty. Vital signs in presentation are most consistent with pulmonary related issue. She does not describe any active chest pain or symptoms. All she is describing is palpitations and fluttering in her chest wall. CBC chemistry troponin and BNP along with electrolyte will be collected. Urinalysis chest x-ray will be established. Breathing treatments and steroids will be given. Disposition pending full workup and treatment course. See detailed documentation the physical exam, medical intervention, medical decision-making and disposition in the resident physician's note. No critical care provider the patient treatment course at this time. [id number] Patient has stable presentation this time. EKG was reviewed. Troponin and BNP are unremarkable. Chest x-ray shows stable presentation with no infection. Symptoms are resolved or become better with the breathing treatments and steroids. Patient is resting in the bed at this time. Patient will be admitted for symptomatic COPD exacerbation. The hospitalist Dr. Villagomez reviewed the case. No other recommendations or concerns at this time. Patient has no other acute etiology noted this point. Patient will be admitted for symptomatically control management and observation for cardiac arrhythmia. Patient does not show any acute signs of atrial fibrillation blood thinners and stabilization are not required. Patient will be monitored here in the emergency department admission process is completed
[2018-07-29] MEDS ORDERED: Naloxone 0.4 MG/ML INJ IVP PRN (08:10)
[2018-07-29] MEDS ORDERED: traMADol 50 MG TABLET PO PRN (08:10)
[2018-07-29] MEDS ORDERED: D5% in Water 1,000 ML IVC PRN (08:15)
[2018-07-29] MEDS ORDERED: *HR* Dextrose 50 % in Water (Syg) 50 ML SYRINGE IVP PRN (08:15)
[2018-07-29] MEDS ORDERED: Dextrose Gel 15 GM/37.5 ML TUBE PO PRN ×2 (08:15)
[2018-07-29 09:47] LABS: Hematocrit 36.4 % (35.3-44.9); Hemoglobin 12.3 g/dL (11.5-15.4); Mean Corpuscular HGB Conc 33.8 g/dL (31.6-35.5); Mean Corpuscular Hemoglobin 29.1 pg (28.0-33.3); Mean Corpuscular Volume 86.3 fL (83.0-100.0); Mean Platelet Volume 9.8 fL (9.4-12.4); Platelet Count 305 K/mcL (140-400); Red Blood Count 4.22 M/mcL (3.82-4.97); Red Cell Distribution Width 13.2 % (11.5-14.5)
[2018-07-29] MEDS: Furosemide 20 MG TABLET PO SCH (10:15)
[2018-07-29] MEDS: Azithromycin 500 MG in D5% in Water 250 ML IVPB SCH (10:15)
[2018-07-29] MEDS: Metoprolol XL (24 HR) Succ 25 MG TAB.ER.24H PO SCH (10:15)
[2018-07-29 10:16] LABS: BUN/Creatinine Ratio 18 (6-26); Blood Urea Nitrogen 16 mg/dL (8-23); Calcium 8.9 mg/dL (8.6-10.3); Carbon Dioxide 23 mEq/L (23-29); Chloride 101 mEq/L (98-107); Glucose 392 mg/dL (70-105); Osmolality,Calculated 291 (280-300); Phosphorous 3.2 mg/dL (2.7-4.5); Potassium 4.5 mEq/L (3.5-5.1); Sodium 132 mEq/L (136-145); eGFR For Non-African Americans > 60 (> 60)
[2018-07-29] MEDS: Insulin DETEMIR 100 UNIT/ML X5UNITS SQ SCH ×2 (10:16→22:07)
--- NOTE | 2018-07-29 10:18 | Internal Med History&Physical ---
Date of Encounter: 07/29/18 Time of Encounter: 10:17 Internal Medicine - H&P: HPI Chief complaint: Shortness of breath and palpitation. Plans for Post Hospital Care: Home History of present illness: Ms. Barber is a 78 year old female past medical history of COPD, diabetes and rheumatoid Arthritis. Patient presented to the ED due to palpitations and shortness of breath. She reports that yesterday evening she started having palpitation which she describes as her heart raising and feeling her heart beat on her fingers and her throat. she denies chest pain, but reported feeling short of breath. Patient also reported having increase cough and yellowish sputum production for about a week. denies fever or chills. In the ED patient was found to be bronchospastic, managed with nebs plus steroids with resolution of her symptoms. Hospitalist team called for further management. Past Med Surg Social Fam HX - Past Medical History Medical history: COPD, diabetes Psychiatric history: no psych history - Past Surgical History Surgical History: , hip replacement Additional surgical history: TUBAL LIGATION. L hip - Social History Smoking Status: Former smoker Smokeless Tobacco Status: No Alcohol use: none Drug use: none - Family History Father Hx Family Cardiac Disorders: Yes (pacemaker) Mother Hx Family Cardiac Disorders: Yes (heart problems) Hx Family Cancer: Yes (liver) Internal Medicine - H&P: Meds Albuterol Sulfate [Ventolin Hfa] 2 puff IH Q4H PRN 10/29/16 [History] Alendronate Sodium [Fosamax] 70 mg PO QWEEK 10/29/16 [History] Hydroxychloroquine [Plaquenuil] 300 mg PO DAILY 10/29/16 [History] Leflunomide [Arava] 20 mg PO DAILY 10/29/16 [History] Metoprolol XL (24 HR) Succ [Toprol Xl] 25 mg PO DAILY 10/29/16 [History] Pravastatin Sodium [Pravachol] 80 mg PO DAILY 10/29/16 [History] glipiZIDE [Glucotrol] 15 mg PO QAM 04/18/17 [History] Budesonide/Formoterol 160/4.5 [Symbicort 160/4.5] 2 puff IH BID 04/05/18 [History] Furosemide [Lasix] 20 mg PO DAILY 04/05/18 [History] Liraglutide [Victoza 2-Patrice] 1.2 mg SQ DAILY 04/05/18 [History] glipiZIDE [Glucotrol] 10 mg PO QPM 04/05/18 [History] Allergy/AdvReac Type Severity Reaction Status Date / Time codeine AdvReac Gastrointestinal Verified 08/31/17 22:54 Upset oxycodone [Oxycodone] AdvReac Gastrointestinal Verified 08/31/17 22:55 Upset All Systems PM: A 10-system review of systems was performed and is negative for pertinent findings except as documented above in the HPI. - Constitutional Constitutional: no chills, no fever(s), no weakness - EENT Eyes: no blurry vision Nose, mouth and throat: no bleeding gums - Cardiovascular Cardiovascular ROS IM: dyspnea, palpitations, no chest pain, no dyspnea on exertion, no lightheadedness, no orthopnea, no paroxysmal nocturnal dyspnea, no syncope - Respiratory Respiratory: cough, wheezing, chest congestion, excessive phlegm production, change in phlegm color, no pain on inspiration, no pain with cough - Gastrointestinal Gastrointestinal: no abdominal pain, no dyspepsia, no dysphagia, no nausea, no vomiting - Genitourinary Genitourinary: no dysuria, no urinary frequency, no urinary urgency - Musculoskeletal Musculoskeletal ROS IM: no muscle weakness - Integumentary Integumentary IM: no erythema, no rash - Neurological Neurological ROS: no headache(s), no memory loss - Psychiatric Psychiatric: no anxiety, no hopelessness, no irritability - Endocrine Endocrine IM: no polydipsia, no polyphagia, no polyuria - Hematologic/Lymphatic Hematologic/Lymphatic: no lymphadenopathy - Allergic/Immunologic Allergic/Immunologic: no GI upset with certain foods Additional comments: Rest of a 10 review of system negative. - Constitutional Vitals: Temp Pulse Resp BP Pulse Ox 97.9 F 85 16 134/74 94 07/29/18 08:14 07/29/18 08:14 07/29/18 08:14 07/29/18 08:14 07/29/18 08:14 Exam: Vitals: Reviewed. General: Alert and oriented x4. In mild distress due to shortness of breath. Skin: Normal color, no rash, no lesions. HEENT: EOM, pupils equal, round and reactive. Cardiovascular: RRR, normal S1 & S2, no rubs, murmurs or gallops. Lungs: mild scattered b/l wheezes, no crackles. Abdomen: Obese, Soft, non-tender, no rigidity. Extremities: No deformity, no edema or tenderness, no joint swelling or clubbing. Neurological:Normal cognition and motor skills. Rest of the physical exam is non contributory Internal Med - H&P Results - Labs CBC & Chem 7: 07/29/18 09:20 07/28/18 22:01 Labs: Short CBC 07/28/18 07/29/18 Range/Units 22:01 09:20 WBC 9.4 7.1 (4.3-11.1) K/mcL Hgb 13.1 12.3 (11.5-15.4) g/dL Hct 39.7 36.4 (35.3-44.9) % Plt Count 304 305 (140-400) K/mcL Neutrophils # 6.8 (1.6-8.9) K/mcL BMP 07/28/18 22:01 Sodium 131 L Potassium 3.5 Chloride 99 Carbon Dioxide 23 BUN 16 Creatinine 0.84 Glucose 282 H Calcium 9.1 Cardiac Enzymes 07/28/18 Range/Units 22:01 Troponin I < 0.03 (< 0.04) ng/mL Urine 07/28/18 Range/Units 21:54 Urine Color Yellow (Yellow) Urine Clarity Clear (Clear) Urine pH 6.5 (5.0-8.0) pH Units Ur Specific [place] 1.013 (1.010-1.025) Urine Protein Negative (Neg-Trace) mg/dL Urine Glucose (UA) 100 H (Normal) mg/dL - Impressions ITS Impressions Chest X-Ray 07/28/18 21:33 IMPRESSION: 1. No radiographic evidence of acute cardiopulmonary process. 2. Findings suggestive of COPD. D/ / Bernard Crawford MD / Bernard Crawford MD Interpreting Provider: Bernard Crawford MD - Diagnostic Studies Chest x-ray Status: image reviewed by me (No acute abnormalities.) - Assessment and plan (1) COPD exacerbation Current Visit: Yes Status: Acute Assessment and plan: Bilateral scattered expiratory wheezing. Able to speak in full sentences. Plan Started on bronchodilators Q4RT scheduled, continue Symbicort. solu-medrol 125mg/IV x1 Solu-Medrol 40mg/IV Q8HRs started on empiric antibiotics coverage with azithromycin 500mg/IV daily Sputum culture and gram stain Respiratory panel O2 by nasal cannula, titrate for O2Sat >92% (2) DVT prophylaxis Current Visit: No Status: Chronic Assessment and plan: Heparin 5000 units subcutaneous twice a day. (3) Diabetes mellitus Current Visit: No Status: Chronic Assessment and plan: Carbs controlled diet. Liver 10 units twice a day, lispro 4 units before meals plus low-dose sliding scale. 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 Continue metoprolol 25 mg daily, and furosemide 20 mg daily by mouth. (5) Rheumatoid arthritis Current Visit: No Status: Chronic Assessment and plan: We will resume home medication. Hydroxychloroquine 300 mg by mouth daily. Qualifiers: Rheumatoid arthritis location: unspecified site Rheumatoid factor presence: unspecified presence Qualified Code(s): M06.9 - Rheumatoid arthritis, unspecified - Time Spent With Patient Total time spent is greater than 50% in coordination of care (as documented) at patient's floor/unit and/or counseling patient: Greater than 35 minutes (45)
[2018-07-29] MEDS: Budesonide/Formoterol 80/4.5 MDI IH SCH ×2 (11:47→19:49)
[2018-07-29] MEDS: Ipratropium/Albuterol Neb 3 ML IH SCH ×4 (11:49→19:49)
[2018-07-29] MEDS: Insulin LISPRO 300 UNITS/3 ML VIAL SQ SCH ×4 (12:50→17:45)
[2018-07-29 14:28] LABS: Adenovirus Not Detected (Not Detect); Bordetella Pertussis Not Detected (Not Detect); Chlamydophila pneumoniae Not Detected (Not Detect); Coronavirus 229E Not Detected (Not Detect); Coronavirus HKU1 Not Detected (Not Detect); Coronavirus NL63 Not Detected (Not Detect); Coronavirus OC43 Not Detected (Not Detect); Human Metapneumovirus Not Detected (Not Detect); Human Rhinovirus/Enterovirus Not Detected (Not Detect); Influenza A Subtype 2009 H1 Not Detected (Not Detect); Influenza A Untypeable Not Detected (Not Detect); Influenza B Not Detected (Not Detect); Mycoplasma pneumoniae Not Detected (Not Detect); Parainfluenza Virus 1 Not Detected (Not Detect); Parainfluenza Virus 2 Not Detected (Not Detect); Parainfluenza Virus 3 Not Detected (Not Detect); Parainfluenza Virus 4 Not Detected (Not Detect); Respiratory Syncytial Virus Not Detected (Not Detect)
[2018-07-29] MEDS: MethylPREDNISolone 40 MG/ML VIAL IVP SCH (17:45)
[2018-07-29] MEDS: *HR* Heparin 5,000 UNIT/ML VIAL SQ SCH (17:51)
[2018-07-30] MEDS: Ipratropium/Albuterol Neb 3 ML IH SCH ×4 (00:09→11:15)
[2018-07-30] MEDS: MethylPREDNISolone 40 MG/ML VIAL IVP SCH ×2 (00:31→10:31)
[2018-07-30] MEDS: *HR* Heparin 5,000 UNIT/ML VIAL SQ SCH (06:07)
[2018-07-30] MEDS: Budesonide/Formoterol 80/4.5 MDI IH SCH (07:35)
--- NOTE | 2018-07-30 10:28 | Discharge Summary ---
<Meagan Garcia P - Last Filed: 07/30/18 14:12> - NOTES TO OUTPATIENT PROVIDER Notes to Outpatient Provider: The patient will follow-up with primary care provider within a week. We have increased the dose of metoprolol 50 MG daily . She will take Augmentin 875 MG twice a day for 5 days. Date of Encounter: 07/30/18 Time of Encounter: 10:15 - Discharge Diagnosis (1) Palpitation Priority: Primary Status: Resolved (2) COPD exacerbation Priority: Primary Status: Chronic (3) Diabetes Priority: Secondary Status: Chronic Qualifiers: Diabetes mellitus type: type 2 Qualified Code(s): E11.9 - Type 2 diabetes mellitus without complications (4) DVT prophylaxis Priority: Primary Status: Suspected Hospital course: Ms. Barber is a 78 year old female female past medical history of COPD, diabetes and rheumatoid Arthritis presented to the ED due to palpitations and shortness of breath. She reports that yesterday evening she started having palpitation which she describes as her heart raising and feeling her heart beat on her fingers and her throat. she denies any chest pain, but reported feeling short of breath. EKG: Sinus rhythm, no ST-T changes. X-ray chest done in ED: No acute cardiopulmonary process/ suggestive of COPD. The patient was admitted for close cardiac monitoring. She got IV Solu Medrol and IV antibiotic Azithromycin while she was in hospital and getting better. EKG done in in-patient showed sinus arrhythma and PVCs.We have increased the dose of Metoprolol 50 mg daily. We are sending her home as she has been symptomatically improved, hemodynamically stable. She will follow-up with her primary care provider within a week. We will prescribe Augmentin PO x 5 days for her COPD exacerbation. - Time Spent with Patient Total time spent providing and/or coordinating discharge services: - Discharge Medications Prescriptions: Amoxicillin/Clavulanate [Augmentin] 875 mg PO BIDWM #10 tablet Home Medications: RX: Albuterol Sulfate [Ventolin Hfa] 2 puff IH Q4H PRN 10/29/16 [History] RX: Alendronate Sodium [Fosamax] 70 mg PO QWEEK 10/29/16 [History] RX: Hydroxychloroquine [Plaquenuil] 300 mg PO DAILY 10/29/16 [History] RX: Leflunomide [Arava] 20 mg PO DAILY 10/29/16 [History] RX: Pravastatin Sodium [Pravachol] 80 mg PO DAILY 10/29/16 [History] RX: glipiZIDE [Glucotrol] 15 mg PO QAM 04/18/17 [History] RX: Budesonide/Formoterol 160/4.5 [Symbicort 160/4.5] 2 puff IH BID 04/05/18 [History] RX: Furosemide [Lasix] 20 mg PO DAILY 04/05/18 [History] RX: glipiZIDE [Glucotrol] 10 mg PO QPM 04/05/18 [History] Amoxicillin/Clavulanate [Augmentin] 875 mg PO BIDWM #10 tablet 07/30/18 [Rx] RX: Metoprolol XL (24 HR) Succ [Toprol Xl] 50 mg PO DAILY #0 07/30/18 [Rx] Allergies/Adverse Reactions: Allergy/AdvReac Type Severity Reaction Status Date / Time codeine AdvReac Gastrointestinal Verified 07/29/18 20:56 Upset oxycodone [Oxycodone] AdvReac Gastrointestinal Verified 07/29/18 20:56 Upset Date of admission: 07/28/18 23:01 Primary care physician: PCP NONE Consults: 07/30/18 09:13 Consult to Nurse Navigator [CONS] Routine Comment: COPD - Constitutional Vitals: Temp Pulse Resp BP Pulse Ox 97.8 F 99 18 133/74 97 07/30/18 07:26 07/30/18 07:26 07/30/18 07:38 07/30/18 07:26 07/30/18 07:38 General appearance: Present: A&O X 3, no acute distress, answers questions appropriately Exam: Vitals: Reviewed and stable. General: Alert and oriented x4. In mild distress due to shortness of breath. Skin: Normal color, no rash, no lesions. HEENT: EOM, pupils equal, round and reactive. Cardiovascular: RRR, normal S1 & S2, no rubs, murmurs or gallops. Lungs: mild scattered b/l wheezes, no crackles. Abdomen: Obese, Soft, non-tender, no rigidity. Extremities: No deformity, no edema or tenderness, no joint swelling or clubbing. Neurological:Normal cognition and motor skills. Rest of the physical exam is non contributory - Patient Status Disposition: Home, Self-Care Condition: Fair Functional capacity at discharge: uses cane/walker Overall status at discharge: patient is progressing back to baseline - Discharge Instructions Follow Up With: Tova Corado CNP [Advanced Practice Nurse] - 08/08/18 9:00 am - Diet and Activity Activity: resume usual activities as tolerated Diet: diabetic diet <Marques Hartley - Last Filed: 07/30/18 15:08> Date of Encounter: 07/30/18 - Discharge Diagnosis (1) Essential hypertension Status: Chronic (2) Diabetes mellitus Status: Chronic Qualifiers: Diabetes mellitus type: type 2 Diabetes mellitus half-way insulin use: without half-way use Diabetes mellitus complication status: with hyperglycemia Qualified Code(s): E11.65 - Type 2 diabetes mellitus with hyperglycemia (3) DVT prophylaxis Status: Chronic (4) Rheumatoid arthritis Status: Chronic Qualifiers: Rheumatoid arthritis location: unspecified site Rheumatoid factor presence: unspecified presence Qualified Code(s): M06.9 - Rheumatoid arthritis, unspecified (5) COPD exacerbation Status: Acute Hospital course: Ms. Barber is a 78 year old female - Time Spent with Patient Total time spent providing and/or coordinating discharge services: Date of admission: 07/28/18 23:01 Primary care physician: PCP NONE Consults: 07/30/18 09:13 Consult to Nurse Navigator [CONS] Routine Comment: COPD - Constitutional Vitals: Temp Pulse Resp BP Pulse Ox 97.6 F 81 18 140/82 93 07/30/18 10:51 07/30/18 10:51 07/30/18 11:16 07/30/18 10:51 07/30/18 11:16 - Attending Attestation I examined this patient and my medical decision-making was reviewed with the Resident Physician Dr. Garcia. I agree with the documented findings, disposition and treatment plan as described except to the extent set forth below. Ms. Barber is a 78 year old female past medical history of COPD, diabetes and rheumatoid Arthritis. Patient presented to the ED due to palpitations and shortness of breath. She did c/o cough with expectoration too. She was admitted in the hospital and placed her on IV steroids and empirical abx. Her symptoms improved. She is breathing comfortably on RA. Her EKG showed sinus arrythamia and few PVC's so increased her Metoprolol xl to 50mg. Gen: A, A, O x 3 Chest: Diminished BS b/l, mild wheezing, no crackles, no rales. Heart: S1S2+ RRR No murmurs
[2018-07-30] MEDS: Metoprolol XL (24 HR) Succ 25 MG TAB.ER.24H PO SCH (10:31)
[2018-07-30] MEDS: Furosemide 20 MG TABLET PO SCH (10:32)
[2018-07-30] MEDS: Insulin LISPRO 300 UNITS/3 ML VIAL SQ SCH ×2 (10:34→10:35)
[2018-07-30] MEDS: Insulin DETEMIR 100 UNIT/ML X5UNITS SQ SCH (10:34)
[2018-07-30] MEDS: Azithromycin 500 MG in D5% in Water 250 ML IVPB SCH (10:36)
[2018-07-30 10:51] VITALS: BP 140/82
[2018-07-30] MEDS ORDERED: NON-FORMULARY MEDICATION 1 EACH EACH (Alendronate Sodium [Fosamax] 70 MG) PO SCH (11:00)
--- NOTE | 2018-07-30 17:37 | Electrocardiograph Report ---
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
[2018-07-30] MEDS ORDERED: *HR* GlipiZIDE 5 MG TABLET PO SCH (18:00)
--- NOTE | 2018-07-30 18:30 | Electrocardiograph Report ---
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
[2018-07-30] MEDS ORDERED: Budesonide/Formoterol 160/4.5 1 PUFF INH IH SCH (22:00)
[2018-07-31] MEDS ORDERED: *HR* GlipiZIDE 5 MG TABLET PO SCH (09:00)
[2018-07-31] MEDS ORDERED: NON-FORMULARY MEDICATION 1 EACH EACH PO SCH (09:00)
[2018-07-31] MEDS ORDERED: Metoprolol XL (24 HR) Succ 25 MG TAB.ER.24H PO SCH (09:00)
[2018-07-31] MEDS ORDERED: Furosemide 20 MG TABLET PO SCH (09:00)
[2018-07-31] MEDS ORDERED: NON-FORMULARY MEDICATION 1 EACH EACH (Pravastatin Sodium [Pravachol] 80 MG) PO SCH (09:00)
== END 2018-07-30 12:46 | disposition home or self-care (01) ==
LOC: 3BNU 21:29 → EMEROOARM 21:29 → SUATTDRO 23:01 → 3BNU 23:40
PROVIDERS: ADMIT Family Medicine; ATTEND Family Medicine

== ENCOUNTER 2019-03-30 22:31 | Inpatient (IN) ==
[2019-03-30] MEDS ORDERED: Ipratropium/Albuterol Neb 3 ML IH ONE (22:35)
[2019-03-30] MEDS ORDERED: methylPREDNISolone 125 MG/2 ML VIAL IVP ONE (22:35)
--- NOTE | 2019-03-30 22:54 | Emergency Department Note ---
Disposition Clinical Impression: Hyponatremia, Weakness, COPD exacerbation Disposition: Admitted As Inpatient Condition: Good Referrals: Raudel Soto MD [Primary Care Provider] - Forms: ED Satisfaction Letter Time of Disposition: 00:56 General Adult HPI - General Chief complaint: ED Shortness of Breath/Dyspnea Stated complaint: JOHN Time Seen by Provider: 03/30/19 22:34 Source: patient, family, EMS Mode of arrival: EMS Limitations: no limitations Nursing Notes Reviewed: Yes Vital Signs Reviewed: Yes - History of Present Illness HPI Narrative: 78-year-old female with significant past medical history of diabetes currently on glipizide along with COPD presenting to the emergency department with chief complaint of increased work of breathing and low sugar. Patient states she took her sugar at home and it was 160. She ate and then repeated her sugar and it was 140. Patient also states that she has had some increased work of breathing over the past few days. Denies any fevers, chest pain or abdominal pain. Denies any nausea, vomiting or urinary symptoms. Pain Scale: 0 - Related Data Home Medications Medication Instructions Recorded Confirmed Leflunomide [Arava] 20 mg PO DAILY 10/29/16 02/28/19 Pravastatin Sodium [Pravachol] 80 mg PO DAILY 10/29/16 02/28/19 Budesonide/Formoterol 160/4.5 2 puff IH BID 04/05/18 02/28/19 [Symbicort 160/4.5] Furosemide [Lasix] 20 mg PO DAILY 04/05/18 02/28/19 GlipiZIDE [Glucotrol] 10 mg PO BID 04/05/18 02/28/19 Denosumab [Prolia (For Outpatient 60 mg SQ [id number] 02/14/19 02/28/19 Infusion)] Albuterol Sulfate [Ventolin Hfa] 2 puff .ROUTE Q4H PRN 02/28/19 02/28/19 Previous Rx's Medication Instructions Recorded Metoprolol XL (24 HR) Succ [Toprol 50 mg PO DAILY #0 07/30/18 Xl] Allergies Allergy/AdvReac Type Severity Reaction Status Date / Time codeine AdvReac Gastrointestinal Verified 07/29/18 20:56 Upset oxycodone [Oxycodone] AdvReac Gastrointestinal Verified 07/29/18 20:56 Upset All systems ED: reviewed and negative except as stated. Constitutional: Denies: fever Eyes: Reports: as per HPI ENT ED: Reports: as per HPI Cardiovascular: Denies: chest pain Respiratory: Reports: cough, wheezes Gastrointestinal: Denies: nausea, vomiting Genitourinary: Reports: as per HPI Musculoskeletal: Reports: as per HPI Integumentary: Reports: as per HPI Neurological: Reports: as per HPI Psychiatric: Reports: as per HPI Endocrine: Reports: as per HPI Hematological/Lymphatic: Reports: as per HPI Allergic/Immunologic: Reports: as per HPI Past Medical History - Past Medical History Attestation: Yes The following information was validated with the patient. Medical history: Reports: COPD, diabetes, GERD, hypertension, RA Surgical history: Reports: , hip replacement Psychiatric history: Reports: no psych history - Social History Smoking Status: Current every day smoker Smokeless Tobacco Status: No Alcohol use: Reports: none Drug use: Reports: none Physical Exam - General Limitations: no limitations General appearance: alert, in no apparent distress - Head Head exam: atraumatic, normocephalic, normal inspection - Eye Eye exam: Absent: scleral icterus - ENT ENT exam: mucous membranes moist - Neck Neck exam: Present: full ROM - Chest Chest inspection: Present: symmetric chest wall rise - Respiratory Respiratory exam: Present: other (Expiratory wheezing) - Cardiovascular Cardiovascular exam: Present: regular rate, normal rhythm, normal heart sounds - Abdominal Exam Abdominal exam: Present: soft, Non-Tender. Absent: distention, guarding, rebound - Extremities Exam Extremities exam: Present: full ROM - Neurological Exam Neurological exam: Present: alert, oriented X3 - Psychiatric Psychiatric exam: Present: normal affect, normal mood - Skin Skin exam: Present: warm, intact Course Course Narrative: 78-year-old female presenting for low sugar and increased work of breathing. In the room she is alert and oriented 3 and hemodynamically stable. Physical e xam is significant for expiratory wheezing. Patient's glucose per EMS was within normal limits but she is on glipizide. At this time will obtain basic laboratory analysis, urine analysis along with an EKG and provide her with breathing treatments and steroids. Disposition pending. Patient agrees with this plan. - Reevaluation(s) Reevaluation #1: Patient laboratory analysis significant for hyponatremia 122. Troponin within normal limits. At this time patient remains alert and oriented 3 and hemodynamically stable. Patient breathing significantly better after DuoNeb nebs and steroids. At this time we will plan to admit the patient for COPD exac erbation, hyponatremia and weakness. Patient and daughter at bedside agree with this plan. I spoke with the hospitalist wig sales consultant Dr. Casas who agrees to accept the patient at this time. He would like a urine osmolality and urine sodium added. Vital Signs Temperature 98.4 F 03/30/19 22:38 Pulse Rate 86 03/30/19 22:38 Respiratory Rate 20 03/30/19 22:38 Blood Pressure 105/50 03/30/19 22:38 O2 Sat by Pulse Oximetry 92 03/30/19 22:38 Temperature 98.4 F 03/30/19 22:38 Pulse Rate 86 03/30/19 22:38 Respiratory Rate 16 03/30/19 23:58 Blood Pressure 105/50 03/30/19 22:38 O2 Sat by Pulse Oximetry 89 03/30/19 23:58 Oxygen Delivery Oxygen Delivery Room Air Medical Decision Making - Lab Data Result diagrams: 03/30/19 23:53 Lab Results 03/30/19 03/30/19 03/31/19 Range/Units 23:53 23:53 00:26 Sodium 122 L (136-145) mEq/L Potassium 3.5 (3.5-5.1) mEq/L Chloride 91 L (98-107) mEq/L Carbon Dioxide 22 L (23-29) mEq/L BUN 18 (8-23) mg/dL Creatinine 0.85 (0.60-1.20) mg/dL Est GFR ( Amer) > 60 (> 60) Est GFR (Non-Af Amer) > 60 (> 60) BUN/Creatinine Ratio 21 (6-26) Glucose 160 H (70-105) mg/dL Calculated Osmolality 259 L (280-300) Calcium 8.6 (8.6-10.3) mg/dL Troponin I < 0.03 (< 0.04) ng/mL B-Natriuretic Peptide 213 H (Less than 100) pg/mL Urine Color Yellow (Yellow) Urine Clarity Clear (Clear) Urine pH 6.0 (5.0-8.0) pH Units Ur Specific [place] 1.018 (1.010-1.025) Urine Protein Negative (Neg-Trace) mg/dL Urine Glucose (UA) Normal (Normal) mg/dL Urine Ketones Negative (Negative) mg/dL Urine Blood Negative (Negative) Urine Nitrite Negative (Negative) Urine Bilirubin Small H (Negative) Urine Urobilinogen Normal (Normal) mg/dL Ur Leukocyte Esterase Negative (Negative) Ur Culture Indicated? NO (NO) - EKG Data EKG #1 EKG attestation: Yes I reviewed and interpreted this EKG. EKG results narrative: Sinus rhythm. 87 bpm. NE interval 171, QRS 91, QTC 437. No sign of acute ST segment elevation or ischemia. Compared to previous EKG completed on 07/30/2018 no significant changes noted Attestation Statement - Attestation Attestation: IDelbert Newman D.O., examined this patient and my medical decision-making was reviewed with the Resident Physician. I agree with the documented findings, disposition and treatment plan as described except to the extent set forth below.
--- NOTE | 2019-03-30 23:05 | Emergency Department Note ---
Disposition Clinical Impression: Hyponatremia, Weakness, COPD exacerbation Leukocytosis Qualifiers: Leukocytosis type: unspecified Qualified Code(s): D72.829 - Elevated white blood cell count, unspecified Disposition: Admitted As Inpatient Condition: Good Referrals: Raudel Soto MD [Primary Care Provider] - Forms: ED Satisfaction Letter Time of Disposition: 01:00 General Adult HPI - General Chief complaint: ED Shortness of Breath/Dyspnea Stated complaint: JOHN Time Seen by Provider: 03/30/19 22:34 Source: patient, family, EMS Mode of arrival: EMS Limitations: no limitations - History of Present Illness Pain Scale: 0 - Related Data Home Medications Medication Instructions Recorded Confirmed Leflunomide [Arava] 20 mg PO DAILY 10/29/16 02/28/19 Pravastatin Sodium [Pravachol] 80 mg PO DAILY 10/29/16 02/28/19 Budesonide/Formoterol 160/4.5 2 puff IH BID 04/05/18 02/28/19 [Symbicort 160/4.5] Furosemide [Lasix] 20 mg PO DAILY 04/05/18 02/28/19 GlipiZIDE [Glucotrol] 10 mg PO BID 04/05/18 02/28/19 Denosumab [Prolia (For Outpatient 60 mg SQ [id number] 02/14/19 02/28/19 Infusion)] Albuterol Sulfate [Ventolin Hfa] 2 puff .ROUTE Q4H PRN 02/28/19 02/28/19 Previous Rx's Medication Instructions Recorded Metoprolol XL (24 HR) Succ [Toprol 50 mg PO DAILY #0 07/30/18 Xl] Allergies Allergy/AdvReac Type Severity Reaction Status Date / Time codeine AdvReac Gastrointestinal Verified 07/29/18 20:56 Upset oxycodone [Oxycodone] AdvReac Gastrointestinal Verified 07/29/18 20:56 Upset Past Medical History - Past Medical History Medical history: Reports: COPD, diabetes, GERD, hypertension, RA Surgical history: Reports: , hip replacement Psychiatric history: Reports: no psych history - Social History Smoking Status: Current every day smoker Smokeless Tobacco Status: No Alcohol use: Reports: none Drug use: Reports: none Physical Exam - General Limitations: no limitations General appearance: alert, in no apparent distress Course Vital Signs Temperature 98.4 F 03/30/19 22:38 Pulse Rate 86 03/30/19 22:38 Respiratory Rate 20 03/30/19 22:38 Blood Pressure 105/50 03/30/19 22:38 O2 Sat by Pulse Oximetry 92 03/30/19 22:38 Temperature 98.4 F 03/30/19 22:38 Pulse Rate 86 03/30/19 22:38 Respiratory Rate 16 03/30/19 23:58 Blood Pressure 105/50 03/30/19 22:38 O2 Sat by Pulse Oximetry 89 03/30/19 23:58 Oxygen Delivery Oxygen Delivery Room Air Medical Decision Making - Lab Data Result diagrams: 03/30/19 23:53 03/30/19 23:53 Lab Results 03/30/19 03/30/19 03/30/19 Range/Units 23:53 23:53 23:53 WBC 24.2 H D (4.3-11.1) K/mcL RBC 4.12 (3.82-4.97) M/mcL Hgb 12.2 (11.5-15.4) g/dL Hct 35.6 (35.3-44.9) % MCV 86.4 (83.0-100.0) fL MCH 29.6 (28.0-33.3) pg MCHC 34.3 (31.6-35.5) g/dL RDW 13.2 (11.5-14.5) % Plt Count 264 (140-400) K/mcL MPV 9.6 (9.4-12.4) fL Immature Gran % 0.8 (0-4) % Seg Neutrophils % 96.0 % Lymphocytes % 4.0 % Monocytes % 3.1 % Eosinophils % 0.0 % Basophils % 0.6 % Neutrophils # 22.7 H (1.6-8.9) K/mcL Lymphocytes # 0.5 L (0.6-4.6) K/mcL Monocytes # 0.8 (0.0-1.3) K/mcL Eosinophils # 0.0 (0.0-0.6) K/mcL Basophils # 0.2 (0.0-0.2) K/mcL Sodium 122 L (136-145) mEq/L Potassium 3.5 (3.5-5.1) mEq/L Chloride 91 L (98-107) mEq/L Carbon Dioxide 22 L (23-29) mEq/L BUN 18 (8-23) mg/dL Creatinine 0.85 (0.60-1.20) mg/dL Est GFR ( Amer) > 60 (> 60) Est GFR (Non-Af Amer) > 60 (> 60) BUN/Creatinine Ratio 21 (6-26) Glucose 160 H (70-105) mg/dL Calculated Osmolality 259 L (280-300) Calcium 8.6 (8.6-10.3) mg/dL Troponin I < 0.03 (< 0.04) ng/mL B-Natriuretic Peptide 213 H (Less than 100) pg/mL Urine Color (Yellow) Urine Clarity (Clear) Urine pH (5.0-8.0) pH Units Ur Specific [place] (1.010-1.025) Urine Protein (Neg-Trace) mg/dL Urine Glucose (UA) (Normal) mg/dL Urine Ketones (Negative) mg/dL Urine Blood (Negative) Urine Nitrite (Negative) Urine Bilirubin (Negative) Urine Urobilinogen (Normal) mg/dL Ur Leukocyte Esterase (Negative) Ur Culture Indicated? (NO) 03/31/19 Range/Units 00:26 WBC (4.3-11.1) K/mcL RBC (3.82-4.97) M/mcL Hgb (11.5-15.4) g/dL Hct (35.3-44.9) % MCV (83.0-100.0) fL MCH (28.0-33.3) pg MCHC (31.6-35.5) g/dL RDW (11.5-14.5) % Plt Count (140-400) K/mcL MPV (9.4-12.4) fL Immature Gran % (0-4) % Seg Neutrophils % % Lymphocytes % % Monocytes % % Eosinophils % % Basophils % % Neutrophils # (1.6-8.9) K/mcL Lymphocytes # (0.6-4.6) K/mcL Monocytes # (0.0-1.3) K/mcL Eosinophils # (0.0-0.6) K/mcL Basophils # (0.0-0.2) K/mcL Sodium (136-145) mEq/L Potassium (3.5-5.1) mEq/L Chloride (98-107) mEq/L Carbon Dioxide (23-29) mEq/L BUN (8-23) mg/dL Creatinine (0.60-1.20) mg/dL Est GFR ( Amer) (> 60) Est GFR (Non-Af Amer) (> 60) BUN/Creatinine Ratio (6-26) Glucose (70-105) mg/dL Calculated Osmolality (280-300) Calcium (8.6-10.3) mg/dL Troponin I (< 0.04) ng/mL B-Natriuretic Peptide (Less than 100) pg/mL Urine Color Yellow (Yellow) Urine Clarity Clear (Clear) Urine pH 6.0 (5.0-8.0) pH Units Ur Specific [place] 1.018 (1.010-1.025) Urine Protein Negative (Neg-Trace) mg/dL Urine Glucose (UA) Normal (Normal) mg/dL Urine Ketones Negative (Negative) mg/dL Urine Blood Negative (Negative) Urine Nitrite Negative (Negative) Urine Bilirubin Small H (Negative) Urine Urobilinogen Normal (Normal) mg/dL Ur Leukocyte Esterase Negative (Negative) Ur Culture Indicated? NO (NO) Attestation Statement - Attestation Attestation: Antonio Newman D.O., examined this patient and my medical decision-making was reviewed with the Resident Physician. I agree with the documented findings, disposition and treatment plan as described except to the extent set forth below. 78-year-old female with a history of COPD, diabetes on glipizide who presents via EMS for multiple complaints. Report is that she checked her glucose today before eating it was 160 then after she ate it was 140. She also reports some increased shortness of breath over the last few days. She denies any chest pain at this point. No abdominal pain. No other complaints. General: Alert, no acute distress HENT: Normocephalic, Atraumatic Neck: No JVD Cardiovascular: Regular rate and rhythm. No appreciable murmurs Respiratory: Bilateral end expiratory wheezing Abdominal: Soft, non tender. No peritoneal findings Extremities: 1+ bilateral lower extremity pitting edema Neuro: Alert, answers questions appropriately, No focal deficits Skin: Warm, Dry Plan: EKG, chest x-ray, labs, DuoNeb treatments and Solu-Medrol. ED Procedure Note: EKG interpretation - I agree with the resident physician's documentation and interpretation of the patient's EKG. Sinus rhythm with a rate of 87 beats or minute. Normal axis. Normal intervals. Normal R-wave progression. No gross ST elevations or depressions. No acute ischemic findings. CXR and labs reviewed. Noted to have a leukocytosis without a source. Patient has received duonebs and solumedrol. Patient is admitted to the hospital[facility].
[2019-03-31 00:07] LABS: Basophils % 0.6 %; Hematocrit 35.6 % (35.3-44.9); Hemoglobin 12.2 g/dL (11.5-15.4); Immature Granulocytes % 0.8 % (0-4); Lymphocytes # 0.5 K/mcL (0.6-4.6); Mean Corpuscular HGB Conc 34.3 g/dL (31.6-35.5); Mean Corpuscular Hemoglobin 29.6 pg (28.0-33.3); Mean Corpuscular Volume 86.4 fL (83.0-100.0); Mean Platelet Volume 9.6 fL (9.4-12.4); Monocytes % 3.1 %; Neutrophils # 22.7 K/mcL (1.6-8.9); Platelet Count 264 K/mcL (140-400); Red Blood Count 4.12 M/mcL (3.82-4.97); Red Cell Distribution Width 13.2 % (11.5-14.5)
[2019-03-31 00:27] LABS: BUN/Creatinine Ratio 21 (6-26); Blood Urea Nitrogen 18 mg/dL (8-23); Calcium 8.6 mg/dL (8.6-10.3); Carbon Dioxide 22 mEq/L (23-29); Chloride 91 mEq/L (98-107); Glucose 160 mg/dL (70-105); Osmolality,Calculated 259 (280-300); Potassium 3.5 mEq/L (3.5-5.1); Sodium 122 mEq/L (136-145); eGFR For African Americans > 60 (> 60); eGFR For Non-African Americans > 60 (> 60)
[2019-03-31 00:29] LABS: Troponin I < 0.03 ng/mL (< 0.04)
[2019-03-31 00:45] LABS: Bilirubin,Urine Small (Negative); Blood,Urine Negative (Negative); Clarity,Urine Clear (Clear); Color,Urine Yellow (Yellow); Glucose,Urine (UA) Normal (Normal); Ketones,Urine Negative (Negative); Leukocyte Esterase,Urine Negative (Negative); Nitrite,Urine Negative (Negative); Protein,Urine Negative (Neg-Trace); Specific Gravity,Urine 1.018 (1.010-1.025); Urobilinogen,Urine Normal (Normal)
[2019-03-31 00:56] LABS: Basophils # 0.2 K/mcL (0.0-0.2); Monocytes # 0.8 K/mcL (0.0-1.3); White Blood Count 24.2 K/mcL (4.3-11.1)
[2019-03-31] MEDS ORDERED: methylPREDNISolone 125 MG/2 ML VIAL IVP ONE (01:19)
[2019-03-31] MEDS: 0.9 % Sodium Chloride 500 ML IVC ONE ×2 (01:30→02:26)
[2019-03-31] MEDS ORDERED: Ondansetron 4 MG/2 ML VIAL IVP PRN (01:56)
[2019-03-31] MEDS ORDERED: Acetaminophen 325 MG TABLET PO PRN (01:56)
[2019-03-31] MEDS ORDERED: *HR* Dextrose 50 % in Water (Syg) 50 ML SYRINGE IVP PRN (02:01)
[2019-03-31] MEDS ORDERED: Dextrose Gel 15 GM/37.5 ML TUBE PO PRN ×2 (02:01)
[2019-03-31] MEDS ORDERED: 0.9 % Sodium Chloride 500 ML ONE (02:02)
--- NOTE | 2019-03-31 02:21 | Internal Med History&Physical ---
Date of Encounter: 03/31/19 Time of Encounter: 02:20 Internal Medicine - H&P: HPI Chief complaint: malaise Admitted From: Home Plans for Post Hospital Care: Home History of present illness: The patient is unable to provide significant history so bulk of information is obtained from the daughter. Lorena Barber is a 78-year-old woman with diabetes, rheumatoid arthritis, COPD and chronic venous hypertension with symptomatic varicose veins who underwent left lesser saphenous vein radiofrequency ablation 1 month ago. She is brought to the emergency room tonight via EMS with complaints of malaise. As per the daughter the patient took her regular dose of glipizide checked her blood sugar noting it to be 160 before dinner. She checked it later on and noted to be 140 which apparently caused her concern because it was going in the wrong direction. She also complained to her daughter of feeling generally unwell, complaining of dizziness that has been worsening over the last month, feeling fatigued and having more shortness of breath. The patient requested that her daughter take her to the ER so an ambulance was called to expedite things. On arrival she was hemodynamically stable but noted to have some labored breathing and wheezing that she was given steroids and nebulizer therapy. Incidentally lab work revealed a leukocyte count of 24, sodium 122, chloride 91 with a serum osmolality of 259. Chest x-ray revealed no anomalies and her urinalysis was negative. There was initial difficulty with IV access because of flattened veins. She is admitted for further care. She acknowledges diminished intake of recent and was advised she need to increase her fluids. She eats only peanut butter and jelly twice a day. Vitals: Reviewed General: Elderly woman who appears asthenic and fatigued lying in bed in [facility]. Skin: Warm and dry. HEENT: Dry mucous membranes. No conjunctivae pallor. Neck: No lymphadenopathy. No JVD. No carotid bruits. No palpable thyroid. Chest: Wheezing in both lung [place]. Heart: Normal S1 & S2; rhythmic. No rubs or murmurs. Abdomen: Non-distended, soft and non-tender to palpation. No peritoneal reaction. Extremities: Varices noted in both lower extremities. Both legs puffy and swollen. Neurological: Awake, alert and oriented to person, place and time. No focal deficits. Psych: Affect appropriate. Assessment/Plan 1. Hyponatremia: Hypotonic. Seemingly symptomatic as I suspect is the cause of her lethargy, weakness and fatigue that has been progressive. She does have dry skin and mucous membranes and I have concerns for intravascular depletion thereby making it hypovolemic in etiology. While she has been hyponatremic in the past, it has never been this low. Will get a urine sodium and osmolality for further evaluation and if these indices are seen to be low, will give a 1L saline challenge after which a repeat BMP will be obtained to assess what d irection it takes. I reviewed her medications and furosemide will be on hold for now pending further evolution of her labs and symptoms. 2. COPD exacerbation: Mild to moderate. Will place her on standing nebulizer therapy in addition to systemic steroids. 5 minutes were spent counseling and educating the patient on her smoking habit. information services consultant and resources were made available. 3. Leukocytosis: Unclear etiology. Does not correlate with hemoconcentration. Thus far there are no signs of infection evident however we will continue to monitor this. It is unknown to me at this time if she has recently been on steroids. 4. Diabetes: Seemingly well controlled with excellent glycemic values. Will place on insulin sliding scale. 5. Rheumatoid arthritis: On lefluonomide. Past Med Surg Social Fam HX - Past Medical History Medical history: COPD, diabetes, GERD, hypertension, RA Additional medical history: Patient is an overall poor historian. Psychiatric history: no psych history - Past Surgical History Surgical History: orthopedic, other Additional surgical history: Lip hip replacement (per patient a couple of years ago). - Social History Smoking Status: Current every day smoker Packs per day: 1 PPD Smokeless Tobacco Status: No Alcohol use: none Drug use: none - Family History Father Hx Family Cardiac Disorders: Yes (pacemaker) Mother Hx Family Cardiac Disorders: Yes (heart problems) Hx Family Cancer: Yes (liver) Internal Medicine - H&P: Meds Leflunomide [Arava] 20 mg PO DAILY 10/29/16 [History] Pravastatin Sodium [Pravachol] 80 mg PO DAILY 10/29/16 [History] Budesonide/Formoterol 160/4.5 [Symbicort 160/4.5] 2 puff IH BID 04/05/18 [History] Furosemide [Lasix] 20 mg PO DAILY 04/05/18 [History] GlipiZIDE [Glucotrol] 10 mg PO BID 04/05/18 [History] Metoprolol XL (24 HR) Succ [Toprol Xl] 50 mg PO DAILY #0 07/30/18 [Rx] Denosumab [Prolia (For Outpatient Infusion)] 60 mg SQ [id number] 02/14/19 [H istory] Albuterol Sulfate [Ventolin Hfa] 2 puff .ROUTE Q4H PRN 02/28/19 [History] Allergy/AdvReac Type Severity Reaction Status Date / Time codeine AdvReac Gastrointestinal Verified 07/29/18 20:56 Upset oxycodone [Oxycodone] AdvReac Gastrointestinal Verified 07/29/18 20:56 Upset ROS unobtainable: due to mental status All Systems PM: A 10-system review of systems was performed and is negative for pertinent findings except as documented above in the HPI. - Constitutional Vitals: Temp Pulse Resp BP Pulse Ox 98.7 F 88 20 104/55 94 03/31/19 02:10 03/31/19 02:10 03/31/19 02:10 03/31/19 02:10 03/31/19 02:10 Exam: . Internal Med - H&P Results - Labs CBC & Chem 7: 03/30/19 23:53 03/30/19 23:53 Labs: Short CBC 03/30/19 Range/Units 23:53 WBC 24.2 H D (4.3-11.1) K/mcL Hgb 12.2 (11.5-15.4) g/dL Hct 35.6 (35.3-44.9) % Plt Count 264 (140-400) K/mcL Neutrophils # 22.7 H (1.6-8.9) K/mcL BMP 03/30/19 23:53 Sodium 122 L Potassium 3.5 Chloride 91 L Carbon Dioxide 22 L BUN 18 Creatinine 0.85 Glucose 160 H Calcium 8.6 Cardiac Enzymes 03/30/19 Range/Units 23:53 Troponin I < 0.03 (< 0.04) ng/mL Urine 03/31/19 Range/Units 00:26 Urine Color Yellow (Yellow) Urine Clarity Clear (Clear) Urine pH 6.0 (5.0-8.0) pH Units Ur Specific [place] 1.018 (1.010-1.025) Urine Protein Negative (Neg-Trace) mg/dL Urine Glucose (UA) Normal (Normal) mg/dL - Impressions ITS Impressions Chest X-Ray 03/30/19 22:50 IMPRESSION: No radiographic evidence of acute cardiopulmonary disease. D/ / Vladimir Morris / Vladimir Morris Interpreting Provider: Vladimir Morris - Time Spent With Patient Total time spent is greater than 50% in coordination of care (as documented) at patient's floor/unit and/or counseling patient:
[2019-03-31 04:06] LABS: BUN/Creatinine Ratio 19 (6-26); Blood Urea Nitrogen 16 mg/dL (8-23); Carbon Dioxide 21 mEq/L (23-29); Chloride 95 mEq/L (98-107); Glucose 209 mg/dL (70-105); Osmolality,Calculated 261 (280-300); Potassium 3.7 mEq/L (3.5-5.1); Sodium 122 mEq/L (136-145); eGFR For African Americans > 60 (> 60); eGFR For Non-African Americans > 60 (> 60)
[2019-03-31] MEDS: Ipratropium/Albuterol Neb 3 ML IH SCH ×5 (04:25→19:42)
[2019-03-31] MEDS ORDERED: 0.9 % Sodium Chloride 1,000 ML IVC SCH (05:15)
[2019-03-31] MEDS ORDERED: D5% in Water 1,000 ML IVC PRN (07:42)
[2019-03-31] MEDS: predniSONE 20 MG TABLET PO SCH (08:15)
[2019-03-31] MEDS: Metoprolol XL (24 HR) Succ 25 MG TAB.ER.24H PO SCH ×2 (08:15→08:25)
[2019-03-31] MEDS: Leflunomide [Arava] 20 MG PO SCH (08:15)
[2019-03-31 08:22] LABS: Hematocrit 32.2 % (35.3-44.9); Hemoglobin 10.9 g/dL (11.5-15.4); Mean Corpuscular HGB Conc 33.9 g/dL (31.6-35.5); Mean Corpuscular Hemoglobin 29.4 pg (28.0-33.3); Mean Corpuscular Volume 86.8 fL (83.0-100.0); Mean Platelet Volume 9.6 fL (9.4-12.4); Platelet Count 265 K/mcL (140-400); Red Blood Count 3.71 M/mcL (3.82-4.97); Red Cell Distribution Width 13.5 % (11.5-14.5); White Blood Count 23.9 K/mcL (4.3-11.1)
[2019-03-31] MEDS: Insulin LISPRO 300 UNITS/3 ML VIAL SQ SCH ×4 (08:25→20:00)
[2019-03-31 08:42] LABS: BUN/Creatinine Ratio 20 (6-26); Blood Urea Nitrogen 16 mg/dL (8-23); Carbon Dioxide 22 mEq/L (23-29); Chloride 95 mEq/L (98-107); Glucose 298 mg/dL (70-105); Osmolality,Calculated 266 (280-300); Potassium 3.8 mEq/L (3.5-5.1); Sodium 122 mEq/L (136-145); eGFR For African Americans > 60 (> 60); eGFR For Non-African Americans > 60 (> 60)
--- NOTE | 2019-03-31 13:19 | Internal Med Progress Note ---
Hospitalist Progress Note - Encounter Date of Encounter: 03/31/19 Time of Encounter: 13:28 - Subjective Interval History: Patient seen and examined. No acute events overnight. Patient states she feels ok. She is on 3L NC which is new. She appears comfortable. Denies chest pain - Exam Vitals: Temp Pulse Resp BP Pulse Ox 98.7 F 88 18 95/57 95 03/31/19 11:12 03/31/19 11:12 03/31/19 11:13 03/31/19 11:12 03/31/19 11:13 Exam: General: Elderly woman who appears asthenic and fatigued lying in bed in [facility]. Skin: Warm and dry. HEENT: Dry mucous membranes. No conjunctivae pallor. Neck: No lymphadenopathy. No JVD. No carotid bruits. No palpable thyroid. Chest: Wheezing in both lung [place]. Heart: Normal S1 & S2; rhythmic. No rubs or murmurs. Abdomen: Non-distended, soft and non-tender to palpation. No peritoneal reaction. Extremities: Varices noted in both lower extremities. Both legs puffy and swollen. Neurological: Awake, alert and oriented to person, place and time. No focal deficits. Psych: Affect appropriate. - Assessment and Plan (1) Hyponatremia Current Visit: Yes Status: Acute Assessment and Plan: Potentially symptomatic hyponatremia Poor diet at home 122 on admission and no improvement with IVF On furosemide as OP Plan Hold lasix IVF Urine studies Consider nephro if no improvement (2) Leukocytosis Current Visit: Yes Status: Acute Assessment and Plan: No clear sign of infection Leukocytosis with significant elevation of procal Patient on biologics for RA which may be causing CXR unremarkable but patient requiring 3L NC to maintain sat Plan CT chest/abd/pelvis to r/o infection Low threshold for empiric abx (3) Weakness Current Visit: Yes Status: Acute Assessment and Plan: Likely due to poor diet; exacerbated by acute illness Plan: consult nutrition (4) Acute exacerbation of chronic obstructive airways disease Current Visit: No Status: Acute Assessment and Plan: Mild to moderate; may explain O2 requirement Plan Systemic steroids and nebulizer treatments O2 as needed to maintain sat>90% (5) Diabetes mellitus Current Visit: No Status: Chronic Assessment and Plan: sliding scale insulin (6) Rheumatoid arthritis Current Visit: No Status: Chronic Assessment and Plan: Patient not reporting significant pain May be contributing to leukocytosis and elevated procal Plan Continue home meds Check ESR and CRP - Time Spent with Patient Total time spent is greater than 50% in coordination of care (as documented) at patient's floor/unit and/or counseling patient: 35 minutes Internal Medicine: Result - Labs CBC & Chem 7: 03/31/19 08:07 03/31/19 08:07 Labs: Short CBC 03/30/19 03/31/19 Range/Units 23:53 08:07 WBC 24.2 H D 23.9 H (4.3-11.1) K/mcL Hgb 12.2 10.9 L (11.5-15.4) g/dL Hct 35.6 32.2 L (35.3-44.9) % Plt Count 264 265 (140-400) K/mcL Neutrophils # 22.7 H (1.6-8.9) K/mcL BMP 03/30/19 03/31/19 03/31/19 23:53 03:30 08:07 Sodium 122 L 122 L 122 L Potassium 3.5 3.7 3.8 Chloride 91 L 95 L 95 L Carbon Dioxide 22 L 21 L 22 L BUN 18 16 16 Creatinine 0.85 0.84 0.79 Glucose 160 H 209 H 298 H Calcium 8.6 8.0 L 8.0 L Cardiac Enzymes 03/30/19 Range/Units 23:53 Troponin I < 0.03 (< 0.04) ng/mL Urine 03/31/19 Range/Units 00:26 Urine Color Yellow (Yellow) Urine Clarity Clear (Clear) Urine pH 6.0 (5.0-8.0) pH Units Ur Specific [place] 1.018 (1.010-1.025) Urine Protein Negative (Neg-Trace) mg/dL Urine Glucose (UA) Normal (Normal) mg/dL - Impressions Impressions Chest X-Ray 03/30/19 22:50 IMPRESSION: No radiographic evidence of acute cardiopulmonary disease. D/ / Vladimir Morris / Vladimir Morris Interpreting Provider: Vladimir Morris - VTE Documentation of Mechanical Device: Graduated compression elastic hosiery Consult Discharge Plan - Plan Referrals: Raudel Soto MD [Primary Care Provider] - (2) Leukocytosis Qualifiers: Leukocytosis type: unspecified Qualified Code(s): D72.829 - Elevated white blood cell count, unspecified (5) Diabetes mellitus Qualifiers: Diabetes mellitus type: type 2 Diabetes mellitus intermediate insulin use: without intermediate use Diabetes mellitus complication status: with hyperglycemia Qualified Code(s): E11.65 - Type 2 diabetes mellitus with hyperglycemia (6) Rheumatoid arthritis Qualifiers: Rheumatoid arthritis location: unspecified site Rheumatoid factor presence: unspecified presence Qualified Code(s): M06.9 - Rheumatoid arthritis, unspecified
[2019-03-31 13:25] LABS: C-Reactive Protein 78 mg/L (Less than 10)
[2019-03-31] MEDS ORDERED: Ipratropium/Albuterol Neb 3 ML IH PRN (20:27)
[2019-04-01 05:41] LABS: Hematocrit 30.4 % (35.3-44.9); Hemoglobin 10.3 g/dL (11.5-15.4); Mean Corpuscular HGB Conc 33.9 g/dL (31.6-35.5); Mean Corpuscular Hemoglobin 29.8 pg (28.0-33.3); Mean Corpuscular Volume 87.9 fL (83.0-100.0); Mean Platelet Volume 9.8 fL (9.4-12.4); Platelet Count 257 K/mcL (140-400); Red Blood Count 3.46 M/mcL (3.82-4.97); Red Cell Distribution Width 13.6 % (11.5-14.5); White Blood Count 17.2 K/mcL (4.3-11.1)
[2019-04-01 05:59] LABS: BUN/Creatinine Ratio 24 (6-26); Blood Urea Nitrogen 17 mg/dL (8-23); Calcium 8.4 mg/dL (8.6-10.3); Carbon Dioxide 24 mEq/L (23-29); Chloride 95 mEq/L (98-107); Glucose 160 mg/dL (70-105); Osmolality,Calculated 261 (280-300); Potassium 3.9 mEq/L (3.5-5.1); Sodium 123 mEq/L (136-145); eGFR For African Americans > 60 (> 60); eGFR For Non-African Americans > 60 (> 60)
[2019-04-01] MEDS ORDERED: 0.9 % Sodium Chloride 1,000 ML IVC SCH (07:30)
[2019-04-01] MEDS: Metoprolol XL (24 HR) Succ 25 MG TAB.ER.24H PO SCH (08:24)
[2019-04-01] MEDS: predniSONE 20 MG TABLET PO SCH (08:25)
[2019-04-01] MEDS: Insulin LISPRO 300 UNITS/3 ML VIAL SQ SCH ×4 (08:28→20:55)
[2019-04-01] MEDS: Leflunomide [Arava] 20 MG PO SCH (08:30)
--- NOTE | 2019-04-01 10:49 | Nephrology Consult Note ---
Date of Encounter: 04/01/19 Time of Encounter: 10:30 Assessment and Plan (1) Hyponatremia Current Visit: Yes Status: Acute Asymptomatic hyponatremia, trending better. The differential diagnosis could include a true hypoosmolar deficit of sodium, but with her history of smoking and wheezing, a pulmonary malignancy etiology should be considered as well. She also has anemia and fatigue, and so I will also screen for myeloma/amyloidosis, which in rare instances will contribute to hyponatremia. I agree with the IV fluids for now, and I will check iron studies as well as further workup. The urine osmolality was not terribly elevated, so this may not respresent SIADH. The IV fluids are in excellent option, and if she does not improve sufficiently, then I would add salt tablets. I recommend a slow, safe correction rate of 6-8 mEq per 24 hours. The ramirez for having consulted the [place] [facility] on this highly complex patient who required a high degree of evaluation and management. (2) Weakness Current Visit: Yes Status: Acute I suspect multifactorial in etiology, and the hyponatremia as well as the anemia may be contributing. (3) COPD exacerbation Current Visit: Yes Status: Chronic As per primary. (4) Diabetes mellitus Current Visit: No Status: Chronic As per primary. See above. Qualifiers: Diabetes mellitus type: type 2 Diabetes mellitus prison insulin use: without prison use Diabetes mellitus complication status: with hyperglycemia Qualified Code(s): E11.65 - Type 2 diabetes mellitus with hyperglycemia (5) Essential hypertension Current Visit: No Status: Chronic (6) Anemia Current Visit: No Status: Acute Qualifiers: Anemia type: unspecified type Qualified Code(s): D64.9 - Anemia, unspecif ied History of Present Illness - Reason for Consult Consult date: 04/01/19 hyponatremia Requesting physician: Paige Espinal - Chief Complaint Hyponatremia - History of Present Illness The patient is a very pleasant 78-year-old female with a past medical history of smoking who presents with hyponatremia, for which nephrology was consulted. The patient was placed on IV fluids earlier in the hospitalization and her sodium is slowly improving. She did not affirm consuming alcohol regularly, and she voiced that she does not have a hx of seizures. She did not affirm taking [id number]-[id number] NSAIDs routinely. She says she drinks about 2 L of water per day on average. She is an active smoker, she affirmed. She did not report difficulties with emptying her bladder. She did not affirm previous renal stones or gout. She could not describe any palliative or provocative factors regarding the hyponatremia. Family history: She did not affirm having any family history of renal disease. Past Med Surg Social Fam HX - Past Medical History Medical history: COPD, diabetes, GERD, hypertension, RA Additional medical history: Patient is an overall poor historian. Psychiatric history: no psych history - Past Surgical History Surgical History: orthopedic, other Additional surgical history: Lip hip replacement (per patient a couple of years ago). - Social History Smoking Status: Current every day smoker Packs per day: 1 PPD Smokeless Tobacco Status: No Alcohol use: none Drug use: none - Family History Father Hx Family Cardiac Disorders: Yes (pacemaker) Mother Hx Family Cardiac Disorders: Yes (heart problems) Hx Family Cancer: Yes (liver) Medications and Allergies Leflunomide [Arava] 20 mg PO DAILY 10/29/16 [History] Pravastatin Sodium [Pravachol] 80 mg PO DAILY 10/29/16 [History] Budesonide/Formoterol 160/4.5 [Symbicort 160/4.5] 2 puff IH BID 04/05/18 [Hist ory] Furosemide [Lasix] 20 mg PO BID 04/05/18 [History] GlipiZIDE [Glucotrol] 10 mg PO QPM 04/05/18 [History] Denosumab [Prolia (For Outpatient Infusion)] 60 mg SQ [id number] 02/14/19 [History] GlipiZIDE [Glucotrol] 15 mg PO QAM 03/31/19 [History] Metoprolol Succinate [Toprol Xl] 50 mg PO DAILY 03/31/19 [History] Allergy/AdvReac Type Severity Reaction Status Date / Time codeine AdvReac Gastrointestinal Verified 03/31/19 15:49 Upset oxycodone [Oxycodone] AdvReac Gastrointestinal Verified 03/31/19 15:49 Upset Review of Systems All Systems: reviewed and no additional remarkable complaints except as stated Exam - Vital Signs Vital signs: Initial Vital Signs Temp Pulse Resp BP Pulse Ox 98.4 F 86 20 105/50 92 03/30/19 22:38 03/30/19 22:38 03/30/19 22:38 03/30/19 22:38 03/30/19 22:38 Vital Signs - Last 8 Hours Temp Pulse Resp BP Pulse Ox 04/01/19 10:38 98.1 F 74 17 119/72 93 04/01/19 06:44 97.8 F 81 18 115/70 94 04/01/19 03:31 98 F 110 18 131/64 95 Intake and Output 03/31/19 04/01/19 04/01/19 23:59 07:59 15:59 Intake Total 240 / 240 Output Total 300 / 300 Balance -300 / -60 240 / -60 Intake: Oral 240 / 240 Output: Urine 300 / 300 Other: Meal Breakfast Percent of Meal Consumed 20% # Voids 1 Blood Glucose* 393 156 - General Appearance General appearance: well-developed, well-nourished, frail EENT: ATNC, PERRL, mucous membranes moist Neck: no JVD, supple Respiratory: no kyphosis, wheezing Cardiology: edema (trace nontense, nonpitting LE ankle swelling bilaterally), regular rate, regular rhythm, normal S1, normal S2 Gastrointestinal: normoactive bowel sounds, no tenderness, no guarding Integumentary: no rash, warm and dry Neurologic: no focal deficit, no asterixis Musculoskeletal: no deformities, no cyanosis, no clubbing Psychiatric: mood/affect appropriate, cooperative Results - Lab Results 04/01/19 05:05 04/01/19 05:05 Most recent lab results 04/01/19 05:05 Calcium 8.4 L Consult Discharge Plan - Plan Referrals: Raudel Soto MD [Primary Care Provider] -
--- NOTE | 2019-04-01 11:08 | Electrocardiograph Report ---
[facility] Test Date: 2019-03-30 Pat Name: Lorena Barber Department: EXAM27 Room: 2A14 Gender: F Manager Manufacturing: : 1940 Requested By: Carey Lamb Order Number: [id number] Reading MD: Raudel Patel Measurements Intervals [place] Rate: 87 P: 89 FL: 171 QRS: 58 QRSD: 91 T: 30 QT: 363 QTc: 437 Interpretive Statements Sinus rhythm Borderline abnrm T, anterolateral leads Electronically Signed On 04-01-2019 11:07:08 EDT by Raudel Patel
--- NOTE | 2019-04-01 12:41 | Internal Med Progress Note ---
Hospitalist Progress Note - Encounter Date of Encounter: 04/01/19 Time of Encounter: 12:39 - Subjective Interval History: Patient seen and examined. She has no acute complaints. She appears comfortable on room air. Denies chest pain or dizziness. States she is eating well. - Exam Vitals: Temp Pulse Resp BP Pulse Ox 98.1 F 74 17 119/72 93 04/01/19 10:38 04/01/19 10:38 04/01/19 10:38 04/01/19 10:38 04/01/19 10:38 Exam: General: Elderly woman who appears asthenic and fatigued lying in bed in [facility]. Skin: Warm and dry. HEENT: Dry mucous membranes. No conjunctivae pallor. Neck: No lymphadenopathy. No JVD. No carotid bruits. No palpable thyroid. Chest: Wheezing in both lung [place]. Heart: Normal S1 & S2; rhythmic. No rubs or murmurs. Abdomen: Non-distended, soft and non-tender to palpation. No peritoneal reaction. Extremities: Varices noted in both lower extremities. Both legs puffy and swollen. Neurological: Awake, alert and oriented to person, place and time. No focal deficits. Psych: Affect appropriate. - Assessment and Plan (1) Hyponatremia Current Visit: Yes Status: Acute Assessment and Plan: Potentially symptomatic hyponatremia Poor diet at home 122 on admission and no significant improvement with IVF On furosemide as OP Plan Hold lasix IVF Urine studies Nephrology consulted (2) Acute exacerbation of chronic obstructive airways disease Current Visit: No Status: Acute Assessment and Plan: Mild to moderate; initially with O2 requirement not present at baseline Breathing improved; stable on room air Plan Systemic steroids and nebulizer treatments O2 as needed to maintain sat>90% (3) Leukocytosis Current Visit: Yes Status: Acute Assessment and Plan: No clear sign of infection Leukocytosis with significant elevation of procal Patient on biologics for RA which may be causing CXR unremarkable CT chest/abd/pelvis with no signs of infection WBC trending down Plan Repeat procal (4) Weakness Current Visit: Yes Status: Acute Assessment and Plan: Likely due to poor diet; exacerbated by acute illness Plan: consult nutrition (5) Diabetes mellitus Current Visit: No Status: Chronic Assessment and Plan: sliding scale insulin (6) Rheumatoid arthritis Current Visit: No Status: Chronic Assessment and Plan: Patient not reporting significant pain May be contributing to leukocytosis and elevated procal Plan Continue home meds Check ESR and CRP (7) DVT prophylaxis Current Visit: No Status: Chronic Assessment and Plan: scd - Time Spent with Patient Total time spent is greater than 50% in coordination of care (as documented) at patient's floor/unit and/or counseling patient: 40 minutes Plan of Care Discussed with: patient Internal Medicine: Result - Labs CBC & Chem 7: 04/01/19 05:05 04/01/19 05:05 Labs: Short CBC 04/01/19 Range/Units 05:05 WBC 17.2 H (4.3-11.1) K/mcL Hgb 10.3 L (11.5-15.4) g/dL Hct 30.4 L (35.3-44.9) % Plt Count 257 (140-400) K/mcL BMP 03/31/19 04/01/19 08:07 05:05 Sodium 122 L 123 L Potassium 3.8 3.9 Chloride 95 L 95 L Carbon Dioxide 22 L 24 BUN 16 17 Creatinine 0.79 0.71 Glucose 298 H 160 H Calcium 8.0 L 8.4 L - Impressions Impressions Abdomen/Pelvis CT 03/31/19 13:47 IMPRESSION: 1. No acute process identified in the chest. 2. Minimal stranding adjacent to the proximal sigmoid colon most consistent with mild diverticulitis. No abscess. 3. Question rectal wall thickening. Direct visualization is suggested to exclude a rectal wall mass. 4. Cholelithiasis. 5. Nonobstructing right lower pole renal calculus. 6. Evidence of chronic pancreatitis. D/ / 03/31/2019 14:13:34 Wale Ward MD / sheela Interpreting Provider: Wale Ward MD Chest CT 03/31/19 13:47 IMPRESSION: 1. No acute process identified in the chest. 2. Minimal stranding adjacent to the proximal sigmoid colon most consistent with mild diverticulitis. No abscess. 3. Question rectal wall thickening. Direct visualization is suggested to exclude a rectal wall mass. 4. Cholelithiasis. 5. Nonobstructing right lower pole renal calculus. 6. Evidence of chronic pancreatitis. D/ / 03/31/2019 14:13:34 Wale Ward MD / sheela Interpreting Provider: Wale Ward MD - VTE Documentation of Mechanical Device: Graduated compression elastic hosiery Consult Discharge Plan - Plan Referrals: Raudel Soto MD [Primary Care Provider] - (3) Leukocytosis Qualifiers: Leukocytosis type: unspecified Qualified Code(s): D72.829 - Elevated white blood cell count, unspecified (5) Diabetes mellitus Qualifiers: Diabetes mellitus type: type 2 Diabetes mellitus intermediate accountant insulin use: without intermediate accountant use Diabetes mellitus complication status: with hyperglycemia Qualified Code(s): E11.65 - Type 2 diabetes mellitus with hyperglycemia (6) Rheumatoid arthritis Qualifiers: Rheumatoid arthritis location: unspecified site Rheumatoid factor presence: unspecified presence Qualified Code(s): M06.9 - Rheumatoid arthritis, unspecified
[2019-04-02 04:36] LABS: Hematocrit 33.3 % (35.3-44.9); Hemoglobin 11.1 g/dL (11.5-15.4); Mean Corpuscular HGB Conc 33.3 g/dL (31.6-35.5); Mean Corpuscular Hemoglobin 29.5 pg (28.0-33.3); Mean Corpuscular Volume 88.6 fL (83.0-100.0); Mean Platelet Volume 9.7 fL (9.4-12.4); Platelet Count 293 K/mcL (140-400); Red Blood Count 3.76 M/mcL (3.82-4.97); Red Cell Distribution Width 13.7 % (11.5-14.5); White Blood Count 11.7 K/mcL (4.3-11.1)
[2019-04-02 04:57] LABS: Uric Acid 4.8 mg/dL (2.3-7.6)
[2019-04-02 05:01] LABS: BUN/Creatinine Ratio 26 (6-26); Blood Urea Nitrogen 15 mg/dL (8-23); Calcium 8.6 mg/dL (8.6-10.3); Carbon Dioxide 22 mEq/L (23-29); Chloride 104 mEq/L (98-107); Glucose 107 mg/dL (70-105); Osmolality,Calculated 277 (280-300); Potassium 3.9 mEq/L (3.5-5.1); Sodium 133 mEq/L (136-145); eGFR For African Americans > 60 (> 60); eGFR For Non-African Americans > 60 (> 60)
[2019-04-02 05:08] LABS: Thyroid Stimulating Hormone 1.107 mcIU/mL (0.340-5.600)
[2019-04-02] MEDS: Insulin LISPRO 300 UNITS/3 ML VIAL SQ SCH ×2 (09:32→14:19)
[2019-04-02] MEDS: predniSONE 20 MG TABLET PO SCH (09:33)
[2019-04-02] MEDS: Metoprolol XL (24 HR) Succ 25 MG TAB.ER.24H PO SCH (09:33)
[2019-04-02] MEDS: Leflunomide [Arava] 20 MG PO SCH (09:33)
[2019-04-02 11:30] VITALS: BP 146/77
--- NOTE | 2019-04-02 12:16 | Discharge Summary ---
- NOTES TO OUTPATIENT PROVIDER Notes to Outpatient Provider: Have a repeat BMP within a week. Needs appoitment to see African History Professor 3-4 weeks after hospital discharge. Orders not resulted at time of discharge: Pending orders 03/31/19 01:58 Culture,Blood [BC] Stat 04/02/19 04:00 Immunofixation,Urine (BJP) AM 0400 04/02/19 04:03 [place] Lambda Qnt FLC w Ratio AM 0400 Date of Encounter: 04/02/19 Time of Encounter: 12:13 - Discharge Diagnosis (1) Hyponatremia Priority: Primary Status: Resolved (2) Acute exacerbation of chronic obstructive airways disease Priority: Primary Status: Resolved (3) Leukocytosis Priority: Primary Status: Resolved Qualifiers: Leukocytosis type: unspecified Qualified Code(s): D72.829 - Elevated white blood cell count, unspecified (4) Weakness Priority: Secondary Status: Chronic (5) Diabetes mellitus Priority: Secondary Status: Chronic Qualifiers: Diabetes mellitus type: type 2 Diabetes mellitus detention insulin use: without buttermaker helper use Diabetes mellitus complication status: with hyperglycemia Qualified Code(s): E11.65 - Type 2 diabetes mellitus with hyperglycemia (6) Rheumatoid arthritis Priority: Secondary Status: Chronic Qualifiers: Rheumatoid arthritis location: unspecified site Rheumatoid factor presence: unspecified presence Qualified Code(s): M06.9 - Rheumatoid arthritis, unspecified (7) DVT prophylaxis Priority: Secondary Status: Chronic (8) Diverticulitis of sigmoid colon Priority: Primary Status: Acute Hospital course: Ms. Barber is a 78 year old female PMH diabetes, rheumatoid arthritis, COPD and chronic venous hypertension with symptomatic varicose veins who underwent left lesser saphenous vein radiofrequency ablation 1 month ago. She is brought to the emergency room tonight via EMS with complaints of malaise. Patient also r eported very poor oral intake. Patient was admitted to the hospital due to copd exacerbation, hyponatrermia, leukocytosis. A CT abd/pelvis done: IMPRESSION: 1. No acute process identified in the chest. 2. Minimal stranding adjacent to the proximal sigmoid colon most consistent with mild diverticulitis. No abscess. 3. Question rectal wall thickening. Direct visualization is suggested to exclude a rectal wall mass. 4. Cholelithiasis. 5. Nonobstructing right lower pole renal calculus. 6. Evidence of chronic pancreatitis. Patient was managed with IV steroids, bronchodilators and IV antibiotics. Hyponatremia was managed with IV fluids and sodium tablets. Patient recommended to follow up with a African History Professor for possible colonoscopy within 3-4 weeks of hospital discharge. - Time Spent with Patient Total time spent providing and/or coordinating discharge services: Time spent: Greater than 30 minutes (35) - Discharge Medications Prescriptions: New Amoxicillin/Clavulanate [Augmentin] 875 mg PO BIDWM 7 Days #14 tablet Continued Pravastatin Sodium [Pravachol] 80 mg PO DAILY Leflunomide [Arava] 20 mg PO DAILY Budesonide/Formoterol 160/4.5 [Symbicort 160/4.5] 2 puff IH BID Furosemide [Lasix] 20 mg PO BID GlipiZIDE [Glucotrol] 10 mg PO QPM Denosumab [Prolia (For Outpatient Infusion)] 60 mg SQ [id number] GlipiZIDE [Glucotrol] 15 mg PO QAM Metoprolol Succinate [Toprol Xl] 50 mg PO DAILY Home Medications: Leflunomide [Arava] 20 mg PO DAILY 10/29/16 [History] Pravastatin Sodium [Pravachol] 80 mg PO DAILY 10/29/16 [History] Budesonide/Formoterol 160/4.5 [Symbicort 160/4.5] 2 puff IH BID 04/05/18 [History] Furosemide [Lasix] 20 mg PO BID 04/05/18 [History] GlipiZIDE [Glucotrol] 10 mg PO QPM 04/05/18 [History] Denosumab [Prolia (For Outpatient Infusion)] 60 mg SQ [id number] 02/14/19 [History] GlipiZIDE [Glucotrol] 15 mg PO QAM 03/31/19 [History] Metoprolol Succinate [Toprol Xl] 50 mg PO DAILY 03/31/19 [History] Amoxicillin/Clavulanate [Augmentin] 875 mg PO BIDWM 7 Days #14 tablet 04/02/19 [Rx] Allergies/Adverse Reactions: Allergy/AdvReac Type Severity Reaction Status Date / Time codeine AdvReac Gastrointestinal Verified 03/31/19 15:49 Upset oxycodone [Oxycodone] AdvReac Gastrointestinal Verified 03/31/19 15:49 Upset Date of admission: 04/01/19 12:48 Primary care physician: Raudel Soto MD Consults: 03/31/19 02:05 Consult to Nutrition [CONS] Routine Comment: Review nurse note for further detail. Consulting Provider: NUTRITION Reason for Dietary Consult: MST Score 04/01/19 10:11 Consult to Nephrology [CONS] Routine Consulting Provider: Kidney Hardy/ORIMI/PARG/BROWN Reason for Consult: hyponatremia Call Completed: Yes - Constitutional Vitals: Temp Pulse Resp BP Pulse Ox 97.4 F L 70 17 146/77 93 04/02/19 11:29 04/02/19 11:29 04/02/19 11:29 04/02/19 11:29 04/02/19 11:29 Exam: Vitals: Reviewed General: Alert and oriented x4. In no distress Skin: Normal color, no rash, no lesions. HEENT: EOM, pupils equal, round and reactive. Cardiovascular: RRR, normal S1 & S2, no rubs, murmurs or gallops. Lungs: CTA b/l, no wheezes or crackles. Abdomen: Soft, non-tender, no rigidity. Extremities: No deformity, no edema or tenderness, no joint swelling or c lubbing. Neurological: Normal cognition and motor skills. Rest of the physical exam is non contributory - Patient Status Disposition: Home Health Service Condition: Good Functional capacity at discharge: independent ambulation Overall status at discharge: patient is progressing back to baseline - Discharge Instructions Follow Up With: Raudel Stoo MD [Primary Care Provider] - - Diet and Activity Activity: as per physical therapy Diet: advance to your usual diet, diabetic diet - VTE Documentation of Mechanical Device: Graduated compression elastic hosiery
--- NOTE | 2019-04-02 12:26 | Physician Discharge Referral ---
Home Health/Hosp Referral Info Transfer to: Home Health - Diagnosis (1) Hyponatremia Priority: Primary Status: Resolved (2) Acute exacerbation of chronic obstructive airways disease Priority: Primary Status: Resolved (3) Leukocytosis Priority: Secondary Status: Resolved (4) Weakness Priority: Secondary Status: Chronic (5) Diabetes mellitus Priority: Secondary Status: Chronic (6) Rheumatoid arthritis Priority: Secondary Status: Chronic (7) DVT prophylaxis Priority: Secondary Status: Chronic (8) Diverticulitis of sigmoid colon Priority: Secondary Status: Acute - Respiratory Orders None Smoking Cessation: Smoking cessation has been advised. For more information, call the [place] Tobacco Quit Line at 9-513-TWBINOW. - Diet/Nutrition Diet/Nutrition Orders: Regular - Activity Activity Orders: Ambulate - Services Needed Following services are medically necessary services: Home Health Aide, Physical Therapy, Occupational Therapy - Transfer Medications Prescriptions: Amoxicillin/Clavulanate [Augmentin] 875 mg PO BIDWM 7 Days #14 tablet Transmission Status: Pending to [facility] #[id number] Home Medications: Leflunomide [Arava] 20 mg PO DAILY 10/29/16 [History] Pravastatin Sodium [Pravachol] 80 mg PO DAILY 10/29/16 [History] Budesonide/Formoterol 160/4.5 [Symbicort 160/4.5] 2 puff IH BID 04/05/18 [History] Furosemide [Lasix] 20 mg PO BID 04/05/18 [History] GlipiZIDE [Glucotrol] 10 mg PO QPM 04/05/18 [History] Denosumab [Prolia (For Outpatient Infusion)] 60 mg SQ [id number] 02/14/19 [History] GlipiZIDE [Glucotrol] 15 mg PO QAM 03/31/19 [History] Metoprolol Succinate [Toprol Xl] 50 mg PO DAILY 03/31/19 [History] Amoxicillin/Clavulanate [Augmentin] 875 mg PO BIDWM 7 Days #14 tablet 04/02/19 [Rx] Allergies/Adverse Reactions: Allergy/AdvReac Type Severity Reaction Status Date / Time codeine AdvReac Gastrointestinal Verified 03/31/19 15:49 Upset oxycodone [Oxycodone] AdvReac Gastrointestinal Verified 03/31/19 15:49 Upset Certification: Further, I certify that my clinical findings support that this patient is homebound (i.e. absences from home require considerable and taxing effort and are for medical reasons or restoration services or infrequently or short duration when for other reasons) because: Homebound Reason: Patient requires assistance of a person or device to safely leave home Attestation: My signature below is to certify that this patient is under my care and that I, or nurse practitioner, or a physician's photographer assistant working with me, has a [id number] encounter with this patient.
--- NOTE | 2019-04-02 12:40 | Nephrology Progress Note ---
Date of Encounter: 04/02/19 Time of Encounter: 12:05 - Assessment and Plan (1) Hyponatremia Current Visit: Yes Status: Resolved Asymptomatic hyponatremia, trending better. Most likely the etiology of her hyponatremia is hypoosmolar (i.e. a true deficit of sodium). There were no findings of pulmonary malignancy, so this would not be in the etiology for her hyponatremia Asymptomatic, without confusion, or other neurologic changes. She does appear t o have some potential depression, with her comments, but I will defer this to her primary team. Given the improvement seen in the hyponatremia, she is okay to be discharged from a nephrology perspective. Discussed with the hospitalist. The ramirez for having consulted the [facility] on this highly complex patient who required a high degree of evaluation and management. (2) Weakness Current Visit: Yes Status: Chronic (3) COPD exacerbation Current Visit: Yes Status: Chronic (4) Diabetes mellitus Current Visit: No Status: Chronic Qualifiers: Diabetes mellitus type: type 2 Diabetes mellitus care home insulin use: [facility] care home use Diabetes mellitus complication status: with hyperglycemia Qualified Code(s): E11.65 - Type 2 diabetes mellitus with hyperglycemia (5) Essential hypertension Current Visit: No Status: Chronic (6) Anemia Current Visit: No Status: Acute Qualifiers: Anemia type: unspecified type Qualified Code(s): D64.9 - Anemia, unspecified Subjective Principal diagnosis: Hyponatremia Interval history: Patient was seen and examined, and she did not affirm having nausea, vomiting, or chest pain. He says that her lower extremitys are typically puffy, but not more swollen than typical, in fact she felt that they were typically worse than the current status. She reports having diminished appetite and difficulty eating, without choking on solids or liquids. The hospitalists was present during my interview and exam, and he voiced that he plans to discharge her today. Objective - Vital Signs Vital signs: Vital Signs Temp Pulse Resp BP Pulse Ox 04/02/19 11:29 97.4 F L 70 17 146/77 93 04/02/19 07:26 98.2 F 77 16 119/69 95 04/02/19 04:03 97.3 F L 81 16 152/73 94 04/02/19 00:05 16 98 04/01/19 23:49 97.7 F 83 16 149/80 93 04/01/19 18:34 98.5 F 80 16 151/77 93 04/01/19 14:40 98.2 F 90 16 146/76 94 Intake and Output 04/01/19 04/02/19 04/02/19 23:59 07:59 15:59 Intake Total 1300 / 1780 0 / 0 Balance 1300 / 1480 0 / 0 Intake: IV Fluids 1000 / 1000 0.9 % Sodium Chloride 1,000 ML 1000 / 1000 @ 100 mls/hr IVC .Q10H BOBBY Rx#: [id number] Oral 300 / 780 0 / 0 Other: Meal Breakfast Percent of Meal Consumed 20% # Voids 1 Weight 70.1 kg Blood Glucose* 175 142 - General Appearance General appearance: Present: well-developed, well-nourished, appears started age, obese EENT: Present: ATNC, PERRL, mucous membranes moist Neck: Present: no JVD, supple Respiratory: Present: no kyphosis, clear (with faint rhonchi) Cardiology: Present: no murmurs, edema (puffy nontense, nonpitting LEs bilatera lly (mostly adiposity)), regular rate, regular rhythm, normal S1, normal S2 Gastrointestinal: Present: normoactive bowel sounds, no tenderness, no guarding Integumentary: Present: warm and dry. Absent: chronic venous stasis Neurologic: Present: no focal deficit, no asterixis, alert and oriented x3 Musculoskeletal: Present: no deformities, no erythema, no cyanosis Psychiatric: Present: mood/affect appropriate, cooperative - Lab 04/02/19 04:03 04/02/19 04:03 Most recent lab results 04/02/19 04:03 Calcium 8.6 - Imaging Additional Comments: CT imaging of her lungs did not reveal any lymphadenopathy or masses. - VTE Documentation of Mechanical Device: Graduated compression elastic hosiery Consult Discharge Plan - Plan Referrals: Raudel Soto MD [Primary Care Provider] - Prescriptions: Amoxicillin/Clavulanate [Augmentin] 875 mg PO BIDWM 7 Days #14 tablet Transmission Status: Received by [facility] #[id number]
[2019-04-02] MEDS ORDERED: Budesonide/Formoterol 160/4.5 1 PUFF INH IH SCH (22:00)
[2019-04-03] MEDS ORDERED: Furosemide 20 MG TABLET PO SCH (09:00)
[2019-04-04 10:31] LABS: Lambda Qnt Free Light Chains 0.64 mg/dL (0.57-2.63)
[2019-04-05 16:13] LABS: Alpha 2 Globulin (PEP) 0.79 g/dL (0.48-1.05); Beta Globulin (PEP) 0.66 g/dL (0.48-1.10)
[2019-04-06 07:20] LABS: IFE Reflexed IFE Done; Immunoglobulin G 472 mg/dL (768-1632)
[2019-04-06 07:21] LABS: Immunoglobulin A 128 mg/dL (68-408); Immunoglobulin M 13 mg/dL (35-263)
== END 2019-04-02 14:37 | disposition home health service (06) | DRG 641 ==
LOC: EMEROOARM 22:31 → 2ANU 22:31 → SUATTDRO 03-31 01:03 → 2ANU 03-31 01:39 → SUATTDRO 04-01 12:48
PROVIDERS: ADMIT Internal Medicine; ATTEND Internal Medicine

== ENCOUNTER 2019-09-15 09:17 | Inpatient (IN) ==
[2019-09-15] MEDS ORDERED: Ketorolac 30 MG/ML VIAL IVP ONE (09:33)
[2019-09-15] MEDS ORDERED: Ipratropium/Albuterol Neb 3 ML IH STA (09:35)
[2019-09-15 10:03] LABS: Hemoglobin 13.1 g/dL (11.5-15.4); Mean Corpuscular HGB Conc 32.8 g/dL (31.6-35.5); Mean Corpuscular Hemoglobin 28.6 pg (28.0-33.3); Mean Corpuscular Volume 87.3 fL (83.0-100.0); Mean Platelet Volume 9.3 fL (9.4-12.4); Platelet Count 308 K/mcL (140-400); Red Blood Count 4.58 M/mcL (3.82-4.97); Red Cell Distribution Width 14.4 % (11.5-14.5); White Blood Count 8.7 K/mcL (4.3-11.1)
[2019-09-15 10:08] LABS: Prothrombin Time 10.8 Seconds (9.4-12.1)
[2019-09-15 10:11] LABS: Activated Partial Thrombo Time 30.4 Seconds (26.0-36.0)
[2019-09-15 10:25] LABS: Alanine Aminotransferase 11 Units/L (7-52); Albumin 3.7 g/dL (3.5-5.7); Albumin/Globulin Ratio 1.5 (1.1-2.2); Alkaline Phosphatase 61 Units/L (34-104); Aspartate Amino Transferase 12 Units/L (13-39); BUN/Creatinine Ratio 19 (6-26); Bilirubin,Total 0.4 mg/dL (0.3-1.0); Blood Urea Nitrogen 15 mg/dL (8-23); Calcium 9.1 mg/dL (8.6-10.3); Carbon Dioxide 24 mEq/L (23-29); Chloride 97 mEq/L (98-107); Globulin 2.5 g/dL (2.4-3.5); Glucose 180 mg/dL (70-105); Osmolality,Calculated 271 (280-300); Potassium 4.6 mEq/L (3.5-5.1); Sodium 128 mEq/L (136-145); Total Protein 6.2 g/dL (6.4-8.9); Troponin I < 0.03 ng/mL (< 0.04); eGFR For African Americans > 60 (> 60); eGFR For Non-African Americans > 60 (> 60)
[2019-09-15] MEDS ORDERED: 0.9 % Sodium Chloride 500 ML IVC ONE (10:37)
[2019-09-15] MEDS ORDERED: *HR* FentaNYL (PF) 100 MCG/2 ML VIAL IVP STA (11:04)
[2019-09-15] MEDS ORDERED: *HR* HYDROmorphone 2 MG TABLET PO ONE (12:00)
[2019-09-15 12:03] LABS: Bilirubin,Urine Negative (Negative); Blood,Urine Negative (Negative); Clarity,Urine Clear (Clear); Color,Urine Yellow (Yellow); Glucose,Urine (UA) Normal (Normal); Ketones,Urine Negative (Negative); Leukocyte Esterase,Urine Negative (Negative); Nitrite,Urine Negative (Negative); Protein,Urine Negative (Neg-Trace); Urobilinogen,Urine Normal (Normal)
[2019-09-15] MEDS ORDERED: Ondansetron 4 MG/2 ML VIAL IVP PRN (12:42)
[2019-09-15] MEDS ORDERED: Naloxone 0.4 MG/ML INJ IVP PRN (12:42)
[2019-09-15] MEDS ORDERED: D5% in Water 1,000 ML IVC PRN (12:46)
[2019-09-15] MEDS ORDERED: *HR* Dextrose 50 % in Water (Syg) 50 ML SYRINGE IVP PRN (12:46)
[2019-09-15] MEDS ORDERED: Dextrose Gel 15 GM/37.5 ML TUBE PO PRN ×2 (12:46)
[2019-09-15] MEDS ORDERED: Ipratropium/Albuterol Neb 3 ML IH PRN (12:46)
[2019-09-15] MEDS ORDERED: *HR* OxyCODONE/APAP 5/325 TABLET PO PRN (13:55)
[2019-09-15] MEDS ORDERED: Furosemide 20 MG TABLET PO PRN (13:55)
[2019-09-15] MEDS: Insulin LISPRO 300 UNITS/3 ML VIAL SQ SCH ×3 (14:37→20:20)
[2019-09-15] MEDS: *HR* Heparin 5,000 UNIT/ML VIAL SQ SCH ×2 (14:37→21:05)
[2019-09-15] MEDS: 0.9 % Sodium Chloride 1,000 ML IVC SCH (14:45)
[2019-09-15] MEDS ORDERED: Melatonin 3 MG TABLET PO ONE (22:28)
[2019-09-16 04:49] LABS: Basophils % 0.5 %; Eosinophils # 0.5 K/mcL (0.0-0.6); Eosinophils % 7.4 %; Hematocrit 35.5 % (35.3-44.9); Hemoglobin 11.8 g/dL (11.5-15.4); Immature Granulocytes % 0.6 % (0-4); Lymphocytes # 1.4 K/mcL (0.6-4.6); Mean Corpuscular HGB Conc 33.2 g/dL (31.6-35.5); Mean Corpuscular Hemoglobin 29.4 pg (28.0-33.3); Mean Corpuscular Volume 88.3 fL (83.0-100.0); Mean Platelet Volume 9.4 fL (9.4-12.4); Monocytes # 0.8 K/mcL (0.0-1.3); Monocytes % 11.7 %; Neutrophils # 3.8 K/mcL (1.6-8.9); Platelet Count 289 K/mcL (140-400); Red Blood Count 4.02 M/mcL (3.82-4.97); Red Cell Distribution Width 14.3 % (11.5-14.5); Segmented Neutrophils % 57.8 %; White Blood Count 6.5 K/mcL (4.3-11.1)
[2019-09-16 05:12] LABS: BUN/Creatinine Ratio 19 (6-26); Blood Urea Nitrogen 12 mg/dL (8-23); Calcium 8.1 mg/dL (8.6-10.3); Carbon Dioxide 23 mEq/L (23-29); Chloride 102 mEq/L (98-107); Chol/HDL Ratio 3.6 (0-4.9); Cholesterol 148 mg/dL (< 200); Glucose 94 mg/dL (70-105); HDL Cholesterol 41 mg/dL (40-59); LDL Cholesterol,Calculated 83 mg/dL (0-99); Magnesium 2.1 mg/dL (1.6-2.6); Osmolality,Calculated 270 (280-300); Phosphorous 3.1 mg/dL (2.7-4.5); Potassium 4.2 mEq/L (3.5-5.1); Sodium 130 mEq/L (136-145); Triglycerides 118 mg/dL (< 150); eGFR For African Americans > 60 (> 60); eGFR For Non-African Americans > 60 (> 60)
[2019-09-16 05:33] LABS: Folate 20.4 ng/mL (3.0-16.0)
[2019-09-16] MEDS: *HR* Heparin 5,000 UNIT/ML VIAL SQ SCH ×3 (06:03→21:03)
[2019-09-16] MEDS: Insulin LISPRO 300 UNITS/3 ML VIAL SQ SCH ×4 (07:40→21:03)
[2019-09-16] MEDS: 0.9 % Sodium Chloride 1,000 ML IVC SCH (07:57)
[2019-09-16] MEDS: Metoprolol XL (24 HR) Succ 50 MG TAB.ER.24H PO SCH (07:58)
[2019-09-16] MEDS ORDERED: Acetaminophen IV 500 MG/50 ML INFUS..BTL IVPB ONE (09:50)
[2019-09-16] MEDS: Budesonide/Formoterol 160/4.5 1 PUFF INH IH SCH (21:54)
[2019-09-17] MEDS: Acetaminophen 325 MG TABLET PO PRN ×2 (00:21→13:39)
[2019-09-17] MEDS: *HR* Heparin 5,000 UNIT/ML VIAL SQ SCH ×3 (05:12→21:19)
[2019-09-17 05:42] LABS: Hematocrit 37.3 % (35.3-44.9); Hemoglobin 12.3 g/dL (11.5-15.4); Mean Corpuscular Hemoglobin 29.4 pg (28.0-33.3); Mean Platelet Volume 9.6 fL (9.4-12.4); Platelet Count 281 K/mcL (140-400); Red Blood Count 4.19 M/mcL (3.82-4.97); Red Cell Distribution Width 14.2 % (11.5-14.5); White Blood Count 7.3 K/mcL (4.3-11.1)
[2019-09-17 05:58] LABS: BUN/Creatinine Ratio 21 (6-26); Blood Urea Nitrogen 13 mg/dL (8-23); Calcium 8.3 mg/dL (8.6-10.3); Carbon Dioxide 21 mEq/L (23-29); Chloride 101 mEq/L (98-107); Glucose 122 mg/dL (70-105); Osmolality,Calculated 267 (280-300); Potassium 4.2 mEq/L (3.5-5.1); Sodium 128 mEq/L (136-145); eGFR For African Americans > 60 (> 60); eGFR For Non-African Americans > 60 (> 60)
[2019-09-17] MEDS: Insulin LISPRO 300 UNITS/3 ML VIAL SQ SCH ×4 (07:46→21:18)
[2019-09-17] MEDS: Metoprolol XL (24 HR) Succ 50 MG TAB.ER.24H PO SCH (07:53)
[2019-09-17] MEDS: Budesonide/Formoterol 160/4.5 1 PUFF INH IH SCH ×2 (08:01→20:17)
[2019-09-17] MEDS ORDERED: Morphine Sulfate 2 MG/ML SYRINGE IVP ONE (14:26)
[2019-09-17] MEDS ORDERED: Gabapentin 300 MG CAPSULE PO SCH (21:00)
[2019-09-18 01:16] LABS: BUN/Creatinine Ratio 25 (6-26); Blood Urea Nitrogen 14 mg/dL (8-23); Calcium 8.3 mg/dL (8.6-10.3); Carbon Dioxide 24 mEq/L (23-29); Chloride 103 mEq/L (98-107); Glucose 74 mg/dL (70-105); Osmolality,Calculated 267 (280-300); Potassium 4.2 mEq/L (3.5-5.1); Sodium 129 mEq/L (136-145); eGFR For African Americans > 60 (> 60); eGFR For Non-African Americans > 60 (> 60)
[2019-09-18] MEDS: *HR* Heparin 5,000 UNIT/ML VIAL SQ SCH ×3 (03:10→21:24)
[2019-09-18] MEDS: Metoprolol XL (24 HR) Succ 50 MG TAB.ER.24H PO SCH (07:43)
[2019-09-18] MEDS ORDERED: *HR* HYDROmorphone (PF) 1 MG/ML SYRINGE IVP ONE (08:08)
[2019-09-18] MEDS: Insulin LISPRO 300 UNITS/3 ML VIAL SQ SCH ×4 (08:14→21:24)
[2019-09-18] MEDS: Budesonide/Formoterol 160/4.5 1 PUFF INH IH SCH ×2 (08:29→20:14)
[2019-09-18] MEDS: Ketorolac 15 MG/ML VIAL IVP PRN (13:00)
[2019-09-18] MEDS: Gabapentin 300 MG CAPSULE PO SCH (21:25)
[2019-09-19 04:15] LABS: BUN/Creatinine Ratio 27 (6-26); Blood Urea Nitrogen 16 mg/dL (8-23); Calcium 8.1 mg/dL (8.6-10.3); Carbon Dioxide 22 mEq/L (23-29); Chloride 105 mEq/L (98-107); Glucose 102 mg/dL (70-105); Osmolality,Calculated 271 (280-300); Potassium 4.2 mEq/L (3.5-5.1); Sodium 130 mEq/L (136-145); eGFR For African Americans > 60 (> 60); eGFR For Non-African Americans > 60 (> 60)
[2019-09-19] MEDS: *HR* Heparin 5,000 UNIT/ML VIAL SQ SCH ×3 (05:33→20:58)
[2019-09-19] MEDS: Ketorolac 15 MG/ML VIAL IVP PRN (06:52)
[2019-09-19] MEDS: Budesonide/Formoterol 160/4.5 1 PUFF INH IH SCH ×2 (07:16→20:17)
[2019-09-19] MEDS: Insulin LISPRO 300 UNITS/3 ML VIAL SQ SCH ×4 (08:06→20:50)
[2019-09-19] MEDS: Metoprolol XL (24 HR) Succ 50 MG TAB.ER.24H PO SCH (08:06)
[2019-09-19] MEDS: Gabapentin 300 MG CAPSULE PO SCH ×2 (08:06→20:42)
[2019-09-19] MEDS ORDERED: PrednisoLONE Oral Soln 15 MG/5 ML UDC PO SCH (09:15)
[2019-09-19] MEDS ORDERED: methylPREDNISolone 60 MG in 0.9 % Sodium Chloride 100 ML IVPB ONE (09:15)
[2019-09-19] MEDS ORDERED: Morphine Sulfate 2 MG/ML SYRINGE IVP PRN (10:21)
[2019-09-19] MEDS: methylPREDNISolone 125 MG/2 ML VIAL IVP SCH ×2 (10:58→20:42)
[2019-09-19] MEDS ORDERED: Gadolinium Contrast Agent (WT Based) IV PRN (13:02)
[2019-09-20 01:33] LABS: Hematocrit 38.5 % (35.3-44.9); Hemoglobin 12.8 g/dL (11.5-15.4); Mean Corpuscular HGB Conc 33.2 g/dL (31.6-35.5); Mean Corpuscular Hemoglobin 29.7 pg (28.0-33.3); Mean Corpuscular Volume 89.3 fL (83.0-100.0); Mean Platelet Volume 9.4 fL (9.4-12.4); Platelet Count 300 K/mcL (140-400); Red Blood Count 4.31 M/mcL (3.82-4.97); White Blood Count 5.1 K/mcL (4.3-11.1)
[2019-09-20 01:54] LABS: BUN/Creatinine Ratio 33 (6-26); Blood Urea Nitrogen 21 mg/dL (8-23); Calcium 8.2 mg/dL (8.6-10.3); Carbon Dioxide 21 mEq/L (23-29); Chloride 102 mEq/L (98-107); Glucose 211 mg/dL (70-105); Osmolality,Calculated 277 (280-300); Potassium 5.1 mEq/L (3.5-5.1); Sodium 129 mEq/L (136-145); eGFR For African Americans > 60 (> 60); eGFR For Non-African Americans > 60 (> 60)
[2019-09-20] MEDS: *HR* Heparin 5,000 UNIT/ML VIAL SQ SCH ×3 (05:10→21:35)
[2019-09-20] MEDS: Insulin LISPRO 300 UNITS/3 ML VIAL SQ SCH ×4 (08:40→21:32)
[2019-09-20] MEDS: Gabapentin 300 MG CAPSULE PO SCH ×2 (08:41→21:34)
[2019-09-20] MEDS: Metoprolol XL (24 HR) Succ 50 MG TAB.ER.24H PO SCH (08:41)
[2019-09-20] MEDS: methylPREDNISolone 125 MG/2 ML VIAL IVP SCH ×2 (08:42→21:35)
[2019-09-20] MEDS: Budesonide/Formoterol 160/4.5 1 PUFF INH IH SCH ×2 (09:32→19:50)
[2019-09-20] MEDS ORDERED: Insulin DETEMIR 100 UNIT/ML X5UNITS SQ SCH (21:00)
[2019-09-21] MEDS: *HR* Heparin 5,000 UNIT/ML VIAL SQ SCH ×3 (05:22→20:52)
[2019-09-21] MEDS: Budesonide/Formoterol 160/4.5 1 PUFF INH IH SCH ×2 (07:37→21:35)
[2019-09-21] MEDS: Metoprolol XL (24 HR) Succ 50 MG TAB.ER.24H PO SCH (07:51)
[2019-09-21] MEDS: Cholecalciferol (D-3) 1,000 UNIT (25MCG) TABLET PO SCH (07:51)
[2019-09-21] MEDS: Gabapentin 300 MG CAPSULE PO SCH ×2 (07:52→20:51)
[2019-09-21] MEDS: Pantoprazole 40 MG VIAL IVP SCH (07:52)
[2019-09-21] MEDS: Insulin LISPRO 300 UNITS/3 ML VIAL SQ SCH ×4 (07:56→20:54)
[2019-09-21] MEDS: methylPREDNISolone 125 MG/2 ML VIAL IVP SCH ×2 (09:38→20:53)
[2019-09-21] MEDS: Insulin DETEMIR 100 UNIT/ML X5UNITS SQ SCH ×2 (12:09→20:53)
[2019-09-22 05:02] LABS: BUN/Creatinine Ratio 48 (6-26); Blood Urea Nitrogen 41 mg/dL (8-23); Calcium 8.5 mg/dL (8.6-10.3); Carbon Dioxide 24 mEq/L (23-29); Chloride 104 mEq/L (98-107); Glucose 188 mg/dL (70-105); Osmolality,Calculated 291 (280-300); Potassium 4.8 mEq/L (3.5-5.1); Sodium 133 mEq/L (136-145); eGFR For African Americans > 60 (> 60); eGFR For Non-African Americans > 60 (> 60)
[2019-09-22] MEDS: *HR* Heparin 5,000 UNIT/ML VIAL SQ SCH (05:44)
[2019-09-22 07:48] VITALS: BP 129/70
[2019-09-22] MEDS: Insulin LISPRO 300 UNITS/3 ML VIAL SQ SCH (09:30)
[2019-09-22] MEDS: Pantoprazole 40 MG VIAL IVP SCH (09:31)
[2019-09-22] MEDS: Gabapentin 300 MG CAPSULE PO SCH (09:31)
[2019-09-22] MEDS: Metoprolol XL (24 HR) Succ 50 MG TAB.ER.24H PO SCH (09:31)
[2019-09-22] MEDS: methylPREDNISolone 125 MG/2 ML VIAL IVP SCH (09:31)
[2019-09-22] MEDS: Cholecalciferol (D-3) 1,000 UNIT (25MCG) TABLET PO SCH (09:31)
[2019-09-22] MEDS: Insulin DETEMIR 100 UNIT/ML X5UNITS SQ SCH (09:33)
== END 2019-09-22 10:10 | disposition critical access hospital (66) | DRG 552 ==
LOC: EMEROOARM 09:17 → 3BNU 09:17
PROVIDERS: ADMIT Family Medicine; ATTEND Family Medicine

== ENCOUNTER 2020-07-12 09:23 | Inpatient (IN) ==
[2020-07-12] MEDS ORDERED: Piperacillin/Tazobactam 3.375 GM in Water for inj. (sterile) 20 ML IVP ONE (09:38)
[2020-07-12] MEDS ORDERED: Vancomycin 1,000 MG VIAL IVPB ONE (09:38)
[2020-07-12] MEDS ORDERED: 0.9 % Sodium Chloride 1,000 ML IVC ONE ×2 (09:38→12:04)
[2020-07-12] MEDS ORDERED: Isovue-370 500 ML BOTTLE IVP ONE (09:55)
[2020-07-12] MEDS ORDERED: Vancomycin 1,250 MG/262.5 ML IV.SOLN IVPB ONE (09:55)
[2020-07-12 10:41] LABS: Basophils # 0.1 K/mcL (0.0-0.2); Basophils % 0.5 %; Eosinophils % 0.2 %; Hematocrit 36.3 % (35.3-44.9); Hemoglobin 11.4 g/dL (11.5-15.4); Immature Granulocytes % 0.8 % (0-4); Lymphocytes # 0.8 K/mcL (0.6-4.6); Lymphocytes % 6.6 %; Mean Corpuscular HGB Conc 31.4 g/dL (31.6-35.5); Mean Corpuscular Hemoglobin 28.9 pg (28.0-33.3); Mean Corpuscular Volume 92.1 fL (83.0-100.0); Monocytes % 8.3 %; Neutrophils # 10.4 K/mcL (1.6-8.9); Platelet Count 375 K/mcL (140-400); Red Blood Count 3.94 M/mcL (3.82-4.97); Red Cell Distribution Width 13.5 % (11.5-14.5); Segmented Neutrophils % 83.6 %; White Blood Count 12.5 K/mcL (4.3-11.1)
[2020-07-12 10:45] LABS: INR 1.1; Prothrombin Time 12.8 Seconds (9.4-12.1)
[2020-07-12] MEDS ORDERED: Ipratropium/Albuterol Neb 3 ML IH ONE (10:55)
[2020-07-12 11:00] LABS: BUN/Creatinine Ratio 17 (6-26); Blood Urea Nitrogen 28 mg/dL (8-23); Calcium 8.6 mg/dL (8.6-10.3); Carbon Dioxide 27 mEq/L (23-29); Chloride 90 mEq/L (98-107); Glucose 128 mg/dL (70-105); Osmolality,Calculated 269 (280-300); Sodium 126 mEq/L (136-145); eGFR For African Americans 36 (> 60); eGFR For Non-African Americans 30 (> 60)
[2020-07-12 11:01] LABS: Troponin I < 0.03 ng/mL (< 0.04)
[2020-07-12] MEDS ORDERED: Ondansetron 4 MG/2 ML VIAL IVP PRN (13:15)
[2020-07-12] MEDS ORDERED: Naloxone 0.4 MG/ML INJ IVP PRN (13:15)
[2020-07-12] MEDS ORDERED: 0.9 % Sodium Chloride 1,000 ML IVC SCH (13:30)
[2020-07-12 13:53] LABS: Adenovirus Not Detected (Not Detect); Coronavirus 229E Not Detected (Not Detect); Coronavirus HKU1 Not Detected (Not Detect); Coronavirus NL63 Not Detected (Not Detect); Coronavirus OC43 Not Detected (Not Detect); Human Metapneumovirus Not Detected (Not Detect); Human Rhinovirus/Enterovirus Not Detected (Not Detect); Influenza A Subtype 2009 H1 Not Detected (Not Detect); SARS-CoV-2 Not Detected (Not Detect)
[2020-07-12 13:54] LABS: Bordetella Pertussis Not Detected (Not Detect); Chlamydophila pneumoniae Not Detected (Not Detect); Influenza B Not Detected (Not Detect); Mycoplasma pneumoniae Not Detected (Not Detect); Parainfluenza Virus 1 Not Detected (Not Detect); Parainfluenza Virus 2 Not Detected (Not Detect); Parainfluenza Virus 3 Not Detected (Not Detect); Parainfluenza Virus 4 Not Detected (Not Detect); Respiratory Syncytial Virus Not Detected (Not Detect)
[2020-07-12] MEDS ORDERED: Dextrose Gel 15 GM/37.5 ML TUBE PO PRN ×2 (15:10)
[2020-07-12] MEDS ORDERED: D5% in Water 1,000 ML IVC PRN (15:10)
[2020-07-12] MEDS ORDERED: *HR* Dextrose 50 % in Water (Vial) 50 ML VIAL IVP PRN (15:10)
[2020-07-12] MEDS: Azithromycin 500 MG in 0.9 % Sodium Chloride 250 ML IVPB SCH (16:47)
[2020-07-12] MEDS: Insulin LISPRO 300 UNITS/3 ML VIAL SUBQ SCH (18:24)
[2020-07-12] MEDS: MethylPREDNISolone 40 MG/ML VIAL IVP SCH (18:31)
[2020-07-12] MEDS: cefTRIAXone 1,000 MG in Water for inj. (sterile) 10 ML IVP SCH (20:07)
[2020-07-12] MEDS: Insulin DETEMIR 100 UNIT/ML X5UNITS SUBQ SCH ×2 (20:07→20:27)
[2020-07-13] MEDS: MethylPREDNISolone 40 MG/ML VIAL IVP SCH ×2 (05:18→17:53)
[2020-07-13 06:07] LABS: Basophils % 0.1 %; Hematocrit 34.3 % (35.3-44.9); Hemoglobin 10.4 g/dL (11.5-15.4); Immature Granulocytes % 0.8 % (0-4); Lymphocytes # 0.5 K/mcL (0.6-4.6); Lymphocytes % 6.9 %; Mean Corpuscular HGB Conc 30.3 g/dL (31.6-35.5); Mean Corpuscular Hemoglobin 28.3 pg (28.0-33.3); Mean Corpuscular Volume 93.2 fL (83.0-100.0); Mean Platelet Volume 8.8 fL (9.4-12.4); Monocytes # 0.2 K/mcL (0.0-1.3); Monocytes % 2.2 %; Neutrophils # 6.5 K/mcL (1.6-8.9); Platelet Count 339 K/mcL (140-400); Red Blood Count 3.68 M/mcL (3.82-4.97); Red Cell Distribution Width 13.7 % (11.5-14.5); White Blood Count 7.2 K/mcL (4.3-11.1)
[2020-07-13 06:08] LABS: C-Reactive Protein 54 mg/L (Less than 10); Lactate Dehydrogenase 159 Units/L (140-271)
[2020-07-13 06:09] LABS: BUN/Creatinine Ratio 27 (6-26); Blood Urea Nitrogen 28 mg/dL (8-23); Calcium 7.5 mg/dL (8.6-10.3); Carbon Dioxide 21 mEq/L (23-29); Chloride 98 mEq/L (98-107); Glucose 211 mg/dL (70-105); Osmolality,Calculated 278 (280-300); Potassium 5.3 mEq/L (3.5-5.1); Sodium 128 mEq/L (136-145); eGFR For African Americans > 60 (> 60); eGFR For Non-African Americans 51 (> 60)
[2020-07-13] MEDS: Insulin LISPRO 300 UNITS/3 ML VIAL SUBQ SCH ×3 (08:32→17:54)
[2020-07-13] MEDS: Cholecalciferol (D-3) 1,000 UNIT (25MCG) TABLET PO SCH (09:22)
[2020-07-13] MEDS: (Leflunomide [Arava] 20 MG) PO SCH (09:23)
[2020-07-13] MEDS: *HR* Heparin 5,000 UNIT/ML VIAL SQ SCH ×2 (11:12→12:46)
[2020-07-13] MEDS: Budesonide/Formoterol 160/4.5 1 PUFF INH IH SCH ×2 (11:17→20:03)
[2020-07-13] MEDS ORDERED: Furosemide 40 MG/4 ML VIAL IVP ONE (11:33)
[2020-07-13] MEDS ORDERED: Furosemide 40 MG/4 ML VIAL ONE (12:54)
[2020-07-13] MEDS: Azithromycin 500 MG in 0.9 % Sodium Chloride 250 ML IVPB SCH (14:04)
[2020-07-13] MEDS: Ipratropium/Albuterol Neb 3 ML IH SCH ×3 (15:36→23:48)
[2020-07-13 18:39] LABS: BUN/Creatinine Ratio 33 (6-26); Blood Urea Nitrogen 29 mg/dL (8-23); Carbon Dioxide 24 mEq/L (23-29); Chloride 98 mEq/L (98-107); Glucose 207 mg/dL (70-105); Osmolality,Calculated 288 (280-300); Potassium 4.3 mEq/L (3.5-5.1); Sodium 133 mEq/L (136-145); eGFR For African Americans > 60 (> 60); eGFR For Non-African Americans > 60 (> 60)
[2020-07-13] MEDS: Insulin DETEMIR 100 UNIT/ML X5UNITS SUBQ SCH (20:00)
[2020-07-13] MEDS: cefTRIAXone 1,000 MG in Water for inj. (sterile) 10 ML IVP SCH (20:00)
[2020-07-13] MEDS: Gabapentin 400 MG CAPSULE PO SCH (20:01)
[2020-07-14] MEDS: Ipratropium/Albuterol Neb 3 ML IH SCH ×6 (03:30→23:51)
[2020-07-14] MEDS: MethylPREDNISolone 40 MG/ML VIAL IVP SCH ×2 (05:17→16:49)
[2020-07-14] MEDS: *HR* Heparin 5,000 UNIT/ML VIAL SQ SCH ×2 (05:18→16:49)
[2020-07-14 05:41] LABS: Hematocrit 30.7 % (35.3-44.9); Hemoglobin 9.7 g/dL (11.5-15.4); Immature Granulocytes % 0.6 % (0-4); Lymphocytes # 0.6 K/mcL (0.6-4.6); Lymphocytes % 10.2 %; Mean Corpuscular HGB Conc 31.6 g/dL (31.6-35.5); Mean Corpuscular Volume 91.6 fL (83.0-100.0); Mean Platelet Volume 8.9 fL (9.4-12.4); Monocytes # 0.6 K/mcL (0.0-1.3); Monocytes % 8.7 %; Neutrophils # 5.1 K/mcL (1.6-8.9); Platelet Count 346 K/mcL (140-400); Red Blood Count 3.35 M/mcL (3.82-4.97); Red Cell Distribution Width 13.6 % (11.5-14.5); Segmented Neutrophils % 80.5 %; White Blood Count 6.3 K/mcL (4.3-11.1)
[2020-07-14 06:01] LABS: BUN/Creatinine Ratio 34 (6-26); Blood Urea Nitrogen 30 mg/dL (8-23); Calcium 7.9 mg/dL (8.6-10.3); Carbon Dioxide 25 mEq/L (23-29); Chloride 102 mEq/L (98-107); Glucose 191 mg/dL (70-105); Osmolality,Calculated 293 (280-300); Potassium 4.6 mEq/L (3.5-5.1); Sodium 136 mEq/L (136-145); eGFR For African Americans > 60 (> 60); eGFR For Non-African Americans > 60 (> 60)
[2020-07-14] MEDS: Budesonide/Formoterol 160/4.5 1 PUFF INH IH SCH ×2 (08:09→20:22)
[2020-07-14] MEDS: Cholecalciferol (D-3) 1,000 UNIT (25MCG) TABLET PO SCH (08:20)
[2020-07-14] MEDS: (Leflunomide [Arava] 20 MG) PO SCH (08:21)
[2020-07-14] MEDS: Insulin LISPRO 300 UNITS/3 ML VIAL SUBQ SCH ×3 (08:21→16:49)
[2020-07-14] MEDS: Furosemide 20 MG TABLET PO SCH (09:26)
[2020-07-14 09:56] LABS: % Iron Saturation 21 % (15-50); Iron 65 mcg/dL (50-170); Transferrin 223 mg/dL (203-362)
[2020-07-14 10:14] LABS: Ferritin 153 ng/mL (10-120)
[2020-07-14 10:19] LABS: Folate 8.6 ng/mL (3.0-16.0)
[2020-07-14 10:50] LABS: Estimated Average Glucose 194 mg/dl; Hemoglobin A1C 8.4 %
[2020-07-14] MEDS: Azithromycin 250 MG TABLET PO SCH (14:48)
[2020-07-14] MEDS: Insulin DETEMIR 100 UNIT/ML X5UNITS SUBQ SCH (20:41)
[2020-07-14] MEDS: Gabapentin 400 MG CAPSULE PO SCH (20:42)
[2020-07-14] MEDS: cefTRIAXone 1,000 MG in Water for inj. (sterile) 10 ML IVP SCH (22:56)
[2020-07-15] MEDS: Ipratropium/Albuterol Neb 3 ML IH SCH ×6 (03:54→23:35)
[2020-07-15] MEDS: MethylPREDNISolone 40 MG/ML VIAL IVP SCH ×2 (05:05→17:36)
[2020-07-15] MEDS: *HR* Heparin 5,000 UNIT/ML VIAL SQ SCH ×2 (05:05→17:39)
[2020-07-15 07:00] LABS: Basophils % 0.2 %; Hematocrit 31.3 % (35.3-44.9); Hemoglobin 9.7 g/dL (11.5-15.4); Immature Granulocytes % 0.5 % (0-4); Lymphocytes # 0.6 K/mcL (0.6-4.6); Lymphocytes % 10.7 %; Mean Corpuscular Hemoglobin 28.1 pg (28.0-33.3); Mean Corpuscular Volume 90.7 fL (83.0-100.0); Mean Platelet Volume 8.9 fL (9.4-12.4); Monocytes # 0.3 K/mcL (0.0-1.3); Monocytes % 5.4 %; Neutrophils # 4.8 K/mcL (1.6-8.9); Platelet Count 390 K/mcL (140-400); Red Blood Count 3.45 M/mcL (3.82-4.97); Red Cell Distribution Width 13.6 % (11.5-14.5); Segmented Neutrophils % 83.2 %; White Blood Count 5.8 K/mcL (4.3-11.1)
[2020-07-15 07:15] LABS: BUN/Creatinine Ratio 41 (6-26); Blood Urea Nitrogen 34 mg/dL (8-23); Calcium 8.4 mg/dL (8.6-10.3); Carbon Dioxide 28 mEq/L (23-29); Chloride 99 mEq/L (98-107); Glucose 226 mg/dL (70-105); Osmolality,Calculated 289 (280-300); Phosphorous 2.9 mg/dL (2.7-4.5); Potassium 5.4 mEq/L (3.5-5.1); Sodium 132 mEq/L (136-145); eGFR For African Americans > 60 (> 60); eGFR For Non-African Americans > 60 (> 60)
[2020-07-15] MEDS: Cholecalciferol (D-3) 1,000 UNIT (25MCG) TABLET PO SCH (08:11)
[2020-07-15] MEDS: Furosemide 20 MG TABLET PO SCH ×2 (08:11→17:36)
[2020-07-15] MEDS: Insulin LISPRO 300 UNITS/3 ML VIAL SUBQ SCH ×3 (08:14→17:40)
[2020-07-15] MEDS: (Leflunomide [Arava] 20 MG) PO SCH (08:21)
[2020-07-15] MEDS: Budesonide/Formoterol 160/4.5 1 PUFF INH IH SCH ×2 (08:36→20:05)
[2020-07-15] MEDS ORDERED: Furosemide 20 MG/2 ML VIAL IVP ONE (12:29)
[2020-07-15 13:30] LABS: BUN/Creatinine Ratio 35 (6-26); Blood Urea Nitrogen 33 mg/dL (8-23); Carbon Dioxide 27 mEq/L (23-29); Chloride 96 mEq/L (98-107); Glucose 288 mg/dL (70-105); Osmolality,Calculated 292 (280-300); Potassium 5.1 mEq/L (3.5-5.1); Sodium 132 mEq/L (136-145); eGFR For African Americans > 60 (> 60); eGFR For Non-African Americans 58 (> 60)
[2020-07-15] MEDS: Azithromycin 250 MG TABLET PO SCH (14:21)
[2020-07-15 16:01] LABS: Adenovirus F 40/41 PCR Not detected (Not detect); Astrovirus PCR Not detected (Not detect); C.difficile Toxin A/B Gene PCR Not detected (Not detect); Campylobacter by PCR Not detected (Not detect); Cryptosporidium by PCR Not detected (Not detect); Cyclospora cayetanensis PCR Not detected (Not detect); E. coli O157 by PCR Not detected (Not detect); Entamoeba histolytica PCR Not detected (Not detect); Enteroaggregative E.coli(EAEC) Not detected (Not detect); Enteropathogenic E.coli(EPEC) Not detected (Not detect); Enterotoxigenic E.coli (ETEC) Not detected (Not detect); Giardia lamblia PCR Not detected (Not detect); Norovirus GI/GII PCR Not detected (Not detect); Plesiomonas shigelloides PCR Not detected (Not detect); Rotavirus A PCR Not detected (Not detect); Salmonella PCR Not detected (Not detect); Sapovirus PCR Not detected (Not detect); Shig/EnteroinvasiveE coli EIEC Not detected (Not detect); Shigalike tox-prod E coli STEC Not detected (Not detect); Vibrio PCR Not detected (Not detect); Vibrio cholerae PCR Not detected (Not detect); Yersinia enterocolitica PCR Not detected (Not detect)
[2020-07-15] MEDS: cefTRIAXone 1,000 MG in Water for inj. (sterile) 10 ML IVP SCH (20:27)
[2020-07-15] MEDS: Gabapentin 400 MG CAPSULE PO SCH (20:27)
[2020-07-15] MEDS ORDERED: Insulin DETEMIR 100 UNIT/ML X5UNITS SUBQ SCH (21:00)
[2020-07-15] MEDS ORDERED: Insulin LISPRO 300 UNITS/3 ML VIAL SUBQ SCH (21:00)
[2020-07-16 04:11] LABS: Eosinophils % 0.2 %; Hematocrit 35.9 % (35.3-44.9); Immature Granulocytes % 0.8 % (0-4); Lymphocytes % 12.7 %; Mean Corpuscular HGB Conc 31.8 g/dL (31.6-35.5); Mean Corpuscular Hemoglobin 28.8 pg (28.0-33.3); Mean Corpuscular Volume 90.7 fL (83.0-100.0); Mean Platelet Volume 9.6 fL (9.4-12.4); Monocytes # 0.3 K/mcL (0.0-1.3); Monocytes % 6.7 %; Platelet Count 291 K/mcL (140-400); Red Blood Count 3.96 M/mcL (3.82-4.97); Red Cell Distribution Width 13.2 % (11.5-14.5); Segmented Neutrophils % 79.6 %; White Blood Count 5.1 K/mcL (4.3-11.1)
[2020-07-16 04:12] LABS: Hemoglobin 11.4 g/dL (11.5-15.4); Lymphocytes # 0.7 K/mcL (0.6-4.6); Neutrophils # 4.1 K/mcL (1.6-8.9)
[2020-07-16 04:31] LABS: BUN/Creatinine Ratio 44 (6-26); Blood Urea Nitrogen 37 mg/dL (8-23); Calcium 8.8 mg/dL (8.6-10.3); Carbon Dioxide 30 mEq/L (23-29); Chloride 93 mEq/L (98-107); Glucose 130 mg/dL (70-105); Magnesium 1.9 mg/dL (1.6-2.6); Osmolality,Calculated 282 (280-300); Phosphorous 3.6 mg/dL (2.7-4.5); Potassium 4.8 mEq/L (3.5-5.1); Sodium 131 mEq/L (136-145); eGFR For African Americans > 60 (> 60); eGFR For Non-African Americans > 60 (> 60)
[2020-07-16] MEDS: *HR* Heparin 5,000 UNIT/ML VIAL SQ SCH (05:31)
[2020-07-16] MEDS: Insulin LISPRO 300 UNITS/3 ML VIAL SUBQ SCH ×2 (07:38→12:57)
[2020-07-16] MEDS: (Leflunomide [Arava] 20 MG) PO SCH (07:40)
[2020-07-16] MEDS: Furosemide 20 MG TABLET PO SCH (07:54)
[2020-07-16] MEDS: Cholecalciferol (D-3) 1,000 UNIT (25MCG) TABLET PO SCH (07:54)
[2020-07-16] MEDS ORDERED: lisinopriL 5 MG TABLET PO SCH (09:00)
[2020-07-16] MEDS: Budesonide/Formoterol 160/4.5 1 PUFF INH IH SCH (09:00)
[2020-07-16] MEDS ORDERED: predniSONE 20 MG TABLET PO SCH (09:00)
[2020-07-16 11:56] VITALS: BP 104/78
[2020-07-16] MEDS: Azithromycin 250 MG TABLET PO SCH (15:09)
== END 2020-07-16 17:07 | disposition home health service (06) | DRG 871 ==
LOC: 3BNU 09:23 → EMEROOARM 09:23 → SUATTDRO 14:04 → 3BNU 15:30
PROVIDERS: ADMIT Internal Medicine; ATTEND Internal Medicine

== ENCOUNTER 2020-11-24 20:53 | Observation (INO) ==
[2020-11-24 22:10] LABS: Basophils % 0.5 %; Eosinophils # 0.5 K/mcL (0.0-0.6); Eosinophils % 7.1 %; Hematocrit 28.7 % (35.3-44.9); Hemoglobin 8.9 g/dL (11.5-15.4); Immature Granulocytes % 0.5 % (0-4); Lymphocytes # 1.6 K/mcL (0.6-4.6); Mean Corpuscular Hemoglobin 28.8 pg (28.0-33.3); Mean Corpuscular Volume 92.9 fL (83.0-100.0); Mean Platelet Volume 9.6 fL (9.4-12.4); Monocytes # 0.8 K/mcL (0.0-1.3); Monocytes % 11.6 %; Neutrophils # 3.6 K/mcL (1.6-8.9); Platelet Count 282 K/mcL (140-400); Red Blood Count 3.09 M/mcL (3.82-4.97); Red Cell Distribution Width 14.3 % (11.5-14.5); Segmented Neutrophils % 55.3 %; White Blood Count 6.5 K/mcL (4.3-11.1)
[2020-11-24 22:25] LABS: Prothrombin Time 11.7 Seconds (9.4-12.1)
[2020-11-24 22:36] LABS: Alanine Aminotransferase 7 Units/L (7-52); Albumin 3.5 g/dL (3.5-5.7); Albumin/Globulin Ratio 1.3 (1.1-2.2); Alkaline Phosphatase 44 Units/L (34-104); Aspartate Amino Transferase 10 Units/L (13-39); BUN/Creatinine Ratio 30 (6-26); Bilirubin,Indirect 0.2 mg/dL (0.0-1.0); Bilirubin,Total 0.2 mg/dL (0.3-1.0); Blood Urea Nitrogen 33 mg/dL (8-23); Calcium 8.2 mg/dL (8.6-10.3); Carbon Dioxide 22 mEq/L (23-29); Chloride 100 mEq/L (98-107); Globulin 2.6 g/dL (2.4-3.5); Glucose 183 mg/dL (70-105); Osmolality,Calculated 282 (280-300); Potassium 4.7 mEq/L (3.5-5.1); Sodium 130 mEq/L (136-145); Total Protein 6.1 g/dL (6.4-8.9); Troponin I < 0.03 ng/mL (< 0.04); eGFR For African Americans 59 (> 60); eGFR For Non-African Americans 48 (> 60)
[2020-11-24] MEDS ORDERED: Ipratropium/Albuterol Neb 3 ML IH ONE (22:59)
[2020-11-24] MEDS ORDERED: methylPREDNISolone 125 MG/2 ML VIAL IVP ONE (23:01)
[2020-11-25] MEDS ORDERED: Albuterol 2.5 MG/3 ML NEBULIZER IH PRN (02:54)
[2020-11-25] MEDS ORDERED: *HR* Dextrose 50 % in Water (Vial) 50 ML VIAL IVP PRN (03:00)
[2020-11-25] MEDS ORDERED: Naloxone 0.4 MG/ML INJ IVP PRN (03:00)
[2020-11-25] MEDS ORDERED: Dextrose Gel 15 GM/37.5 ML TUBE PO PRN ×2 (03:00)
[2020-11-25] MEDS ORDERED: Melatonin 3 MG TABLET PO PRN (03:00)
[2020-11-25] MEDS ORDERED: Acetaminophen 325 MG TABLET PO PRN (03:00)
[2020-11-25] MEDS ORDERED: D5% in Water 1,000 ML IVC PRN (03:00)
[2020-11-25] MEDS ORDERED: Perflutren Lipid Microsphere 1.3 ML in 0.9 % Sodium Chloride 8.7 ML IVP PRN (03:01)
[2020-11-25] MEDS: Albuterol 2.5 MG/3 ML NEBULIZER IH SCH ×6 (04:19→22:52)
[2020-11-25 05:52] LABS: Basophils % 0.3 %; Eosinophils % 0.2 %; Mean Corpuscular Volume 92.3 fL (83.0-100.0); Monocytes % 1.5 %
[2020-11-25 05:53] LABS: Hematocrit 29.9 % (35.3-44.9); Hemoglobin 9.4 g/dL (11.5-15.4); Immature Granulocytes % 0.7 % (0-4); Lymphocytes # 0.4 K/mcL (0.6-4.6); Lymphocytes % 7.2 %; Mean Corpuscular HGB Conc 31.4 g/dL (31.6-35.5); Mean Platelet Volume 10.1 fL (9.4-12.4); Monocytes # 0.1 K/mcL (0.0-1.3); Neutrophils # 5.5 K/mcL (1.6-8.9); Platelet Count 291 K/mcL (140-400); Red Blood Count 3.24 M/mcL (3.82-4.97); Segmented Neutrophils % 90.1 %; White Blood Count 6.1 K/mcL (4.3-11.1)
[2020-11-25 06:10] LABS: BUN/Creatinine Ratio 30 (6-26); Blood Urea Nitrogen 30 mg/dL (8-23); Calcium 8.1 mg/dL (8.6-10.3); Carbon Dioxide 21 mEq/L (23-29); Chloride 104 mEq/L (98-107); Glucose 257 mg/dL (70-105); Osmolality,Calculated 289 (280-300); Potassium 5.2 mEq/L (3.5-5.1); Sodium 132 mEq/L (136-145); eGFR For African Americans > 60 (> 60); eGFR For Non-African Americans 54 (> 60)
[2020-11-25] MEDS: Furosemide 40 MG/4 ML VIAL IVP SCH (07:57)
[2020-11-25] MEDS: Insulin LISPRO 300 UNITS/3 ML VIAL SUBQ SCH ×4 (07:57→17:46)
[2020-11-25] MEDS: predniSONE 20 MG TABLET PO SCH (07:58)
[2020-11-25] MEDS: lisinopriL 5 MG TABLET PO SCH (07:58)
[2020-11-25] MEDS: Azithromycin 250 MG TABLET PO SCH (07:58)
[2020-11-25] MEDS: Leflunomide [Arava] 20 MG PO SCH (07:59)
[2020-11-25] MEDS ORDERED: Isovue-370 500 ML BOTTLE IVP ONE (11:25)
[2020-11-25 12:51] LABS: Adenovirus Not Detected (Not Detect); Bordetella Pertussis Not Detected (Not Detect); Chlamydophila pneumoniae Not Detected (Not Detect); Coronavirus 229E Not Detected (Not Detect); Coronavirus HKU1 Not Detected (Not Detect); Coronavirus NL63 Not Detected (Not Detect); Coronavirus OC43 Not Detected (Not Detect); Human Metapneumovirus Not Detected (Not Detect); Human Rhinovirus/Enterovirus Not Detected (Not Detect); Influenza A Subtype 2009 H1 Not Detected (Not Detect); Influenza B Not Detected (Not Detect); Mycoplasma pneumoniae Not Detected (Not Detect); Parainfluenza Virus 1 Not Detected (Not Detect); Parainfluenza Virus 2 Not Detected (Not Detect); Parainfluenza Virus 3 Not Detected (Not Detect); Parainfluenza Virus 4 Not Detected (Not Detect); Respiratory Syncytial Virus Not Detected (Not Detect); SARS-CoV-2 Not Detected (Not Detect)
[2020-11-25] MEDS: Nicotine 21 MG PATCH.TD24 TD SCH (16:04)
[2020-11-25] MEDS: Budesonide/Formoterol 160/4.5 1 PUFF INH IH SCH (19:52)
[2020-11-25] MEDS ORDERED: Insulin LISPRO 300 UNITS/3 ML VIAL SUBQ SCH ×2 (21:00)
[2020-11-25] MEDS ORDERED: Gabapentin 400 MG CAPSULE PO SCH (21:00)
[2020-11-26] MEDS: Albuterol 2.5 MG/3 ML NEBULIZER IH SCH ×3 (03:57→11:17)
[2020-11-26 06:30] VITALS: BP 116/65
[2020-11-26] MEDS: Budesonide/Formoterol 160/4.5 1 PUFF INH IH SCH (07:02)
[2020-11-26] MEDS: Insulin LISPRO 300 UNITS/3 ML VIAL SUBQ SCH (08:19)
[2020-11-26] MEDS: Azithromycin 250 MG TABLET PO SCH (08:27)
[2020-11-26] MEDS: Furosemide 40 MG/4 ML VIAL IVP SCH (08:28)
[2020-11-26] MEDS: lisinopriL 5 MG TABLET PO SCH (08:28)
[2020-11-26] MEDS: Leflunomide [Arava] 20 MG PO SCH (08:30)
[2020-11-26] MEDS: Nicotine 21 MG PATCH.TD24 TD SCH (08:30)
[2020-11-26] MEDS: predniSONE 20 MG TABLET PO SCH (08:36)
== END 2020-11-26 12:11 | disposition home health service (06) ==
LOC: EMEROOARM 20:53 → 3BNU 20:53 → SUATTDRO 11-25 01:48 → 3BNU 11-25 02:01
PROVIDERS: ADMIT Internal Medicine; ATTEND Registered Nurse

== ENCOUNTER 2020-12-20 23:51 | Inpatient (IN) ==
[2020-12-20] MEDS ORDERED: Ipratropium/Albuterol Neb 3 ML IH ONE (23:55)
[2020-12-20] MEDS ORDERED: methylPREDNISolone 125 MG/2 ML VIAL IVP ONE (23:55)
[2020-12-21] MEDS ORDERED: *HR* FentaNYL (PF) 100 MCG/2 ML VIAL IVP ONE (00:30)
[2020-12-21] MEDS ORDERED: Isovue-370 500 ML BOTTLE IVP ONE (00:37)
[2020-12-21] MEDS ORDERED: Ipratropium/Albuterol Neb 3 ML IH ONE (01:37)
[2020-12-21] MEDS ORDERED: *HR* HYDROmorphone (PF) 1 MG/ML SYRINGE IVP ONE (01:37)
[2020-12-21 01:56] LABS: Basophils % 0.6 %; Eosinophils # 0.4 K/mcL (0.0-0.6); Eosinophils % 6.4 %; Hematocrit 30.7 % (35.3-44.9); Hemoglobin 9.4 g/dL (11.5-15.4); Immature Granulocytes % 0.9 % (0-4); Lymphocytes # 1.5 K/mcL (0.6-4.6); Lymphocytes % 22.9 %; Mean Corpuscular HGB Conc 30.6 g/dL (31.6-35.5); Mean Corpuscular Hemoglobin 28.8 pg (28.0-33.3); Mean Corpuscular Volume 94.2 fL (83.0-100.0); Mean Platelet Volume 9.3 fL (9.4-12.4); Monocytes # 0.9 K/mcL (0.0-1.3); Monocytes % 13.7 %; Neutrophils # 3.6 K/mcL (1.6-8.9); Platelet Count 283 K/mcL (140-400); Red Blood Count 3.26 M/mcL (3.82-4.97); Red Cell Distribution Width 13.8 % (11.5-14.5); Segmented Neutrophils % 55.5 %; White Blood Count 6.4 K/mcL (4.3-11.1)
[2020-12-21 02:16] LABS: Alanine Aminotransferase 8 Units/L (7-52); Albumin 3.3 g/dL (3.5-5.7); Albumin/Globulin Ratio 1.5 (1.1-2.2); Alkaline Phosphatase 45 Units/L (34-104); Aspartate Amino Transferase 10 Units/L (13-39); BUN/Creatinine Ratio 24 (6-26); Bilirubin,Indirect 0.2 mg/dL (0.0-1.0); Bilirubin,Total 0.2 mg/dL (0.3-1.0); Blood Urea Nitrogen 23 mg/dL (8-23); Calcium 7.7 mg/dL (8.6-10.3); Carbon Dioxide 21 mEq/L (23-29); Chloride 102 mEq/L (98-107); Globulin 2.2 g/dL (2.4-3.5); Glucose 125 mg/dL (70-105); Lipase 19 Units/L (11-82); Osmolality,Calculated 275 (280-300); Potassium 4.4 mEq/L (3.5-5.1); Sodium 130 mEq/L (136-145); Total Protein 5.5 g/dL (6.4-8.9); Troponin I < 0.03 ng/mL (< 0.04); eGFR For African Americans > 60 (> 60); eGFR For Non-African Americans 55 (> 60)
[2020-12-21 02:28] LABS: Bacteria,Urine Few per hpf (None-Few); Bilirubin,Urine Negative (Negative); Blood,Urine Negative (Negative); Clarity,Urine Turbid (Clear); Color,Urine Light-Yellow (Yellow); Glucose,Urine (UA) Normal (Normal); Hyaline Casts,Urine Few per lpf (None Seen); Ketones,Urine Negative (Negative); Leukocyte Esterase,Urine Negative (Negative); Mucus,Urine Few per lpf (None-Few); Nitrite,Urine Negative (Negative); Protein,Urine Negative (Neg-Trace); RBC,Urine 0-3 per hpf (0-3); Specific Gravity,Urine 1.016 (1.010-1.025); Squamous Epithelial Cell,Urine Few per hpf (None-Few); Urobilinogen,Urine Normal (Normal); WBC,Urine 0-3 per hpf (0-3)
[2020-12-21] MEDS ORDERED: Aspirin 81 MG TAB.CHEW PO ONE (05:22)
[2020-12-21] MEDS ORDERED: Naloxone 0.4 MG/ML INJ IVP PRN (06:12)
[2020-12-21] MEDS ORDERED: Ondansetron 4 MG/2 ML VIAL IVP PRN (06:12)
[2020-12-21] MEDS ORDERED: Dextrose Gel 15 GM/37.5 ML TUBE PO PRN ×2 (08:11)
[2020-12-21] MEDS ORDERED: D5% in Water 1,000 ML IVC PRN (08:11)
[2020-12-21] MEDS ORDERED: *HR* Dextrose 50 % in Water (Vial) 50 ML VIAL IVP PRN (08:11)
[2020-12-21] MEDS: Azithromycin 500 MG in 0.9 % Sodium Chloride 250 ML IVPB SCH (09:58)
[2020-12-21] MEDS: Ipratropium/Albuterol Neb 3 ML IH SCH ×3 (11:04→23:00)
[2020-12-21] MEDS ORDERED: *HR* HYDROmorphone 2 MG TABLET PO ONE (11:36)
[2020-12-21] MEDS: Insulin LISPRO 300 UNITS/3 ML VIAL SUBQ SCH ×3 (12:18→21:24)
[2020-12-21] MEDS: MethylPREDNISolone 40 MG/ML VIAL IVP SCH ×2 (16:16→22:51)
[2020-12-21] MEDS: Acetaminophen 325 MG TABLET PO PRN (21:12)
[2020-12-21] MEDS: Gabapentin 400 MG CAPSULE PO SCH (23:29)
[2020-12-22 01:02] LABS: Basophils % 0.2 %; Hematocrit 29.3 % (35.3-44.9); Hemoglobin 9.6 g/dL (11.5-15.4); Immature Granulocytes % 0.6 % (0-4); Lymphocytes # 0.3 K/mcL (0.6-4.6); Lymphocytes % 5.9 %; Mean Corpuscular HGB Conc 32.8 g/dL (31.6-35.5); Mean Corpuscular Hemoglobin 29.9 pg (28.0-33.3); Mean Corpuscular Volume 91.3 fL (83.0-100.0); Mean Platelet Volume 9.4 fL (9.4-12.4); Monocytes # 0.1 K/mcL (0.0-1.3); Monocytes % 1.4 %; Neutrophils # 4.6 K/mcL (1.6-8.9); Platelet Count 305 K/mcL (140-400); Red Blood Count 3.21 M/mcL (3.82-4.97); Red Cell Distribution Width 13.7 % (11.5-14.5); Segmented Neutrophils % 91.9 %
[2020-12-22 01:09] LABS: Prothrombin Time 11.8 Seconds (9.4-12.1)
[2020-12-22 01:18] LABS: BUN/Creatinine Ratio 20 (6-26); Blood Urea Nitrogen 19 mg/dL (8-23); Calcium 8.3 mg/dL (8.6-10.3); Carbon Dioxide 21 mEq/L (23-29); Chloride 100 mEq/L (98-107); Glucose 243 mg/dL (70-105); Magnesium 1.9 mg/dL (1.6-2.6); Osmolality,Calculated 282 (280-300); Potassium 4.9 mEq/L (3.5-5.1); Sodium 131 mEq/L (136-145); eGFR For African Americans > 60 (> 60); eGFR For Non-African Americans 56 (> 60)
[2020-12-22] MEDS: Ipratropium/Albuterol Neb 3 ML IH SCH ×4 (03:50→21:56)
[2020-12-22] MEDS ORDERED: Regadenoson 0.4 MG/5 ML SYRINGE IVP ONE (06:17)
[2020-12-22] MEDS: Insulin LISPRO 300 UNITS/3 ML VIAL SUBQ SCH ×6 (09:18→22:07)
[2020-12-22] MEDS: MethylPREDNISolone 40 MG/ML VIAL IVP SCH ×2 (10:37→21:07)
[2020-12-22] MEDS: Azithromycin 500 MG in 0.9 % Sodium Chloride 250 ML IVPB SCH (10:37)
[2020-12-22] MEDS: Acetaminophen 325 MG TABLET PO PRN (10:38)
[2020-12-22] MEDS ORDERED: Insulin DETEMIR 100 UNIT/ML X5UNITS SUBQ ONE (14:03)
[2020-12-22] MEDS: Gabapentin 400 MG CAPSULE PO SCH (21:07)
[2020-12-22] MEDS: Budesonide/Formoterol 160/4.5 1 PUFF INH IH SCH (21:56)
[2020-12-23] MEDS ORDERED: Insulin LISPRO 300 UNITS/3 ML VIAL SUBQ ONE (04:27)
[2020-12-23] MEDS: Ipratropium/Albuterol Neb 3 ML IH SCH ×4 (04:30→21:37)
[2020-12-23] MEDS: Cholecalciferol (D-3) 1,000 UNIT (25MCG) TABLET PO SCH (07:43)
[2020-12-23] MEDS: lisinopriL 5 MG TABLET PO SCH (07:43)
[2020-12-23] MEDS: Furosemide 20 MG TABLET PO SCH (07:43)
[2020-12-23] MEDS: MethylPREDNISolone 40 MG/ML VIAL IVP SCH (07:43)
[2020-12-23] MEDS: Azithromycin 500 MG in 0.9 % Sodium Chloride 250 ML IVPB SCH (07:44)
[2020-12-23] MEDS: Insulin LISPRO 300 UNITS/3 ML VIAL SUBQ SCH ×4 (07:45→20:39)
[2020-12-23] MEDS: Budesonide/Formoterol 160/4.5 1 PUFF INH IH SCH ×2 (09:31→21:37)
[2020-12-23] MEDS: Nicotine 7 MG PATCH.TD24 TD SCH (14:52)
[2020-12-23] MEDS ORDERED: Insulin DETEMIR 100 UNIT/ML X5UNITS SUBQ ONE (16:39)
[2020-12-23] MEDS: Gabapentin 400 MG CAPSULE PO SCH (20:40)
[2020-12-24] MEDS: Ipratropium/Albuterol Neb 3 ML IH SCH ×3 (04:00→15:17)
[2020-12-24 05:29] LABS: Calcium 8.3 mg/dL (8.6-10.3); Potassium 4.9 mEq/L (3.5-5.1)
[2020-12-24 05:49] LABS: Estimated Average Glucose 169 mg/dl; Hemoglobin A1C 7.5 %
[2020-12-24] MEDS: Insulin LISPRO 300 UNITS/3 ML VIAL SUBQ SCH ×2 (08:12→12:06)
[2020-12-24] MEDS ORDERED: MethylPREDNISolone 40 MG/ML VIAL IVP SCH (09:00)
[2020-12-24] MEDS: Cholecalciferol (D-3) 1,000 UNIT (25MCG) TABLET PO SCH (09:40)
[2020-12-24] MEDS: Furosemide 20 MG TABLET PO SCH (09:40)
[2020-12-24] MEDS: Azithromycin 500 MG in 0.9 % Sodium Chloride 250 ML IVPB SCH (09:41)
[2020-12-24] MEDS: Nicotine 7 MG PATCH.TD24 TD SCH (09:43)
[2020-12-24] MEDS: Budesonide/Formoterol 160/4.5 1 PUFF INH IH SCH (10:04)
[2020-12-24 11:14] VITALS: BP 116/66
[2020-12-24] MEDS: lisinopriL 5 MG TABLET PO SCH (12:10)
== END 2020-12-24 15:53 | disposition home health service (06) | DRG 190 ==
LOC: EMEROOARM 23:51 → CDU 23:51 → SUATTDRO 12-21 05:54 → CDU 12-21 06:50 → 2ANU 12-21 13:08
PROVIDERS: ADMIT Student in an Organized Health Care Education/Training Program; ATTEND Internal Medicine

== ENCOUNTER 2021-02-02 13:49 | Inpatient (IN) ==
[2021-02-02 15:50] LABS: Adenovirus Not Detected (Not Detect); Bordetella Pertussis Not Detected (Not Detect); Chlamydophila pneumoniae Not Detected (Not Detect); Coronavirus 229E Not Detected (Not Detect); Coronavirus HKU1 Not Detected (Not Detect); Coronavirus NL63 Not Detected (Not Detect); Coronavirus OC43 Not Detected (Not Detect); Human Metapneumovirus Not Detected (Not Detect); Human Rhinovirus/Enterovirus Not Detected (Not Detect); Influenza A Subtype 2009 H1 Not Detected (Not Detect); Influenza B Not Detected (Not Detect); Mycoplasma pneumoniae Not Detected (Not Detect); Parainfluenza Virus 1 Not Detected (Not Detect); Parainfluenza Virus 2 Not Detected (Not Detect); Parainfluenza Virus 3 DETECTED (Not Detect); Parainfluenza Virus 4 Not Detected (Not Detect); Respiratory Syncytial Virus Not Detected (Not Detect); SARS-CoV-2 Not Detected (Not Detect)
[2021-02-02 17:05] LABS: VBG HCO3 27 mEq/L (21-27); VBG PCO2 58 mmHg (41-51); VBG PH 7.28 pH Units (7.32-7.42); VBG PO2 99 mmHg (25-50)
[2021-02-02 17:10] LABS: Basophils % 0.3 %; Eosinophils # 0.1 K/mcL (0.0-0.6); Eosinophils % 0.9 %; Hematocrit 27.7 % (35.3-44.9); Hemoglobin 8.9 g/dL (11.5-15.4); Immature Granulocytes % 0.6 % (0-4); Lymphocytes # 1.1 K/mcL (0.6-4.6); Lymphocytes % 15.6 %; Mean Corpuscular HGB Conc 32.1 g/dL (31.6-35.5); Mean Corpuscular Hemoglobin 29.1 pg (28.0-33.3); Mean Corpuscular Volume 90.5 fL (83.0-100.0); Mean Platelet Volume 9.8 fL (9.4-12.4); Monocytes # 0.8 K/mcL (0.0-1.3); Monocytes % 12.2 %; Neutrophils # 4.8 K/mcL (1.6-8.9); Platelet Count 221 K/mcL (140-400); Red Blood Count 3.06 M/mcL (3.82-4.97); Red Cell Distribution Width 14.1 % (11.5-14.5); Segmented Neutrophils % 70.4 %; White Blood Count 6.8 K/mcL (4.3-11.1)
[2021-02-02] MEDS ORDERED: methylPREDNISolone 125 MG/2 ML VIAL IVP ONE (17:17)
[2021-02-02] MEDS ORDERED: Ipratropium/Albuterol Neb 3 ML IH ONE (17:17)
[2021-02-02 17:30] LABS: Alanine Aminotransferase 12 Units/L (7-52); Albumin 3.4 g/dL (3.5-5.7); Albumin/Globulin Ratio 1.3 (1.1-2.2); Alkaline Phosphatase 59 Units/L (34-104); Aspartate Amino Transferase 14 Units/L (13-39); BUN/Creatinine Ratio 30 (6-26); Bilirubin,Direct 0.1 mg/dL (0.0-0.2); Bilirubin,Indirect 0.2 mg/dL (0.0-1.0); Bilirubin,Total 0.3 mg/dL (0.3-1.0); Blood Urea Nitrogen 27 mg/dL (8-23); Calcium 8.8 mg/dL (8.6-10.3); Carbon Dioxide 25 mEq/L (23-29); Chloride 94 mEq/L (98-107); Globulin 2.7 g/dL (2.4-3.5); Glucose 49 mg/dL (70-105); Osmolality,Calculated 262 (280-300); Potassium 4.9 mEq/L (3.5-5.1); Sodium 125 mEq/L (136-145); Total Protein 6.1 g/dL (6.4-8.9); Troponin I < 0.03 ng/mL (< 0.04); eGFR For African Americans > 60 (> 60); eGFR For Non-African Americans > 60 (> 60)
[2021-02-02] MEDS ORDERED: Piperacillin/Tazobactam 3.375 GM in Water for inj. (sterile) 20 ML IVP ONE (17:43)
[2021-02-02] MEDS ORDERED: Vancomycin 1,250 MG/262.5 ML IV.SOLN IVPB ONE (18:00)
[2021-02-02 18:14] LABS: Bilirubin,Urine Negative (Negative); Blood,Urine Trace (Negative); Clarity,Urine Clear (Clear); Color,Urine Light-Yellow (Yellow); Glucose,Urine (UA) Normal (Normal); Hyaline Casts,Urine Few per lpf (None Seen); Ketones,Urine Negative (Negative); Leukocyte Esterase,Urine Negative (Negative); Nitrite,Urine Negative (Negative); Protein,Urine Negative (Neg-Trace); RBC,Urine 0-3 per hpf (0-3); Specific Gravity,Urine 1.011 (1.010-1.025); Squamous Epithelial Cell,Urine Few per hpf (None-Few); Urobilinogen,Urine Normal (Normal); WBC,Urine 0-3 per hpf (0-3)
[2021-02-02] MEDS ORDERED: Acetaminophen 325 MG TABLET PO PRN (19:55)
[2021-02-02] MEDS ORDERED: Ondansetron 4 MG/2 ML VIAL IVP PRN (19:55)
[2021-02-02] MEDS ORDERED: Naloxone 0.4 MG/ML INJ IVP PRN (19:55)
[2021-02-02] MEDS ORDERED: Azithromycin 500 MG in 0.9 % Sodium Chloride 250 ML IVPB SCH (20:00)
[2021-02-02] MEDS ORDERED: 0.9 % Sodium Chloride 1,000 ML IVC SCH (20:30)
[2021-02-02] MEDS ORDERED: *HR* Dextrose 50 % in Water (Vial) 50 ML VIAL IVP PRN (20:30)
[2021-02-02] MEDS ORDERED: D5% in Water 1,000 ML IVC PRN (20:30)
[2021-02-02] MEDS ORDERED: Dextrose Gel 15 GM/37.5 ML TUBE PO PRN ×2 (20:30)
[2021-02-02] MEDS: Budesonide/Formoterol 160/4.5 1 PUFF INH IH SCH (21:54)
[2021-02-02] MEDS: Ipratropium/Albuterol Neb 3 ML IH SCH ×2 (21:54→21:56)
[2021-02-02 23:09] LABS: Hematocrit 30.5 % (35.3-44.9)
[2021-02-03] MEDS: Gabapentin 400 MG CAPSULE PO SCH ×2 (00:18→20:35)
[2021-02-03] MEDS: Multivit/Ca/Min/Fe/FA 1 TAB TABLET PO SCH ×3 (00:18→20:36)
[2021-02-03] MEDS: *HR* Heparin 5,000 UNIT/ML VIAL SQ SCH ×4 (00:19→20:35)
[2021-02-03] MEDS: Insulin LISPRO 300 UNITS/3 ML VIAL SUBQ SCH ×5 (00:42→20:37)
[2021-02-03] MEDS: MethylPREDNISolone 40 MG/ML VIAL IVP SCH ×3 (00:53→17:33)
[2021-02-03] MEDS ORDERED: Piperacillin/Tazobactam 3.375 GM in 0.9 % Sodium Chloride Mini Bag 100 ML IVPB SCH (02:00)
[2021-02-03] MEDS: Ipratropium/Albuterol Neb 3 ML IH SCH ×4 (03:47→22:09)
[2021-02-03] MEDS ORDERED: 0.9 % Sodium Chloride Mini Bag 100 ML ONE (05:14)
[2021-02-03 06:41] LABS: Hematocrit 30.6 % (35.3-44.9); Hemoglobin 10.2 g/dL (11.5-15.4); Mean Corpuscular HGB Conc 33.3 g/dL (31.6-35.5); Mean Corpuscular Hemoglobin 29.7 pg (28.0-33.3); Mean Corpuscular Volume 89.2 fL (83.0-100.0); Platelet Count 214 K/mcL (140-400); Red Blood Count 3.43 M/mcL (3.82-4.97); Red Cell Distribution Width 13.8 % (11.5-14.5); White Blood Count 3.9 K/mcL (4.3-11.1)
[2021-02-03 07:05] LABS: Thyroid Stimulating Hormone 0.87 mcIU/mL (0.340-5.600)
[2021-02-03 07:06] LABS: % Iron Saturation 9 % (15-50); BUN/Creatinine Ratio 29 (6-26); Blood Urea Nitrogen 25 mg/dL (8-23); Calcium 8.2 mg/dL (8.6-10.3); Carbon Dioxide 21 mEq/L (23-29); Chloride 92 mEq/L (98-107); Ferritin 308 ng/mL (10-120); Glucose 301 mg/dL (70-105); Iron 27 mcg/dL (50-170); Magnesium 1.8 mg/dL (1.6-2.6); Osmolality,Calculated 276 (280-300); Phosphorous 3.5 mg/dL (2.7-4.5); Potassium 5.6 mEq/L (3.5-5.1); Sodium 125 mEq/L (136-145); Transferrin 222 mg/dL (203-362); eGFR For African Americans > 60 (> 60); eGFR For Non-African Americans > 60 (> 60)
[2021-02-03 07:10] LABS: Folate 11.4 ng/mL (3.0-16.0)
[2021-02-03] MEDS: Furosemide 20 MG TABLET PO SCH (08:42)
[2021-02-03] MEDS: lisinopriL 5 MG TABLET PO SCH (08:42)
[2021-02-03] MEDS: Cholecalciferol (D-3) 1,000 UNIT (25MCG) TABLET PO SCH (08:42)
[2021-02-03] MEDS: Budesonide/Formoterol 160/4.5 1 PUFF INH IH SCH ×2 (11:15→22:09)
[2021-02-03] MEDS: 0.9 % Sodium Chloride 1,000 ML IVC SCH (12:31)
[2021-02-03 16:22] LABS: BUN/Creatinine Ratio 30 (6-26); Blood Urea Nitrogen 32 mg/dL (8-23); Calcium 7.7 mg/dL (8.6-10.3); Carbon Dioxide 22 mEq/L (23-29); Chloride 95 mEq/L (98-107); Glucose 448 mg/dL (70-105); Osmolality,Calculated 290 (280-300); Potassium 4.5 mEq/L (3.5-5.1); Sodium 127 mEq/L (136-145); eGFR For African Americans > 60 (> 60); eGFR For Non-African Americans 50 (> 60)
[2021-02-03] MEDS ORDERED: Insulin LISPRO 300 UNITS/3 ML VIAL SUBQ ONE (17:30)
[2021-02-03] MEDS: Doxycycline 100 MG CAPSULE PO SCH (17:33)
[2021-02-03] MEDS: Insulin DETEMIR 100 UNIT/ML X5UNITS SUBQ SCH (20:36)
[2021-02-04 02:09] LABS: Hematocrit 23.6 % (35.3-44.9); Immature Granulocytes % 0.8 % (0-4); Lymphocytes # 0.4 K/mcL (0.6-4.6); Lymphocytes % 11.7 %; Mean Corpuscular HGB Conc 33.9 g/dL (31.6-35.5); Mean Corpuscular Hemoglobin 30.2 pg (28.0-33.3); Mean Corpuscular Volume 89.1 fL (83.0-100.0); Mean Platelet Volume 9.6 fL (9.4-12.4); Monocytes # 0.5 K/mcL (0.0-1.3); Monocytes % 14.2 %; Neutrophils # 2.6 K/mcL (1.6-8.9); Platelet Count 257 K/mcL (140-400); Red Blood Count 2.65 M/mcL (3.82-4.97); Segmented Neutrophils % 73.3 %; White Blood Count 3.6 K/mcL (4.3-11.1)
[2021-02-04] MEDS: 0.9 % Sodium Chloride 1,000 ML IVC SCH ×2 (02:19→17:02)
[2021-02-04 02:26] LABS: Calcium 7.6 mg/dL (8.6-10.3); Potassium 4.7 mEq/L (3.5-5.1)
[2021-02-04] MEDS: Ipratropium/Albuterol Neb 3 ML IH SCH ×4 (03:12→22:20)
[2021-02-04] MEDS: Doxycycline 100 MG CAPSULE PO SCH ×2 (06:34→17:03)
[2021-02-04] MEDS: MethylPREDNISolone 40 MG/ML VIAL IVP SCH (06:34)
[2021-02-04] MEDS: *HR* Heparin 5,000 UNIT/ML VIAL SQ SCH ×3 (06:34→20:46)
[2021-02-04] MEDS: Multivit/Ca/Min/Fe/FA 1 TAB TABLET PO SCH ×2 (08:21→20:46)
[2021-02-04] MEDS: lisinopriL 5 MG TABLET PO SCH (08:22)
[2021-02-04] MEDS: Cholecalciferol (D-3) 1,000 UNIT (25MCG) TABLET PO SCH (08:22)
[2021-02-04] MEDS: Insulin LISPRO 300 UNITS/3 ML VIAL SUBQ SCH ×4 (08:22→20:45)
[2021-02-04] MEDS: Furosemide 20 MG TABLET PO SCH (08:22)
[2021-02-04 08:28] LABS: Hematocrit 24.9 % (35.3-44.9); Hemoglobin 8.1 g/dL (11.5-15.4)
[2021-02-04] MEDS: Budesonide/Formoterol 160/4.5 1 PUFF INH IH SCH ×2 (11:02→22:20)
[2021-02-04] MEDS: Insulin DETEMIR 100 UNIT/ML X5UNITS SUBQ SCH (20:45)
[2021-02-04] MEDS: Gabapentin 400 MG CAPSULE PO SCH (20:46)
[2021-02-05 02:06] LABS: Basophils % 0.2 %; Hematocrit 25.9 % (35.3-44.9); Hemoglobin 8.3 g/dL (11.5-15.4); Immature Granulocytes % 0.8 % (0-4); Lymphocytes # 1.1 K/mcL (0.6-4.6); Lymphocytes % 17.6 %; Mean Corpuscular Hemoglobin 29.3 pg (28.0-33.3); Mean Corpuscular Volume 91.5 fL (83.0-100.0); Mean Platelet Volume 9.2 fL (9.4-12.4); Monocytes # 1.1 K/mcL (0.0-1.3); Monocytes % 16.5 %; Neutrophils # 4.2 K/mcL (1.6-8.9); Platelet Count 295 K/mcL (140-400); Red Blood Count 2.83 M/mcL (3.82-4.97); Red Cell Distribution Width 14.2 % (11.5-14.5); Segmented Neutrophils % 64.9 %
[2021-02-05 02:07] LABS: White Blood Count 6.4 K/mcL (4.3-11.1)
[2021-02-05 02:23] LABS: Calcium 7.9 mg/dL (8.6-10.3); Potassium 4.4 mEq/L (3.5-5.1)
[2021-02-05] MEDS: Ipratropium/Albuterol Neb 3 ML IH SCH ×4 (04:13→21:35)
[2021-02-05] MEDS: Doxycycline 100 MG CAPSULE PO SCH ×2 (05:04→16:37)
[2021-02-05] MEDS: 0.9 % Sodium Chloride 1,000 ML IVC SCH (05:04)
[2021-02-05] MEDS: *HR* Heparin 5,000 UNIT/ML VIAL SQ SCH ×3 (05:05→20:18)
[2021-02-05] MEDS: Insulin LISPRO 300 UNITS/3 ML VIAL SUBQ SCH ×3 (07:59→16:26)
[2021-02-05] MEDS: predniSONE 20 MG TABLET PO SCH (10:36)
[2021-02-05] MEDS: Multivit/Ca/Min/Fe/FA 1 TAB TABLET PO SCH ×2 (10:36→20:18)
[2021-02-05] MEDS: lisinopriL 5 MG TABLET PO SCH (10:36)
[2021-02-05] MEDS: Cholecalciferol (D-3) 1,000 UNIT (25MCG) TABLET PO SCH (10:36)
[2021-02-05] MEDS: Furosemide 20 MG TABLET PO SCH (10:36)
[2021-02-05] MEDS: Budesonide/Formoterol 160/4.5 1 PUFF INH IH SCH ×2 (11:15→21:35)
[2021-02-05] MEDS: Gabapentin 400 MG CAPSULE PO SCH (20:18)
[2021-02-05] MEDS: Insulin DETEMIR 100 UNIT/ML X5UNITS SUBQ SCH (20:19)
[2021-02-05] MEDS ORDERED: Insulin LISPRO 300 UNITS/3 ML VIAL SUBQ ONE (20:37)
[2021-02-06] MEDS: Ipratropium/Albuterol Neb 3 ML IH SCH ×4 (04:15→22:39)
[2021-02-06 06:14] LABS: Basophils % 0.2 %; Hematocrit 24.8 % (35.3-44.9); Hemoglobin 7.7 g/dL (11.5-15.4); Immature Granulocytes % 0.3 % (0-4); Lymphocytes # 1.2 K/mcL (0.6-4.6); Lymphocytes % 19.1 %; Mean Corpuscular Hemoglobin 28.5 pg (28.0-33.3); Mean Corpuscular Volume 91.9 fL (83.0-100.0); Mean Platelet Volume 9.2 fL (9.4-12.4); Monocytes % 15.9 %; Platelet Count 311 K/mcL (140-400); Red Cell Distribution Width 14.3 % (11.5-14.5); Segmented Neutrophils % 64.5 %; White Blood Count 6.2 K/mcL (4.3-11.1)
[2021-02-06] MEDS: Doxycycline 100 MG CAPSULE PO SCH ×2 (06:36→17:03)
[2021-02-06] MEDS: *HR* Heparin 5,000 UNIT/ML VIAL SQ SCH ×3 (06:36→20:14)
[2021-02-06 06:38] LABS: BUN/Creatinine Ratio 40 (6-26); Blood Urea Nitrogen 38 mg/dL (8-23); Calcium 8.3 mg/dL (8.6-10.3); Carbon Dioxide 28 mEq/L (23-29); Chloride 106 mEq/L (98-107); Glucose 101 mg/dL (70-105); Magnesium 2.1 mg/dL (1.6-2.6); Osmolality,Calculated 295 (280-300); Potassium 4.6 mEq/L (3.5-5.1); Sodium 138 mEq/L (136-145); eGFR For African Americans > 60 (> 60); eGFR For Non-African Americans 57 (> 60)
[2021-02-06] MEDS: predniSONE 20 MG TABLET PO SCH (09:02)
[2021-02-06] MEDS: Cholecalciferol (D-3) 1,000 UNIT (25MCG) TABLET PO SCH (09:02)
[2021-02-06] MEDS: Furosemide 20 MG TABLET PO SCH ×2 (09:02→09:23)
[2021-02-06] MEDS: Insulin LISPRO 300 UNITS/3 ML VIAL SUBQ SCH ×3 (09:02→17:03)
[2021-02-06] MEDS: lisinopriL 5 MG TABLET PO SCH ×2 (09:02→09:23)
[2021-02-06] MEDS: Multivit/Ca/Min/Fe/FA 1 TAB TABLET PO SCH ×2 (09:02→20:07)
[2021-02-06] MEDS: Budesonide/Formoterol 160/4.5 1 PUFF INH IH SCH ×2 (10:51→22:38)
[2021-02-06] MEDS: Gabapentin 400 MG CAPSULE PO SCH (20:07)
[2021-02-06] MEDS ORDERED: Insulin DETEMIR 100 UNIT/ML X5UNITS SUBQ SCH (21:00)
[2021-02-07] MEDS: Ipratropium/Albuterol Neb 3 ML IH SCH ×2 (04:12→10:45)
[2021-02-07] MEDS: *HR* Heparin 5,000 UNIT/ML VIAL SQ SCH (05:35)
[2021-02-07] MEDS: Doxycycline 100 MG CAPSULE PO SCH (05:35)
[2021-02-07 06:24] LABS: Basophils % 0.2 %; Hemoglobin 7.5 g/dL (11.5-15.4); Immature Granulocytes % 0.9 % (0-4); Lymphocytes # 1.3 K/mcL (0.6-4.6); Lymphocytes % 24.4 %; Mean Corpuscular HGB Conc 31.3 g/dL (31.6-35.5); Mean Corpuscular Hemoglobin 28.8 pg (28.0-33.3); Mean Corpuscular Volume 92.3 fL (83.0-100.0); Mean Platelet Volume 8.9 fL (9.4-12.4); Monocytes # 1.1 K/mcL (0.0-1.3); Monocytes % 20.3 %; Neutrophils # 2.9 K/mcL (1.6-8.9); Platelet Count 305 K/mcL (140-400); Red Cell Distribution Width 14.2 % (11.5-14.5); Segmented Neutrophils % 54.2 %; White Blood Count 5.4 K/mcL (4.3-11.1)
[2021-02-07 06:43] LABS: BUN/Creatinine Ratio 36 (6-26); Blood Urea Nitrogen 32 mg/dL (8-23); Calcium 8.7 mg/dL (8.6-10.3); Carbon Dioxide 29 mEq/L (23-29); Chloride 107 mEq/L (98-107); Glucose 140 mg/dL (70-105); Osmolality,Calculated 295 (280-300); Potassium 4.6 mEq/L (3.5-5.1); Sodium 138 mEq/L (136-145); eGFR For African Americans > 60 (> 60); eGFR For Non-African Americans > 60 (> 60)
[2021-02-07] MEDS: Insulin LISPRO 300 UNITS/3 ML VIAL SUBQ SCH ×2 (07:58→11:18)
[2021-02-07] MEDS: Multivit/Ca/Min/Fe/FA 1 TAB TABLET PO SCH (08:54)
[2021-02-07] MEDS: lisinopriL 5 MG TABLET PO SCH (08:54)
[2021-02-07] MEDS: Cholecalciferol (D-3) 1,000 UNIT (25MCG) TABLET PO SCH (08:54)
[2021-02-07 09:16] LABS: Hematocrit 25.5 % (35.3-44.9)
[2021-02-07] MEDS: Budesonide/Formoterol 160/4.5 1 PUFF INH IH SCH (10:46)
[2021-02-07 11:11] VITALS: BP 134/73; PULSE 99; TEMP 98.7; O2SAT 98
[2021-02-07] MEDS: Furosemide 20 MG TABLET PO SCH (11:32)
== END 2021-02-07 12:42 | disposition home health service (06) | DRG 193 ==
LOC: 2ANU 13:49 → EMEROOARM 13:49 → SUATTDRO 19:17 → 2ANU 19:45 → SUATTDRO 02-04 10:33
PROVIDERS: ADMIT Internal Medicine; ATTEND Family Medicine

== ENCOUNTER 2021-03-13 07:12 | Inpatient (IN) ==
[2021-03-13 08:28] LABS: Basophils # 0.1 K/mcL (0.0-0.2); Basophils % 0.6 %; Eosinophils # 0.2 K/mcL (0.0-0.6); Eosinophils % 2.7 %; Hematocrit 32.4 % (35.3-44.9); Hemoglobin 10.4 g/dL (11.5-15.4); Immature Granulocytes % 1.4 % (0-4); Lymphocytes # 1.7 K/mcL (0.6-4.6); Lymphocytes % 19.3 %; Mean Corpuscular HGB Conc 32.1 g/dL (31.6-35.5); Mean Corpuscular Volume 93.4 fL (83.0-100.0); Mean Platelet Volume 9.5 fL (9.4-12.4); Monocytes # 0.7 K/mcL (0.0-1.3); Monocytes % 8.2 %; Platelet Count 268 K/mcL (140-400); Red Blood Count 3.47 M/mcL (3.82-4.97); Red Cell Distribution Width 14.6 % (11.5-14.5); Segmented Neutrophils % 67.8 %; White Blood Count 8.8 K/mcL (4.3-11.1)
[2021-03-13 08:52] LABS: Prothrombin Time 11.1 Seconds (9.4-12.1)
[2021-03-13 09:09] LABS: Alanine Aminotransferase 10 Units/L (7-52); Albumin 3.5 g/dL (3.5-5.7); Albumin/Globulin Ratio 1.3 (1.1-2.2); Alkaline Phosphatase 80 Units/L (34-104); Aspartate Amino Transferase 12 Units/L (13-39); BUN/Creatinine Ratio 22 (6-26); Bilirubin,Total 0.4 mg/dL (0.3-1.0); Blood Urea Nitrogen 28 mg/dL (8-23); Calcium 8.9 mg/dL (8.6-10.3); Carbon Dioxide 28 mEq/L (23-29); Chloride 99 mEq/L (98-107); Globulin 2.6 g/dL (2.4-3.5); Glucose 130 mg/dL (70-105); Osmolality,Calculated 287 (280-300); Potassium 4.3 mEq/L (3.5-5.1); Sodium 135 mEq/L (136-145); Total Protein 6.1 g/dL (6.4-8.9); eGFR For African Americans 49 (> 60); eGFR For Non-African Americans 40 (> 60)
[2021-03-13 09:10] LABS: Adenovirus Not Detected (Not Detect); Bordetella Pertussis Not Detected (Not Detect); Chlamydophila pneumoniae Not Detected (Not Detect); Coronavirus 229E Not Detected (Not Detect); Coronavirus HKU1 Not Detected (Not Detect); Coronavirus NL63 Not Detected (Not Detect); Coronavirus OC43 Not Detected (Not Detect); Human Metapneumovirus Not Detected (Not Detect); Human Rhinovirus/Enterovirus Not Detected (Not Detect); Influenza A Subtype 2009 H1 Not Detected (Not Detect); Influenza B Not Detected (Not Detect); Mycoplasma pneumoniae Not Detected (Not Detect); Parainfluenza Virus 1 Not Detected (Not Detect); Parainfluenza Virus 2 Not Detected (Not Detect); Parainfluenza Virus 3 Not Detected (Not Detect); Parainfluenza Virus 4 Not Detected (Not Detect); Respiratory Syncytial Virus Not Detected (Not Detect); SARS-CoV-2 Not Detected (Not Detect); Troponin I < 0.03 ng/mL (< 0.04)
[2021-03-13 09:23] LABS: Thyroid Stimulating Hormone 2.826 mcIU/mL (0.340-5.600)
[2021-03-13] MEDS ORDERED: Melatonin 3 MG TABLET PO PRN (12:51)
[2021-03-13] MEDS ORDERED: Naloxone 0.4 MG/ML INJ IVP PRN (12:51)
[2021-03-13] MEDS ORDERED: Acetaminophen 325 MG TABLET PO PRN (12:51)
[2021-03-13] MEDS ORDERED: Perflutren Lipid Microsphere 1.3 ML in 0.9 % Sodium Chloride 8.7 ML IVP PRN (12:58)
[2021-03-13] MEDS ORDERED: Ipratropium/Albuterol Neb 3 ML IH PRN (14:35)
[2021-03-13] MEDS ORDERED: Dextrose Gel 15 GM/37.5 ML TUBE PO PRN ×2 (15:40)
[2021-03-13] MEDS ORDERED: D5% in Water 1,000 ML IVC PRN (15:40)
[2021-03-13] MEDS ORDERED: *HR* Dextrose 50 % in Water (Vial) 50 ML VIAL IVP PRN (15:40)
[2021-03-13] MEDS: Insulin LISPRO 300 UNITS/3 ML VIAL SUBQ SCH ×2 (17:49→21:29)
[2021-03-13] MEDS: *HR* Heparin 5,000 UNIT/ML VIAL SQ SCH (17:49)
[2021-03-14] MEDS: *HR* Heparin 5,000 UNIT/ML VIAL SQ SCH ×2 (05:50→16:56)
[2021-03-14] MEDS ORDERED: LEFLUNOMIDE 20 MG PO SCH (09:00)
[2021-03-14] MEDS: Cyanocobalamin (B-12) 1,000 MCG TABLET PO SCH (09:47)
[2021-03-14] MEDS: Cholecalciferol (D-3) 1,000 UNIT (25MCG) TABLET PO SCH (09:47)
[2021-03-14] MEDS: Insulin LISPRO 300 UNITS/3 ML VIAL SUBQ SCH ×4 (09:47→21:22)
[2021-03-14] MEDS: Budesonide/Formoterol 160/4.5 1 PUFF INH IH SCH ×2 (11:46→19:47)
[2021-03-14] MEDS ORDERED: 0.9 % Sodium Chloride 1,000 ML IVC SCH (13:45)
[2021-03-14 13:48] LABS: Basophils # 0.1 K/mcL (0.0-0.2); Basophils % 0.7 %; Eosinophils # 0.2 K/mcL (0.0-0.6); Eosinophils % 2.4 %; Hematocrit 34.4 % (35.3-44.9); Hemoglobin 10.6 g/dL (11.5-15.4); Immature Granulocytes % 1.8 % (0-4); Lymphocytes # 1.2 K/mcL (0.6-4.6); Lymphocytes % 16.1 %; Mean Corpuscular HGB Conc 30.8 g/dL (31.6-35.5); Mean Corpuscular Hemoglobin 29.6 pg (28.0-33.3); Mean Corpuscular Volume 96.1 fL (83.0-100.0); Mean Platelet Volume 9.6 fL (9.4-12.4); Monocytes # 0.6 K/mcL (0.0-1.3); Neutrophils # 5.3 K/mcL (1.6-8.9); Platelet Count 295 K/mcL (140-400); Red Blood Count 3.58 M/mcL (3.82-4.97); Red Cell Distribution Width 14.7 % (11.5-14.5); White Blood Count 7.4 K/mcL (4.3-11.1)
[2021-03-14 14:26] LABS: Calcium 9.4 mg/dL (8.6-10.3); Potassium 4.4 mEq/L (3.5-5.1)
[2021-03-14 15:16] LABS: Magnesium 2.2 mg/dL (1.6-2.6); Phosphorous 2.6 mg/dL (2.7-4.5)
[2021-03-14] MEDS ORDERED: Gabapentin 400 MG CAPSULE PO SCH (21:00)
[2021-03-15] MEDS: *HR* Heparin 5,000 UNIT/ML VIAL SQ SCH (05:55)
[2021-03-15 08:13] LABS: BUN/Creatinine Ratio 23 (6-26); Blood Urea Nitrogen 22 mg/dL (8-23); Calcium 8.6 mg/dL (8.6-10.3); Carbon Dioxide 25 mEq/L (23-29); Chloride 102 mEq/L (98-107); Glucose 133 mg/dL (70-105); Osmolality,Calculated 285 (280-300); Potassium 4.1 mEq/L (3.5-5.1); Sodium 135 mEq/L (136-145); eGFR For African Americans > 60 (> 60); eGFR For Non-African Americans 55 (> 60)
[2021-03-15 08:21] LABS: Magnesium 2.1 mg/dL (1.6-2.6); Phosphorous 3.4 mg/dL (2.7-4.5)
[2021-03-15 09:33] VITALS: TEMP 97.6
[2021-03-15] MEDS: Cholecalciferol (D-3) 1,000 UNIT (25MCG) TABLET PO SCH (09:41)
[2021-03-15] MEDS: Cyanocobalamin (B-12) 1,000 MCG TABLET PO SCH (09:41)
[2021-03-15] MEDS: Budesonide/Formoterol 160/4.5 1 PUFF INH IH SCH (11:03)
[2021-03-15 11:05] VITALS: O2SAT 96
[2021-03-15 14:54] VITALS: BP 150/81; PULSE 78
== END 2021-03-15 14:42 | disposition home health service (06) | DRG 312 ==
LOC: 3ANU 07:12 → EMEROOARM 07:12 → SUATTDRO 12:51 → 3ANU 14:30
PROVIDERS: ADMIT Internal Medicine; ATTEND Internal Medicine

== ENCOUNTER 2021-08-29 19:37 | Inpatient (IN) ==
[2021-08-29 21:41] LABS: Basophils % 0.2 %; Eosinophils % 0.2 %; Hematocrit 29.7 % (35.3-44.9); Hemoglobin 9.8 g/dL (11.5-15.4); Immature Granulocytes % 0.7 % (0-4); Lymphocytes # 0.6 K/mcL (0.6-4.6); Mean Corpuscular Hemoglobin 30.1 pg (28.0-33.3); Mean Corpuscular Volume 91.1 fL (83.0-100.0); Mean Platelet Volume 9.7 fL (9.4-12.4); Monocytes # 0.5 K/mcL (0.0-1.3); Monocytes % 11.7 %; Neutrophils # 3.1 K/mcL (1.6-8.9); Platelet Count 186 K/mcL (140-400); Red Blood Count 3.26 M/mcL (3.82-4.97); Red Cell Distribution Width 13.9 % (11.5-14.5); Segmented Neutrophils % 72.2 %; White Blood Count 4.3 K/mcL (4.3-11.1)
[2021-08-29 22:00] LABS: Alanine Aminotransferase 15 Units/L (7-52); Albumin 3.7 g/dL (3.5-5.7); Albumin/Globulin Ratio 1.5 (1.1-2.2); Alkaline Phosphatase 58 Units/L (34-104); Aspartate Amino Transferase 22 Units/L (13-39); BUN/Creatinine Ratio 23 (6-26); Bilirubin,Total 0.3 mg/dL (0.3-1.0); Blood Urea Nitrogen 23 mg/dL (8-23); Calcium 7.9 mg/dL (8.6-10.3); Carbon Dioxide 27 mEq/L (23-29); Chloride 92 mEq/L (98-107); Globulin 2.5 g/dL (2.4-3.5); Glucose 86 mg/dL (70-105); Osmolality,Calculated 265 (280-300); Potassium 3.8 mEq/L (3.5-5.1); Sodium 126 mEq/L (136-145); Total Protein 6.2 g/dL (6.4-8.9); eGFR For African Americans > 60 (> 60); eGFR For Non-African Americans 53 (> 60)
[2021-08-29 22:19] LABS: Bilirubin,Urine Negative (Negative); Blood,Urine Negative (Negative); Clarity,Urine Clear (Clear); Color,Urine Light-Yellow (Yellow); Glucose,Urine (UA) Normal (Normal); Ketones,Urine Negative (Negative); Leukocyte Esterase,Urine Negative (Negative); Nitrite,Urine Negative (Negative); Protein,Urine Trace mg/dL (Neg-Trace); Specific Gravity,Urine 1.014 (1.010-1.025); Urobilinogen,Urine Normal (Normal)
[2021-08-29] MEDS ORDERED: methylPREDNISolone 125 MG/2 ML VIAL IVP ONE (22:38)
[2021-08-29] MEDS ORDERED: Ipratropium/Albuterol Neb 3 ML IH ONE (22:38)
[2021-08-29] MEDS ORDERED: 0.9 % Sodium Chloride 500 ML IVC ONE (22:39)
[2021-08-29] MEDS ORDERED: Albuterol 2.5 MG/3 ML NEBULIZER IH ONE (23:45)
[2021-08-30 00:52] LABS: VBG HCO3 25 mEq/L (21-27); VBG PCO2 49 mmHg (41-51); VBG PH 7.32 pH Units (7.32-7.42); VBG PO2 44 mmHg (25-50)
[2021-08-30] MEDS ORDERED: Naloxone 0.4 MG/ML INJ IVP PRN (01:36)
[2021-08-30] MEDS ORDERED: Ondansetron 4 MG/2 ML VIAL IVP PRN (01:36)
[2021-08-30] MEDS ORDERED: Acetaminophen 325 MG TABLET PO PRN (01:36)
[2021-08-30 01:50] LABS: Adenovirus Not Detected (Not Detect); Bordetella Pertussis Not Detected (Not Detect); Chlamydophila pneumoniae Not Detected (Not Detect); Coronavirus 229E Not Detected (Not Detect); Coronavirus HKU1 Not Detected (Not Detect); Coronavirus NL63 Not Detected (Not Detect); Coronavirus OC43 Not Detected (Not Detect); Human Metapneumovirus Not Detected (Not Detect); Human Rhinovirus/Enterovirus Not Detected (Not Detect); Influenza A Subtype 2009 H1 Not Detected (Not Detect); Influenza B Not Detected (Not Detect); Mycoplasma pneumoniae Not Detected (Not Detect); Parainfluenza Virus 1 Not Detected (Not Detect); Parainfluenza Virus 2 Not Detected (Not Detect); Parainfluenza Virus 3 Not Detected (Not Detect); Parainfluenza Virus 4 Not Detected (Not Detect); Respiratory Syncytial Virus Not Detected (Not Detect)
[2021-08-30] MEDS ORDERED: D5% in Water 1,000 ML IVC PRN (01:54)
[2021-08-30] MEDS ORDERED: Dextrose Gel 15 GM/37.5 ML TUBE PO PRN ×2 (01:54)
[2021-08-30] MEDS ORDERED: *HR* Dextrose 50 % in Water (Syg) 50 ML SYRINGE IVP PRN (01:54)
[2021-08-30 01:57] LABS: SARS-CoV-2 DETECTED (Not Detect)
[2021-08-30 06:32] LABS: Basophils % 0.3 %; Hematocrit 29.2 % (35.3-44.9); Hemoglobin 9.4 g/dL (11.5-15.4); Immature Granulocytes % 0.9 % (0-4); Lymphocytes # 0.2 K/mcL (0.6-4.6); Lymphocytes % 5.8 %; Mean Corpuscular HGB Conc 32.2 g/dL (31.6-35.5); Mean Corpuscular Hemoglobin 29.9 pg (28.0-33.3); Mean Platelet Volume 10.2 fL (9.4-12.4); Monocytes # 0.1 K/mcL (0.0-1.3); Monocytes % 3.5 %; Neutrophils # 3.1 K/mcL (1.6-8.9); Platelet Count 177 K/mcL (140-400); Red Blood Count 3.14 M/mcL (3.82-4.97); Segmented Neutrophils % 89.5 %; White Blood Count 3.5 K/mcL (4.3-11.1)
[2021-08-30 06:41] LABS: Fibrinogen 454 mg/dL (169-393); Prothrombin Time 11.2 Seconds (9.4-12.1)
[2021-08-30 06:54] LABS: BUN/Creatinine Ratio 27 (6-26); Blood Urea Nitrogen 25 mg/dL (8-23); Calcium 7.5 mg/dL (8.6-10.3); Carbon Dioxide 22 mEq/L (23-29); Chloride 93 mEq/L (98-107); Cholesterol 138 mg/dL (< 200); Glucose 217 mg/dL (70-105); HDL Cholesterol 70 mg/dL (40-59); LDL Cholesterol,Calculated 54 mg/dL (< 100); Magnesium 1.9 mg/dL (1.6-2.6); Osmolality,Calculated 271 (280-300); Potassium 4.4 mEq/L (3.5-5.1); Sodium 125 mEq/L (136-145); Triglycerides 69 mg/dL (< 150); eGFR For African Americans > 60 (> 60); eGFR For Non-African Americans 57 (> 60)
[2021-08-30 06:58] LABS: D-Dimer 863 ng/mLFEU (0-500)
[2021-08-30] MEDS ORDERED: Isovue-370 500 ML BOTTLE IVP ONE (07:00)
[2021-08-30 07:06] LABS: Thyroid Stimulating Hormone 1.427 mcIU/mL (0.340-5.600)
[2021-08-30 07:41] LABS: Estimated Average Glucose 171 mg/dl; Hemoglobin A1C 7.6 %
[2021-08-30] MEDS ORDERED: Remdesivir 200 MG in 0.9 % Sodium Chloride 100 ML IVPB ONE (09:00)
[2021-08-30 09:28] LABS: C-Reactive Protein 74 mg/L (Less than 10); Lactate Dehydrogenase 206 Units/L (140-271)
[2021-08-30] MEDS: cefTRIAXone 1,000 MG in 0.9 % Sodium Chloride 10 ML IVP SCH (09:45)
[2021-08-30 09:46] LABS: Ferritin 225 ng/mL (10-120)
[2021-08-30] MEDS: Furosemide 20 MG/2 ML VIAL IVP SCH ×2 (09:50→17:48)
[2021-08-30] MEDS: Azithromycin 500 MG in 0.9 % Sodium Chloride 250 ML IVPB SCH (09:50)
[2021-08-30] MEDS: Insulin DETEMIR 100 UNIT/ML X5UNITS SUBQ SCH ×2 (09:57→20:34)
[2021-08-30] MEDS: Insulin LISPRO 300 UNITS/3 ML VIAL SUBQ SCH ×3 (09:57→15:57)
[2021-08-30] MEDS: Ipratropium 1 PUFF INHALER IH SCH ×4 (11:08→23:54)
[2021-08-31 01:43] LABS: Basophils % 0.4 %; Hematocrit 29.9 % (35.3-44.9); Hemoglobin 10.1 g/dL (11.5-15.4); Immature Granulocytes % 0.5 % (0-4); Lymphocytes # 0.5 K/mcL (0.6-4.6); Lymphocytes % 8.8 %; Mean Corpuscular HGB Conc 33.8 g/dL (31.6-35.5); Mean Corpuscular Hemoglobin 30.6 pg (28.0-33.3); Mean Corpuscular Volume 90.6 fL (83.0-100.0); Mean Platelet Volume 10.8 fL (9.4-12.4); Monocytes # 0.8 K/mcL (0.0-1.3); Monocytes % 14.1 %; Neutrophils # 4.2 K/mcL (1.6-8.9); Platelet Count 190 K/mcL (140-400); Red Cell Distribution Width 14.1 % (11.5-14.5); Segmented Neutrophils % 76.2 %; White Blood Count 5.5 K/mcL (4.3-11.1)
[2021-08-31 02:08] LABS: Albumin 3.3 g/dL (3.5-5.7); Albumin/Globulin Ratio 1.3 (1.1-2.2); Bilirubin,Direct 0.1 mg/dL (0.0-0.2); Bilirubin,Indirect 0.2 mg/dL (0.0-1.0); Bilirubin,Total 0.3 mg/dL (0.3-1.0); Globulin 2.5 g/dL (2.4-3.5); Total Protein 5.8 g/dL (6.4-8.9)
[2021-08-31] MEDS: Ipratropium 1 PUFF INHALER IH SCH ×5 (04:00→20:04)
[2021-08-31] MEDS ORDERED: Ipratropium/Albuterol Neb 3 ML IH PRN (04:08)
[2021-08-31] MEDS: Insulin LISPRO 300 UNITS/3 ML VIAL SUBQ SCH ×3 (07:40→17:08)
[2021-08-31] MEDS: Azithromycin 500 MG in 0.9 % Sodium Chloride 250 ML IVPB SCH (09:20)
[2021-08-31] MEDS: cefTRIAXone 1,000 MG in 0.9 % Sodium Chloride 10 ML IVP SCH (09:20)
[2021-08-31] MEDS: Furosemide 20 MG/2 ML VIAL IVP SCH ×2 (09:21→17:07)
[2021-08-31] MEDS: Insulin DETEMIR 100 UNIT/ML X5UNITS SUBQ SCH ×2 (09:22→20:44)
[2021-08-31] MEDS: Remdesivir 100 MG in 0.9 % Sodium Chloride 100 ML IVPB SCH (11:28)
[2021-08-31] MEDS: Gabapentin 400 MG CAPSULE PO SCH (20:44)
[2021-09-01] MEDS: Ipratropium 1 PUFF INHALER IH SCH ×7 (00:16→23:20)
[2021-09-01] MEDS: *HR* Enoxaparin 40 MG/0.4 ML SYRINGE SQ SCH (05:09)
[2021-09-01] MEDS: Insulin LISPRO 300 UNITS/3 ML VIAL SUBQ SCH ×3 (07:30→17:37)
[2021-09-01] MEDS: Remdesivir 100 MG in 0.9 % Sodium Chloride 100 ML IVPB SCH (09:30)
[2021-09-01] MEDS: Furosemide 20 MG/2 ML VIAL IVP SCH ×2 (10:33→17:38)
[2021-09-01] MEDS: Insulin DETEMIR 100 UNIT/ML X5UNITS SUBQ SCH ×2 (10:34→20:53)
[2021-09-01] MEDS: cefTRIAXone 1,000 MG in 0.9 % Sodium Chloride 10 ML IVP SCH (10:35)
[2021-09-01] MEDS: Cyanocobalamin (B-12) 1,000 MCG TABLET PO SCH (10:36)
[2021-09-01] MEDS: Cholecalciferol (D-3) 1,000 UNIT (25MCG) TABLET PO SCH (10:36)
[2021-09-01] MEDS: Azithromycin 500 MG in 0.9 % Sodium Chloride 250 ML IVPB SCH (10:36)
[2021-09-01] MEDS: lisinopriL 5 MG TABLET PO SCH (10:36)
[2021-09-01] MEDS: Gabapentin 400 MG CAPSULE PO SCH (20:53)
[2021-09-02] MEDS: Ipratropium 1 PUFF INHALER IH SCH ×6 (03:50→23:48)
[2021-09-02] MEDS: *HR* Enoxaparin 40 MG/0.4 ML SYRINGE SQ SCH (05:08)
[2021-09-02] MEDS: Cholecalciferol (D-3) 1,000 UNIT (25MCG) TABLET PO SCH (07:45)
[2021-09-02] MEDS: Cyanocobalamin (B-12) 1,000 MCG TABLET PO SCH (07:45)
[2021-09-02] MEDS: lisinopriL 5 MG TABLET PO SCH (07:45)
[2021-09-02] MEDS: Furosemide 20 MG/2 ML VIAL IVP SCH (07:45)
[2021-09-02] MEDS: Remdesivir 100 MG in 0.9 % Sodium Chloride 100 ML IVPB SCH (07:46)
[2021-09-02] MEDS: Insulin LISPRO 300 UNITS/3 ML VIAL SUBQ SCH ×3 (07:46→17:20)
[2021-09-02] MEDS: Furosemide 20 MG TABLET PO SCH (17:20)
[2021-09-02] MEDS: Gabapentin 400 MG CAPSULE PO SCH (20:27)
[2021-09-02] MEDS: Insulin DETEMIR 100 UNIT/ML X5UNITS SUBQ SCH (20:45)
[2021-09-02] MEDS ORDERED: Insulin LISPRO 300 UNITS/3 ML VIAL SUBQ SCH (21:00)
[2021-09-02 21:22] LABS: Basophils % 0.2 %; Hematocrit 28.7 % (35.3-44.9); Hemoglobin 9.3 g/dL (11.5-15.4); Immature Granulocytes % 0.5 % (0-4); Lymphocytes # 0.4 K/mcL (0.6-4.6); Lymphocytes % 8.8 %; Mean Corpuscular HGB Conc 32.4 g/dL (31.6-35.5); Mean Corpuscular Hemoglobin 29.6 pg (28.0-33.3); Mean Corpuscular Volume 91.4 fL (83.0-100.0); Mean Platelet Volume 9.8 fL (9.4-12.4); Monocytes # 0.6 K/mcL (0.0-1.3); Monocytes % 14.1 %; Neutrophils # 3.1 K/mcL (1.6-8.9); Platelet Count 232 K/mcL (140-400); Red Blood Count 3.14 M/mcL (3.82-4.97); Red Cell Distribution Width 14.3 % (11.5-14.5); Segmented Neutrophils % 76.4 %; White Blood Count 4.1 K/mcL (4.3-11.1)
[2021-09-02 21:35] LABS: Fibrinogen 394 mg/dL (169-393)
[2021-09-02 21:36] LABS: D-Dimer 717 ng/mLFEU (0-500)
[2021-09-02 21:47] LABS: Alanine Aminotransferase 12 Units/L (7-52); Albumin/Globulin Ratio 1.3 (1.1-2.2); Alkaline Phosphatase 47 Units/L (34-104); Aspartate Amino Transferase 13 Units/L (13-39); BUN/Creatinine Ratio 43 (6-26); Bilirubin,Indirect 0.3 mg/dL (0.0-1.0); Bilirubin,Total 0.3 mg/dL (0.3-1.0); Blood Urea Nitrogen 42 mg/dL (8-23); Calcium 7.4 mg/dL (8.6-10.3); Carbon Dioxide 24 mEq/L (23-29); Chloride 99 mEq/L (98-107); Globulin 2.4 g/dL (2.4-3.5); Glucose 358 mg/dL (70-105); Lactate Dehydrogenase 250 Units/L (140-271); Osmolality,Calculated 299 (280-300); Potassium 4.1 mEq/L (3.5-5.1); Sodium 132 mEq/L (136-145); Total Protein 5.4 g/dL (6.4-8.9); eGFR For African Americans > 60 (> 60); eGFR For Non-African Americans 55 (> 60)
[2021-09-02 22:05] LABS: Ferritin 315 ng/mL (10-120)
[2021-09-03] MEDS: Ipratropium 1 PUFF INHALER IH SCH ×4 (04:19→15:53)
[2021-09-03 06:59] LABS: Albumin 3.1 g/dL (3.5-5.7); Albumin/Globulin Ratio 1.3 (1.1-2.2); Bilirubin,Indirect 0.3 mg/dL (0.0-1.0); Bilirubin,Total 0.3 mg/dL (0.3-1.0); Globulin 2.3 g/dL (2.4-3.5); Total Protein 5.4 g/dL (6.4-8.9)
[2021-09-03] MEDS: lisinopriL 5 MG TABLET PO SCH (07:35)
[2021-09-03] MEDS: Remdesivir 100 MG in 0.9 % Sodium Chloride 100 ML IVPB SCH (07:35)
[2021-09-03] MEDS: Cholecalciferol (D-3) 1,000 UNIT (25MCG) TABLET PO SCH (07:35)
[2021-09-03] MEDS: Cyanocobalamin (B-12) 1,000 MCG TABLET PO SCH (07:35)
[2021-09-03] MEDS: Furosemide 20 MG TABLET PO SCH ×2 (07:35→16:44)
[2021-09-03] MEDS: *HR* Enoxaparin 40 MG/0.4 ML SYRINGE SQ SCH (07:36)
[2021-09-03] MEDS: Insulin LISPRO 300 UNITS/3 ML VIAL SUBQ SCH ×3 (07:36→16:44)
[2021-09-03] MEDS ORDERED: dexAMETHasone 4 MG TABLET PO SCH (09:00)
[2021-09-03 15:42] VITALS: BP 137/70; PULSE 82; TEMP 97.6; O2SAT 97
== END 2021-09-03 16:56 | DRG 177 ==
LOC: 3NENU 19:37 → EMEROOARM 19:37 → SUATTDRO 08-30 01:42 → 3NENU 08-30 02:53
PROVIDERS: ADMIT Student in an Organized Health Care Education/Training Program; ATTEND Internal Medicine